=== PATIENT | male | born 1950 | race Caucasian/White ===

== ENCOUNTER 2019-08-09 09:50 | Emergency (ER) | payer OTHER, SELFPAY ==
--- NOTE | 2019-08-09 09:52 | CTR_ITS ---
PROCEDURE INFORMATION: Exam: CT Abdomen And Pelvis Without Contrast Exam date and time: 08/09/2019 10:52 AM Age: 68 years old Clinical indication: Abdominal pain; Patient HX: Right flank pain x 4 days TECHNIQUE: Imaging protocol: Computed tomography of the abdomen and pelvis without contrast. Radiation optimization: All CT scans at this facility use at least one of these dose optimization techniques: automated exposure control; mA and/or kV adjustment per patient size (includes targeted exams where dose is matched to clinical indication); or iterative reconstruction. COMPARISON: No relevant prior studies available. RADIATION DOSE METRICS: Total DLP (mGy-cm): 1792.55 FINDINGS: Lungs: visualized portions of the lung bases normal. Liver: Mild nodularity of the liver is present. Correlate regarding risk factors for hepatocellular disease. Fatty infiltration of the liver. Gallbladder and bile ducts: Normal. No calcified stones. No ductal dilation. Pancreas: Normal. No ductal dilation. Spleen: Small accessory spleen. Adrenals: Normal. No mass. Kidneys and ureters: hydronephrosis and hydroureter secondary to a calcification within the distal ureter adjacent to the right ureterovesical junction measuring approximately 2-3 mm. Mass midpole left kidney posteriorly which needs further workup to exclude a renal cell carcinoma. 3 cm. 2 mm calcification in 1 mm calcification midpole right kidney Stomach and bowel: Unremarkable. No obstruction. No mucosal thickening. Appendix: Appendix normal. Intraperitoneal space: Unremarkable. No free air. No significant fluid collection. Vasculature: Unremarkable. No abdominal aortic aneurysm. Lymph nodes: Unremarkable. No enlarged lymph nodes. Bladder: Unremarkable as visualized. Reproductive: Unremarkable as visualized. Bones/joints: Degenerative changes are present within the spine. Soft tissues: Unremarkable. CT/CT kidney stone [id number] IMPRESSION: 1. Hydronephrosis and hydroureter secondary to a calcification within the distal ureter adjacent to the right ureterovesical junction measuring approximately 2-3 mm. 2. Mass midpole left kidney posteriorly which needs further workup to exclude a renal cell carcinoma. 3 cm. Follow-up CT with contrast is recommended. 3. Mild nodularity of the liver is present. Correlate regarding risk factors for hepatocellular disease. 4. Fatty infiltration of the liver. 5. Appendix normal. Radiation Dose CTDIVOL = (mGy): DLP = 1792.55 (mGy-cm)
--- NOTE | 2019-08-09 09:53 | W.ED.ABDPA2 ---
Documented by User: RENE Saenz 08/09/19 10:11 HPI - Abdominal Pain General: Chief Complaint: Urogenital-Male Stated Complaint: RIGHT FLANK PAIN Time Seen by Provider: 08/09/19 09:53 Source: patient Mode of arrival: ambulatory Limitations: no limitations History of Present Illness: HPI narrative: Patient comes in today for complaints of right side flank pain. Patient states pains been there for about 4 days. Patient has tried some back aid and a muscle relaxer with some relief on the first dose but then the second and third dose did not seem to help much. Patient states movement does not exacerbate pain. Patient does have a history of renal calculi. Patient is also had a history of parathyroid disorder for surgical removal. Patient appears well. Patient appears in mild pain at rest. MD elicited complaint: flank pain Review of Systems General: Reports: 10 or more systems reviewed and unremarkable except in HPI and below : Reports: flank pain (right) PFSH ED PFSH: Social History Smoking and tobacco status: former smoker Physical Exam Const: COMMON NORMALS: no acute distress and patient oriented x3 GENERAL APPEARANCE: cooperative HENMT: COMMON NORMALS: normocephalic, TM's normal bilaterally and Normal external nose present HEAD & SCALP: normal to inspection and normocephalic NOSE: Normal external nose present TYMPANIC MEMBRANE: TM's normal bilaterally MOUTH: Normal oral and palatal mucosa present THROAT: posterior oropharynx normal Eye: GENERAL EYE: appearance normal, both eyes and all related structures Neck/C-Spine: COMMON NORMALS: full ROM Lymph: LYMPHATIC: no lymphadenopathy noted Chest: COMMONS NORMALS: normal inspection of the chest Resp: COMMON NORMALS: normal respiratory effort EFFORT & INSPECTION: Yes able to speak in complete sentences Cardio: COMMON NORMALS: regular rate and regular rhythm RATE: regular rate RHYTHM: regular rhythm GI: COMMON NORMALS: non-tender : COMMON NORMALS: Yes no CVA tenderness BLADDER/KIDNEY EXAM: Yes no CVA tenderness Back/Pelvis: COMMON NORMALS: no CVA tenderness and thoracic and lumbar spine normal to inspection Extremity: COMMON NORMALS: normal to inspection Neuro: COMMON NORMALS: patient oriented x3 and moves all extremities Psych: COMMON NORMALS: mental status grossly normal and cooperative Skin: COMMON NORMALS: no rashes or lesions noted GENERAL SKIN EXAM: no rashes or lesions noted Course Vital Signs: Vital signs: Vital Signs Temperature 99.1 F 08/09/19 09:54 Pulse Rate 97 08/09/19 09:54 Respiratory Rate 17 08/09/19 09:54 Blood Pressure 168/97 08/09/19 09:54 Pulse Oximetry 97 08/09/19 09:54 Coding Level of Care Code ED Emergency Medical Tech for g Fwd Exam Comprehensive Documented by User: Jeffrey Hill DO 08/09/19 09:55 HPI - Abdominal Pain General: Chief Complaint: Urogenital-Male Stated Complaint: RIGHT FLANK PAIN Time Seen by Provider: 08/09/19 09:53 PFSH ED PFSH: Social History Smoking and tobacco status: former smoker Course Vital Signs: Vital signs: Vital Signs Temperature 99.1 F 08/09/19 09:54 Pulse Rate 97 08/09/19 09:54 Respiratory Rate 17 08/09/19 09:54 Blood Pressure 168/97 08/09/19 09:54 Pulse Oximetry 97 08/09/19 09:54 Coding Level of Care Code ED Emergency Medical Tech for Chg Fwd Exam Comprehensive
[2019-08-09 09:54] VITALS: BP 168/97; PULSE 97; RESP 17; TEMP 37.3; O2SAT 97; BMI 34.9
[2019-08-09 10:09] LABS: Basophils % 0.3 %; Eosinophils # 0.2 10^3/uL (0.0-0.8); Eosinophils % 1.2 %; Hematocrit 49.4 % (42.0-52.0); Hemoglobin 16.2 g/dL (11.7-16.6); Lymphocytes # 1.1 10^3/uL (0.8-4.8); Lymphocytes % 7.5 %; Mean Corpuscular HGB Conc 32.8 g/dL (30.0-36.0); Mean Corpuscular Hemoglobin 29.8 pg (28.0-34.0); Mean Corpuscular Volume 90.8 fL (80-94); Mean Platelet Volume 10.7 fL (7.4-10.4); Monocytes # 1.4 10^3/uL (0.2-0.9); Monocytes % 8.9 %; Neutrophils # 12.5 10^3/uL (1.8-7.7); Neutrophils % 81.8 %; Nucleated Red Blood Cells % 0 %; Platelet Count 184 10^3/cmm (130-400); Red Blood Count 5.44 10^6/uL (4.1-5.3); Red Cell Distribution Width 12.1 % (12.1-15.1); White Blood Count 15.2 10^3/uL (4.0-10.0)
[2019-08-09 10:16] VITALS: RESP 18
[2019-08-09] MEDS: morphine 4 mg/mL SDV 1 mL IVP ×2 (10:16→13:56)
[2019-08-09] MEDS: ondansetron 2 mg/ML SDV 2 mL 4 MG IVP (10:17)
[2019-08-09 10:34] LABS: Alanine Aminotransferase 29 U/L (0-41); Albumin Level 4.2 g/dL (3.5-5.2); Alkaline Phosphatase 75 IU/L (40-130); Anion Gap 17.8 (5-19); Aspartate Amino Transferase 19 U/L (0-40); Blood Urea Nitrogen 18 mg/dL (8-23); Calcium 9.8 mg/dL (8.5-10.5); Carbon Dioxide 24 mmol/L (22-29); Chloride 98 mmol/L (98-107); Globulin 4.3 g/dL (1.3-4.6); Glomerular Filtration Rate 50.4 mL/min (90-130); Glucose 122 mg/dL (65-115); Lipase 16 U/L (13-60); Osmolality Calculated 280 mOsm/kg (285-295); Potassium 3.8 mmol/L (3.5-5.1); Sodium 136 mmol/L (136-145); Total Bilirubin 0.9 mg/dL (0.15-1.2); Total Protein 8.5 g/dL (6.6-8.7)
[2019-08-09 10:51] LABS: Add Urine Microscopic? YES; Bilirubin Urine Neg (NEGATIVE); Blood Urine Trace (Negative); Glucose Urine UA Norm (Normal); Ketones Urine Negative (Negative); Leukocyte Esterase Urine Negative (Negative); Nitrate Urine Negative (Negative); Protein Urine Neg (Negative); Urine Appearance Clear (CLEAR); Urine Color Yellow (Yellow); Urobilinogen Urine Norm (Negative); pH Urine 5 (5-7)
[2019-08-09 10:52] LABS: Add Urine Culture? No; Bacteria Urine 1+; Mucus Urine TRACE; Squamous Epithelial Cell Urine 0-4 (0-5); WBC Urine 0-4 /hpf (0-5)
--- NOTE | 2019-08-09 12:24 | CTR_ITS ---
PROCEDURE INFORMATION: Exam: CT Abdomen And Pelvis With Contrast Exam date and time: 08/09/2019 12:27 PM Age: 68 years old Clinical indication: Abnormal findings; Abnormal radiologic finding of the abdomen; Radiologic exam and body structure: Renal CT, left renal mass; Patient HX: Right flank pain, left renal mass; Additional info: Left renal mass, abnorm imaging TECHNIQUE: Imaging protocol: Computed tomography of the abdomen and pelvis with intravenous contrast. Radiation optimization: All CT scans at this facility use at least one of these dose optimization techniques: automated exposure control; mA and/or kV adjustment per patient size (includes targeted exams where dose is matched to clinical indication); or iterative reconstruction. Contrast material: VISIPAQUE 320; Contrast volume: 95 ml; Contrast route: INTRAVENOUS (IV); COMPARISON: CT kidney stone [id number] 08/09/2019 10:50 AM RADIATION DOSE METRICS: Total DLP (mGy-cm): 1635.29 FINDINGS: Lungs: Mild dependent atelectasis is present. Liver: Mild fatty infiltration of the liver with focal fatty sparing adjacent to the gallbladder fossa. Gallbladder and bile ducts: Normal. No calcified stones. No ductal dilation. Pancreas: Normal. No ductal dilation. Spleen: Small accessory spleen. Adrenals: Normal. No mass. Kidneys and ureters: Mass lower pole left kidney with enhancement. Nodular component. Renal cell carcinoma until proven otherwise. Mild hydronephrosis and hydroureter secondary to a calcification within the distal ureter adjacent to the right ureterovesical junction measuring approximately 2-3 mm. Stomach and bowel: Unremarkable. No obstruction. No mucosal thickening. Appendix: Appendix normal. Intraperitoneal space: Unremarkable. No free air. No significant fluid collection. Vasculature: Unremarkable. No abdominal aortic aneurysm. Lymph nodes: Unremarkable. No enlarged lymph nodes. Bladder: Unremarkable as visualized. Reproductive: Unremarkable as visualized. Bones/joints: Degenerative changes are present within the spine. Mild compression fracture of the anterior column of L1. No retropulsed fragment. Soft tissues: Unremarkable. CT/CT abdomen pelvis w con* [id number] IMPRESSION: 1. Mass lower pole left kidney with enhancement. Nodular component. Renal cell carcinoma until proven otherwise. 3.8 cm. Within the perirenal space. 2. Appendix normal. 3. Mild hydronephrosis and hydroureter secondary to a calcification within the distal ureter adjacent to the right ureterovesical junction measuring approximately 2-3 mm. Elizabeth ureteric stranding and mild perinephric stranding. 4. Mild fatty infiltration of the liver with focal fatty sparing adjacent to the gallbladder fossa. 5. Mild compression fracture of the anterior column of L1. No retropulsed fragment. Radiation Dose CTDIVOL = (mGy): DLP = 1635.29 (mGy-cm)
--- NOTE | 2019-08-09 12:45 | DCPLANNER ---
services program manager was asked to schedule a follow up appointment for patient with Dr. Velez. services program manager called the office of Dr. Velez, spoke with Cris, gave clinic patients information. services program manager was told that patients information would be printed and reviewed. Clinic will call patient with appointment information. Patient has [employer] insurance, major case detective called May with [facility] and told her that patient was needing a follow up with Dr. Velez.
[2019-08-09] MEDS: iodixanol 320 mg/mL 100mL Btl IV (13:18)
[2019-08-09] MEDS: cefTRIAXone 1,000 MG in sodium chloride 0.9% (plus) 50 ML 100 MG IV (13:55)
[2019-08-09 13:56] VITALS: RESP 16; O2SAT 96
[2019-08-09] MEDS: ketorolac 30 mg/mL INJ 10 MG IVP (13:56)
[2019-08-09 14:00] VITALS: BP 172/99; PULSE 89; RESP 16; O2SAT 94
[2019-08-09 14:20] VITALS: BP 172/99; PULSE 90; RESP 17; O2SAT 95
--- NOTE | 2019-08-14 13:41 | DCPLANNER ---
Patient has a follow up appointment scheduled for 08.15.19 with ortho. Clinic will call patient with appointment information.
--- NOTE | 2019-08-16 11:08 | DCPLANNER ---
Patient did attend appointment scheduled for 08.15.[address] Velez.
== END 2019-08-09 14:24 | disposition home or self-care (01) ==
PROVIDERS: Emergency Provider Nurse Practitioner Family; PCP Internal Medicine
DX: R10.9 Unspecified abdominal pain (principal); Z87.891 Personal history of nicotine dependence
CPT/HCPCS: 12345; 36415; 74176; 74177; 80053; 81001; 83690; 85025; 96365; 96375; 96376; 99283; 99284; J0696; J1885; J2270; J2405; Q9967

== ENCOUNTER 2019-08-15 08:56 | Outpatient (CLI) | payer OTHER, SELFPAY ==
--- NOTE | 2019-08-15 09:02 | XRR_ITS ---
PROCEDURE INFORMATION: Exam: XR Abdomen, 1 View Exam date and time: 08/15/2019 9:24 AM Age: 68 years old Clinical indication: Condition or disease; Kidney or ureter condition; Calculus (stone) in ureter; Additional info: Kidney stone TECHNIQUE: Imaging protocol: XR of the abdomen. Views: Frontal supine view of the abdomen. 1 View. COMPARISON: CT abdomen pelvis w con* [id number] 08/09/2019 1:05 PM FINDINGS: Gastrointestinal tract: Normal. No bowel dilation. Bones/joints: Degenerative changes of bilateral hip joints. Diffuse demineralization of the bones. Degenerative changes of the lumbar spine. No acute fracture. No dislocation. XR/XR KUB [id number] IMPRESSION: No acute abnormality.
== END 2019-08-15 08:57 | disposition home or self-care (01) ==
LOC: RAD 08:59
PROVIDERS: PCP Internal Medicine; Visit Provider Urology
DX: N20.0 Calculus of kidney (principal)
CPT/HCPCS: 74018; 81001; 82365

== ENCOUNTER 2019-12-25 09:27 | Outpatient (CLI) | payer OTHER, SELFPAY ==
--- NOTE | 2019-12-25 17:45 | ONC CON_ITS ---
Dr. Sheikh New Patient Note Patient: Hemant Michaels Unit #: [id number]: [id number] Dicatated By: Savita Sheikh M.D.Date of Visit: Dec 25, 2019 Onc MED New Patient/Consult Referring Physician: Paige Aguilar History of Present Illness: Mr. 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 Patient tolerated procedure well now being followed by Dr. Velez, urologist As per patient his PMD wanted to make sure that nothing else is needed after surgery, that is why he was referred to oncology clinic. Patient denies any fever chills, denies any nausea vomiting denies any hematuria denies any pelvic pain denies any weight loss denies any jaundice denies any hemoptysis or hematemesis. Past Medical History: Mr. Michaels's medical history is unremarkable. Past Surgical History: Mr. Michaels's surgical/procedural history consists of left nephrectomy, lithotripsy, and parathyroidectomy. Medications: Rosuvastatin Calcium 0.5 Tablet (of 20 mg) Oral daily Allergies: No Known Allergies. Social History: Mr. Michaels is and he is an unknown. Mr. Michaels no longer smokes. Family History: Mr. Michaels's mother at age 98: natural causes. Mr. Michaels's father at age 91: heart disease, and prostate cancer. Review Of Symptoms: Constitutional - Appetite is good and weight is stable. No fever, night sweats, or hot flashes. Energy level is fair, ENMT - Positive for sinus congestion/drainage. No mouth sores. No sore throat or difficulty swallowing, Hematologic/Lymphatic - No abnormal bruising or bleeding, Respiratory - No shortness of breath. No cough. No pleuritic pain or hemoptysis, Cardiovascular - No angina pain. No palpitations, Gastrointestinal - No nausea or vomiting. Positive for heartburn and acid reflux. No diarrhea or constipation. No blood in the stool or black stools, Genitourinary (M) - No dysuria or hematuria. Positive for urinary frequency. No urgency or incontinence, Musculoskeletal - No joint or bone pain, Neurologic - No headache or dizziness. No numbness or tingling. No other focal neurologic symptoms, Psychiatric - No anxiety or depression. No insomnia. Vital Signs: Performed on Dec 25, 2019 11:37: 0, 42.18 (HIGH), 2.03 sq.m, 62.00 in, 100 %, 75 /min, 24 /min, 147/89 mm(hg) (HIGH), 98.1 F (LOW), and 230.6 lbs (HIGH). Performance Status: 0 - Fully active, able to carry on all predisease activities without restrictions. (ECOG) Physical Examination: ENMT - No mouth sores, no thrush, no jaundice, Respiratory - Lungs are clear to auscultation, Cardiovascular - Regular rate and rhythm of heart, Abdomen - Soft, bowel sounds present, Extremities - No visible edema. Lab/Imaging: Most recent lab results are not available for this patient. 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 status post left nephrectomy done on September 24, 2019 final pathology report showed 3.6 x 3.5 x 3 cm unifocal, clear-cell renal cell carcinoma with nose sarcomatoid or rhabdoid feature, grade 2, clear surgical margins, final pathology T1a,( less than 4 cm), NX, MX, stage I Plan: Discussed with patient regarding his disease status and further options, considering early stage disease, as per NCCN guidelines no role of adjuvant therapy rather follow-up with CT scan or MRI scan (preferred) of abdomen pelvis within 3 to 12 months of surgery and then annually for 3 years and longer if clinically indicated and a chest x-ray annually for 5 years and clinical evaluation annually with H&P. Patient being followed by Dr. Velez regularly, we will see him on as-needed basis. Signed By: Savita Sheikh M.D. <<Signature on File>>
== END 2019-12-25 09:28 | disposition home or self-care (01) ==
LOC: ONCMED 09:31
PROVIDERS: PCP Family Medicine; Visit Provider Internal Medicine Hematology & Oncology
DX: C64.2 Malignant neoplasm of left kidney, except renal pelvis (principal); Z90.5 Acquired absence of kidney
CPT/HCPCS: 99203

== ENCOUNTER 2020-01-16 14:32 | Outpatient (CLI) | payer OTHER, SELFPAY ==
--- NOTE | 2020-01-16 14:47 | XR_ITS ---
WS: [id number] Chest 2 views, 01/16/2020 Clinical Data: Renal mass Comparison: None. Findings: No nodules, masses or effusions are seen. The heart is normal. The pulmonary vascularity is not increased. No pneumonia or pneumothorax is seen. The aortic arch and descending aorta are tortuo us. XR/XR chest 2V* [id number] Impression: Atherosclerosis.
[2020-01-16 15:13] LABS: Basophils # 0.1 10^3/uL (0.0-0.1); Basophils % 0.7 %; Eosinophils # 0.3 10^3/uL (0.0-0.8); Eosinophils % 3.3 %; Hematocrit 44.4 % (42.0-52.0); Hemoglobin 14.7 g/dL (11.7-16.6); Lymphocytes # 1.8 10^3/uL (0.8-4.8); Lymphocytes % 23.7 %; Mean Corpuscular HGB Conc 33.1 g/dL (30.0-36.0); Mean Corpuscular Hemoglobin 29.5 pg (28.0-34.0); Mean Corpuscular Volume 89.2 fL (80-94); Mean Platelet Volume 10.7 fL (7.4-10.4); Monocytes # 0.9 10^3/uL (0.2-0.9); Monocytes % 12.2 %; Neutrophils # 4.45 10^3/uL (1.8-7.7); Neutrophils % 59.6 %; Nucleated Red Blood Cells % 0 %; Platelet Count 233 10^3/cmm (130-400); Red Blood Count 4.98 10^6/uL (4.1-5.3); Red Cell Distribution Width 12.8 % (12.1-15.1); White Blood Count 7.5 10^3/uL (4.0-10.0)
[2020-01-16 15:51] LABS: Alanine Aminotransferase 28 U/L (0-41); Albumin Level 4.3 g/dL (3.5-5.2); Alkaline Phosphatase 90 IU/L (40-130); Anion Gap 15.5 (5-19); Aspartate Amino Transferase 19 U/L (0-40); Blood Urea Nitrogen 19 mg/dL (8-23); Calcium 9.2 mg/dL (8.5-10.5); Carbon Dioxide 26 mmol/L (22-29); Chloride 103 mmol/L (98-107); Globulin 3.3 g/dL (1.3-4.6); Glomerular Filtration Rate 46.4 mL/min (90-130); Glucose 102 mg/dL (65-115); Osmolality Calculated 292 mOsm/kg (285-295); Potassium 4.5 mmol/L (3.5-5.1); Sodium 140 mmol/L (136-145); Total Bilirubin 0.3 mg/dL (0.15-1.2); Total Protein 7.6 g/dL (6.6-8.7)
== END 2020-01-16 14:33 | disposition home or self-care (01) ==
PROVIDERS: PCP Family Medicine; Visit Provider Urology
DX: N28.89 Other specified disorders of kidney and ureter (principal); I70.90 Unspecified atherosclerosis
CPT/HCPCS: 36415; 71046; 80053; 81003; 85025

== ENCOUNTER 2020-04-15 14:33 | Outpatient (CLI) | payer OTHER, SELFPAY ==
--- NOTE | 2020-04-15 14:30 | FLR_ITS ---
PROCEDURE INFORMATION: Exam: KUB Exam date and time: 04/15/2020 2:48 PM Age: 69 years old Clinical indication: Condition or disease; Cancer; Kidney, left; kidney Additional info: Left Kidney cancer TECHNIQUE: Imaging protocol: KUB. COMPARISON: CR XR KUB [id number] 08/15/2019 9:17 AM FINDINGS: Abdomen: The bowel gas pattern is within normal limits in a nonspecific pattern. Negative for radiodense urinary tract stones. Bones are unremarkable. XR/XR KUB [id number] IMPRESSION: Negative examination of the abdomen
== END 2020-04-15 14:34 | disposition home or self-care (01) ==
LOC: RAD 14:35
PROVIDERS: PCP Family Medicine; Visit Provider Urology
DX: C64.2 Malignant neoplasm of left kidney, except renal pelvis (principal)
CPT/HCPCS: 74018; 80053; 81003; 85025

== ENCOUNTER → 2020-04-16 10:02 | Outpatient (BNVA) | payer OTHER, SELFPAY | PROVIDERS: PCP Family Medicine; Visit Provider Surgery | DX: L72.3 Sebaceous cyst (principal); Z20.822 Contact with and (suspected) exposure to COVID-19 | CPT/HCPCS: 87635 ==

== ENCOUNTER 2020-04-21 06:04 | Day surgery (SDC) | payer OTHER, SELFPAY ==
[2020-04-17 14:43] VITALS: BMI 39.6
[2020-04-21 06:15] VITALS: BP 165/91; PULSE 73; RESP 18; TEMP 36.6; O2SAT 97
--- NOTE | 2020-04-21 06:29 | W.PM.OPSUD ---
Surgery/Procedure H&P Update DATE OF PROCEDURE: April 21, 2020 DATE H&P PERFORMED: 04/14/20 H&P UPDATE INFORMATION: I have reviewed H&P completed within last 30 days, I have examined patient prior to procedure and No changes to prior documentation PREOP DIAGNOSIS: Left-sided back cyst PRIMARY INDICATION FOR PROCEDURE: The same PLANNED PROCEDURE: Operation Date: 04/21/20 07:25 Proposed Procedures p EXCISION OF LEFT BACK CYST 93267 L72.3(Left) - Roshan Recinos MD
[2020-04-21] MEDS: sodium chloride 0.9% 1,000 ML 30 ML IV (06:37)
--- NOTE | 2020-04-21 06:55 | ANES.PREANE2 ---
Pre-Anesthetic Assessment Pre-Anesthetic Assessment: Height/Weight: Height 1.65 m Weight 107.955 kg Preop Diagnosis: Left-sided back cyst Proposed Procedure: Operation Date: 04/21/20 07:25 Proposed Procedures p EXCISION OF LEFT BACK CYST 42645 L72.3(Left) - Roshan Recinos MD Was Beta Kendal taken within 24 hours: N/A Last intake: Intake Last Liquid Date 04/20/20 Last Liquid Time 20:00 Last Solid Date 04/20/20 Last Solid Time 20:00 Social: Social History: No alcohol and No tobacco Exam: Pre-Anes Outpt Exam: alert, oriented x 3, clear to auscultation bilaterally and regular rate & rhythm Airway: Submandibular: WNL Cervical ROM: WNL MP: 2 Additional comments: upper edentulous : : Chronic renal Insufficiency GI: GI: GERD Metabolic: Metabolic: Morbid obesity Anesthetic Plan: ASA status: 3 Anesthesia: General Risk of > 500 ml blood loss (7ml/kg in children): No Meds/Allergies Current Medications: Current Medications Generic Name Dose Route Start Last Admin Trade Name Freq PRN Reason Stop Dose Admin Sodium Chloride 1,000 mls @ 30 ml s/hr 04/21/20 06:15 04/21/20 06:37 Sodium Chloride 0.9% IV 30 mls/hr .Q24H XAVIER Administration PFSH Anesthesia PFSH: Medical History (Updated 04/18/20 @ 07:49 by Arvin Velez MD) Arthritis Chronic kidney disease Clear cell carcinoma of left kidney GERD (gastroesophageal reflux disease) Renal calculi Urolithiasis Surgical History History of thyroid surgery Family History Mother Cancer Father No problems noted. Social History Smoking and tobacco status: former smoker Alcohol intake: never Marital status: Current occupational status: retired History of recent travel: No Data Anesthesia Cardiac Studies: No Data to Display
--- NOTE | 2020-04-21 07:27 | SUR.OPER ---
post debridement measurement - 8x2x2 cm
[2020-04-21] MEDS: lidocaine 2% INJ 20 mL INJECTION (07:29)
[2020-04-21] MEDS: neomycin-poly-bacitracin oint 28 gm 1 APPLIC TOPICAL (07:31)
--- NOTE | 2020-04-21 07:35 | P.OP_ITS ---
Operative Report Date of procedure: April 21, 2020 Pre-op Diagnosis: Left-sided back cyst Post-op diagnosis: other (Left sided sebaceous cyst with surrounding indurated subcutaneous tissue) Procedure Done: Excision of left sided back mass Specimens removed/disposition: Left-sided back mass measures 8 x 3 x 2 cm Short sutures marked superior and long sutures marked right lateral Surgeon: Roshan Recinos Floor Coverings Salesperson: ip technology transactions attorney Misty Circulating nurse Pia Anesthesia: MAC (Liza Nino) Estimated blood loss (mL): 5 Condition: stable Disposition: same day Brief History: This is a pleasant 69 years old gentleman presents with recurrent infection of left-sided back sebaceous cyst. Full H&P and informed consent per chart. Procedure: After identifying the patient holding area, left-sided back mass was marked before the procedure by myself, patient was then taken to the operative suite, was placed in right lateral position, All pressure points were padded.IV antibiotics were given per protocol,IV propofol was infused by the anesthesia provider, prep and drape of the left upper and mid back regions were done under the usual sterile technique. Time-out was done verifying the patient's name/date of /planned procedure and destination after the procedure, all were in agreement. After palpation of the mass Infiltration of lidocaine 2%.I did an elliptical incision on top of the mass including the punctum. I was able to dissect using sharp dissection and the whole cyst was excised from the surrounding tissues i ncluding indurated subcutaneous tissues that was excised as well en mass, the specimen was excised and marked with short sutures superior and long sutures marked right lateral. Measurements of the wound after excision of the mass 8 x 2 x 2 cm. Copious and thorough irrigation of the cavity was done and hemostasis, followed by deep dermal closure by 2-0 Vicryl, followed by 3-0 Vicryl then continuous 2/0 nylon for skin closure. Lidocaine 2% was injected at the site of the incision, followed by triple antibiotic ointment and dry dressing then pressure dressing. Patient tolerated the procedure well, counts of instruments, needles and sponges were completed at the end of the procedure. And then patient was taken to the recovery area in stable condition. I was present for the whole entire procedure
[2020-04-21 07:39] VITALS: BP 124/75; PULSE 81; RESP 17; TEMP 36.5; O2SAT 92
[2020-04-21 07:45] VITALS: BP 132/79; PULSE 80; RESP 16; TEMP 36.6; O2SAT 95
[2020-04-21 07:50] VITALS: BP 144/89; PULSE 83; RESP 18; TEMP 36.6; O2SAT 94
[2020-04-21 08:17] VITALS: BP 140/82; PULSE 82; RESP 18; O2SAT 95
[2020-04-21] MEDS: HYDROcodone-acetaminophen 5-325 mg Tablet 1 TAB PO (08:29)
--- NOTE | 2020-04-21 12:28 | ANE.PACU2 ---
Inpatient post-anesthesia follow up: Airway intact: Yes Vital signs: Temperature 97.8 F Pulse Rate 82 Respiratory Rate 18 Blood Pressure 140/82 Pulse Oximetry 95 Oxygen Delivery Me thod Room Air Oxygen Flow Rate Fraction of Inspir ed Oxygen Hydration adequate: Yes Nausea and vomiting: No Pain level: 1 Mental status: Baseline
--- NOTE | 2020-04-21 15:11 | W.PM.OPSUD ---
Surgery/Procedure H&P Update DATE OF PROCEDURE: April 21, 2020 DATE H&P PERFORMED: 04/14/20 H&P UPDATE INFORMATION: I have reviewed H&P completed within last 30 days, I have examined patient prior to procedure, No changes to prior documentation and H&P is in [facility] EMR on date indicated PREOP DIAGNOSIS: Bladder stones PLANNED PROCEDURE: Operation Date: 04/21/20 07:25 Proposed Procedures p EXCISION OF LEFT BACK CYST 16014 L72.3(Left) - Roshan Recinos MD
== END 2020-04-21 08:45 | disposition home or self-care (01) ==
PROVIDERS: PCP Family Medicine; Visit Provider Surgery
PROC: (CPT 11406; principal; 2020-04-21 07:15)
DX: L72.0 Epidermal cyst (principal); K21.9 Gastro-esophageal reflux disease without esophagitis; E66.01 Morbid (severe) obesity due to excess calories; Z68.39 Body mass index [BMI] 39.0-39.9, adult; M19.90 Unspecified osteoarthritis, unspecified site; N18.9 Chronic kidney disease, unspecified; Z87.891 Personal history of nicotine dependence
CPT/HCPCS: 11406; 12034; 88304; 96365; J0131; J0690; J2704; J3010; J7030

== ENCOUNTER 2020-07-16 13:15 | Outpatient (CLI) | payer OTHER, SELFPAY ==
--- NOTE | 2020-07-16 13:15 | XR_ITS ---
WS: [id number] KUB, AP view, 07/16/2020 Clinical Data: N20.9 - Urinary calculus, unspecified Comparison: KUB, 04/15/2020. Findings: No abnormal intraabdominal masses or calcifications are seen. There is no dilatated small bowel or ev idence of obstruction. There are phleboliths in the true pelvis. There is a large amount of fecal material throughout the co nathen. XR/XR KUB [id number] Impression: Negative KUB.
[2020-07-16 13:52] LABS: Basophils # 0.1 10^3/uL (0.0-0.1); Eosinophils # 0.2 10^3/uL (0.0-0.8); Eosinophils % 2.8 %; Hematocrit 43.1 % (42.0-52.0); Hemoglobin 13.9 g/dL (11.7-16.6); Lymphocytes # 1.8 10^3/uL (0.8-4.8); Lymphocytes % 27.1 %; Mean Corpuscular HGB Conc 32.3 g/dL (30.0-36.0); Mean Corpuscular Hemoglobin 29.9 pg (28.0-34.0); Mean Corpuscular Volume 92.7 fL (80-94); Mean Platelet Volume 10.4 fL (7.4-10.4); Monocytes # 0.7 10^3/uL (0.2-0.9); Monocytes % 11.1 %; Neutrophils # 3.85 10^3/uL (1.8-7.7); Neutrophils % 57.9 %; Nucleated Red Blood Cells % 0 %; Platelet Count 215 10^3/cmm (130-400); Red Blood Count 4.65 10^6/uL (4.1-5.3); Red Cell Distribution Width 12.4 % (12.1-15.1); White Blood Count 6.7 10^3/uL (4.0-10.0)
== END 2020-07-16 13:16 | disposition home or self-care (01) ==
PROVIDERS: PCP Family Medicine; Visit Provider Urology
DX: C64.2 Malignant neoplasm of left kidney, except renal pelvis (principal); N20.9 Urinary calculus, unspecified
CPT/HCPCS: 36415; 74018; 80053; 81003; 85025

== ENCOUNTER 2020-07-25 07:52 | Outpatient (CLI) | payer OTHER, SELFPAY ==
--- NOTE | 2020-07-25 08:21 | XR_ITS ---
WS: [id number] PA and lateral chest, 07/25/2020 Clinical Data: CLEAR CELL CARCINOMA OF LEFT KIDNEY Comparison: PA and lateral chest, 01/16/2020. Findings: No nodules, masses or effusions are seen. The heart is normal. The pulmonary vascularity is not increased. No pneumonia or pneumothorax is seen. The aortic arch and descending aorta are tortuo us. XR/XR chest 2V* [id number] Impression: Atherosclerosis.
[2020-07-25] MEDS: iodixanol 320 mg/mL 100mL Btl IV (08:22)
--- NOTE | 2020-07-25 09:30 | CT_ITS ---
WS: [id number] CT ABDOMEN AND PELVIS WITH AND WITHOUT CONTRAST HISTORY: ABDOMINAL MASS TECHNIQUE: Unenhanced 5 mm axial imaging first performed through the abdomen. Post contrast imaging t hrough the abdomen and pelvis. Oral contrast has been provided. Sagittal and coronal reformats are s ubmitted. All CT scans at [facility] use at least one of these dose optimization techniqu es: automated exposure control; mA and/or kV adjustment per patient size (includes targeted exams whe re dose is matched to clinical indication); or iterative reconstruction. CONTRAST: Visipaque 320; 95 mL IV. DLP: 4408.8 mGy.cm COMPARISON: 08/09/2019 Lung bases are clear. Heart is normal size. Small hiatal hernia. Liver normal size. Fat-containing lesion measuring 12 mm along the diaphragmatic surface of the liver was not present on the prior exam. No additional abnormalities in the liver. Gallbladder, pancreas, spleen and adrenal glands are negative. Very mild atherosclerosis aorta. RIGHT kidney: No calcification or mass or obstruction. LEFT kidney: Prior LEFT nephrectomy. No mass at the resection site or renal fossa. No GI tract obstruction. The appendix is normal. There are a few diverticula in the sigmoid colon wit hout inflammation. Postsurgical changes along the anterior abdominal wall. Small umbilical hernia contains fat only. In the central mesentery there mesenteric misting with the pseudocapsule consistent with mesenteric a denitis. No associated adenopathy. There is an additional lipomatous mass with soft tissue stranding extending into the LEFT abdomen. Broad abutment of the anterior abdominal wall musculature of this fa tty tumor. There is also displacement of the small bowel loops but no obstruction. Encapsulated fatty mass extends over length of 12.2 cm x 13.6 x 10.5 cm. No nodularity or soft tissue mass. Well-distended urinary bladder. No enhancing masses in the bladder. Straightening of the normal lumbar lordosis. No osteoblastic or osteolytic bone disease. CT/CT abdomen pelvis wo/w [id number] IMPRESSION: 1. Status post LEFT nephrectomy. No mass at the LEFT renal bed or adenopathy. 2. Normal RIGHT kidney. 3. Central sclerosing mesenteritis with progression since 08/09/2019. 4. Adjacent encapsulated fat-containing mass with central soft tissue strandin g which is in part contiguous with the sclerosing mesenteritis. This fatty mass measures 12.2 x 13.6 x 10.5 cm and is new since 08/09/2019. Cannot exclude lipo sarcoma but this mass is probably benign. 5. Small fatty tumor along the diaphragmatic surface RIGHT lobe of the liver m easures 12 mm a new since 08/09/2019.
== END 2020-07-25 07:53 | disposition home or self-care (01) ==
LOC: RAD 07:55
PROVIDERS: PCP Family Medicine; Visit Provider Urology
DX: R19.04 Left lower quadrant abdominal swelling, mass and lump (principal); C64.2 Malignant neoplasm of left kidney, except renal pelvis; Z90.5 Acquired absence of kidney; K65.4 Sclerosing mesenteritis; D49.0 Neoplasm of unspecified behavior of digestive system; I70.90 Unspecified atherosclerosis
CPT/HCPCS: 71046; 74178; 81003

== ENCOUNTER → 2020-07-30 10:04 | Outpatient (BNVA) | payer OTHER, SELFPAY | PROVIDERS: PCP Family Medicine; Visit Provider Surgery | DX: R19.04 Left lower quadrant abdominal swelling, mass and lump (principal); Z20.822 Contact with and (suspected) exposure to COVID-19 | CPT/HCPCS: 87635 ==

== ENCOUNTER 2020-08-04 16:20 | Inpatient (IN) | payer OTHER, SELFPAY ==
[2020-08-01 12:48] VITALS: BMI 38.7
[2020-08-03 20:05] VITALS: BP 135/80; PULSE 96; RESP 17; TEMP 36.6; O2SAT 94
[2020-08-04] VITALS (14 sets, daily range): BP systolic 136–162; BP diastolic 84–97; PULSE 74–98; RESP 12–29; TEMP 36.1–37; O2SAT 93–100
--- NOTE | 2020-08-04 12:08 | W.PM.OPSUD ---
Surgery/Procedure H&P Update DATE OF PROCEDURE: August 04, 2020 DATE H&P PERFORMED: 07/28/20 H&P UPDATE INFORMATION: I have reviewed H&P completed within last 30 days, I have examined patient prior to procedure and No changes to prior documentation PREOP DIAGNOSIS: Abdominal mass PLANNED PROCEDURE: Operation Date: 08/04/20 12:25 Proposed Procedures p lap possible open excision abd mass, possible bowel resection 04175 R19.0(Not Applicable) - Noman Dick MD
--- NOTE | 2020-08-04 12:45 | ANES.PREANE2 ---
Pre-Anesthetic Assessment Pre-Anesthetic Assessment: Height/Weight: Height 1.68 m Weight 108.862 kg Temp Pulse Resp BP Pulse Ox 98.6 F 74 18 136/86 95 08/04/20 11:31 08/04/20 11:31 08/04/20 11:31 08/04/20 11:31 08/04/20 11:31 Preop Diagnosis: Abdominal mass Proposed Procedure: Operation Date: 08/04/20 12:25 Proposed Procedures p lap possible open excision abd mass, possible bowel resection 53150 R19.0(Not Applicable) - Noman Dick MD Familial anesthetic complications: none Was Beta Kendal taken within 24 hours: N/A Was Clonidine taken within 24 hours: N/A Last intake: Intake Last Liquid Date 08/03/20 Last Liquid Time 22:30 Last Solid Date 08/03/20 Last Solid Time 22:30 Social: Social History: No alcohol and No tobacco Exam: Pre-Anes Outpt Exam: alert, oriented x 3, clear to auscultation bilaterally and regular rate & rhythm Airway: Cervical ROM: WNL MP: 2 Dentition: False (uppers) GI: GI: GERD Comments: GI mass Metabolic: Metabolic: Hyperlipidemia and Morbid obesity Anesthetic Plan: ASA status: 3 Anesthesia: General Risk of > 500 ml blood loss (7ml/kg in children): No PFSH Anesthesia PFSH: Medical History Arthritis Chronic kidney disease Clear cell carcinoma of left kidney GERD (gastroesophageal reflux disease) Renal calculi Urolithiasis Surgical History (Updated 07/28/20 @ 10:20 by Noman Dick MD) H/O left nephrectomy History of colonoscopy 2019 History of thyroid surgery Family History Mother Cancer Father No problems noted. Social History Smoking and tobacco status: former smoker Alcohol intake: never Marital status: Current occupational status: retired History of recent travel: No Data Anesthesia Cardiac Studies: No Data to Display
--- NOTE | 2020-08-04 16:06 | PM.OP ---
Operative Report Date of procedure: August 04, 2020 Pre-op Diagnosis: 1. 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 Abdominal mass measuring 13 x [address] scan 3. Central sclerosing mesenteritis Post-op Findings: 1. Abdominal mass measuring 15 x 12 x 10 cm adherent to the anterior abdominal wall inferior to the prior robotic incision. 2. Adhesions to the central mesentery of small bowel Procedure Done: 1. Laparoscopic resection of intra-abdominal mass 2. Laparoscopic lysis of adhesions 15 minutes Specimens removed/disposition: Abdominal mass Peritoneum from central mesentery Surgeon: Noman Dick Anesthesia: General Estimated blood loss (mL): 20 IV fluids (mL): 1,000 Urine output (mL): 100 Condition: stable Disposition: PACU Procedure: The patient was taken to the operating room and intubated under general anesthesia after IV antibiotic had been administered. A Jaquez catheter was placed and the abdomen is prepped and draped in a sterile manner. A 1 cm incision was made in the right upper quadrant using 15 blade, subcu tissues divided and a varies needle was placed and 15 mm of pneumoperitoneum was created. Using Optiview technique a 10 a 5 mm port was placed with a 5 mm 30 degree scope was introduced. On examination of the peritoneal cavity there is no evidence of peritoneal carcinomatosis or liver metastasis. 2 separate 5 mm ports were placed in the anterior axillary line at the level of the umbilicus and in the right lower quadrant under direct visualization. It appeared that the large mass was adherent to the abdominal wall inferior to the umbilicus and also adhesed to omentum as well as central mesentery. Using LigaSure lysis of adhesions was performed until the omentum as well as the central mesentery was from the abdominal mass and the mass itself was attached just to the abdominal wall. Using LigaSure, the retrorectus space was entered and the mass along with the posterior rectus sheath/transversalis fascia/peritoneum was excised from the anterior abdominal wall by dissecting in the retrorectus space until the mass was completely from the abdominal wall. There did not appear to be any significant involvement of the retrorectus space. 10 mm clips were placed along the edge of the defect in the peritoneum to identify the site of the excision for any future intervention if needed. 20 cc of saline mixed with 20 of Exparel mixed with 20 cc of 0.5% Marcaine infiltrated in the midclavicular line for a TAP block under laparoscopic visualization. At this point the prior midline scar was excised, subcutaneous tissues divided to enter the peritoneal cavity and the wound protector was placed. The incision had to be extended both superiorly and inferiorly below the umbilicus in order to extract the large mass. The ports were removed and there was no bleeding noted from the port sites. The fascia in the midline was closed using running #1 looped PDS, subcutaneous tissue was irrigated with saline and approximate using interrupted 3-0 Vicryl suture and skin at all 4 incisions were closed using 4-0 Monocryl and Dermabond. The patient was extubated, Jaquez catheter removed and he was transferred to recovery room in stable condition.
[2020-08-04] MEDS: fentaNYL 50 mcg/mL INJ 2mL IVP ×2 (16:18→16:23)
[2020-08-04] MEDS: HYDROmorphone 1 mg/mL INJ 1 mL 0.25 MG IVP (16:29)
[2020-08-04] MEDS: D5-NS 0.45% + KCL 20 mEq 20 MEQ/1,000 ML BAG 100 MEQ IV (17:50)
[2020-08-04] MEDS: sennosides-docusate Tablet 1 TAB PO (17:52)
--- NOTE | 2020-08-04 18:03 | ANE.PACU2 ---
Inpatient post-anesthesia follow up: Airway intact: Yes Vital signs: Temperature 97.6 F Pulse Rate 84 Respiratory Rate 18 Blood Pressure 155/92 Pulse Oximetry 94 Oxygen Delivery Me thod Room Air Oxygen Flow Rate 8 Fraction of Inspir ed Oxygen Hydration adequate: Yes Nausea and vomiting: No Pain level: 3 Mental status: Baseline
[2020-08-04] MEDS: famotidine 20 mg/2 mL INJ IVP (20:20)
[2020-08-04] MEDS: HYDROcodone-acetaminophen 5-325 mg Tablet 1 TAB PO (20:20)
[2020-08-04] MEDS: morphine 4 mg/mL SDV 1 mL 3 MG IVP (23:08)
[2020-08-05] VITALS: BP 150/82; PULSE 100; RESP 17; TEMP 37.7; O2SAT 93
[2020-08-05] MEDS: D5-NS 0.45% + KCL 20 mEq 20 MEQ/1,000 ML BAG 100 MEQ IV (03:29)
[2020-08-05 04:00] VITALS: BP 134/79; PULSE 98; RESP 17; TEMP 37; O2SAT 94
--- NOTE | 2020-08-05 04:02 | PC.NURSE ---
SHIFT SUMMARY PT HAS DONE WELL THROUGHOUT THE NIGHT - PAIN WELL CONTROLLED WITH ORAL HYDROCODONE - PT HAS VOIDED WELL - DENIES COMPLAINTS OR NEEDS UP TO THIS POINT
[2020-08-05 08:00] VITALS: BP 136/79; PULSE 84; RESP 18; TEMP 36.9; O2SAT 93
[2020-08-05] MEDS: sennosides-docusate Tablet 1 TAB PO (08:33)
[2020-08-05] MEDS: famotidine 20 mg/2 mL INJ IVP (08:34)
[2020-08-05] MEDS: HYDROcodone-acetaminophen 5-325 mg Tablet 1 TAB PO ×2 (08:34→14:32)
--- NOTE | 2020-08-05 09:48 | PC.NURSE ---
rcvd telephone order to discontinue IV fluids. typewriter repairer put order in.
[2020-08-05 10:36] LABS: Basophils % 0.3 %; Eosinophils % 0.3 %; Hematocrit 40.2 % (42.0-52.0); Hemoglobin 13.2 g/dL (11.7-16.6); Lymphocytes # 1.2 10^3/uL (0.8-4.8); Mean Corpuscular HGB Conc 32.8 g/dL (30.0-36.0); Mean Corpuscular Hemoglobin 30.1 pg (28.0-34.0); Mean Corpuscular Volume 91.8 fL (80-94); Mean Platelet Volume 10.8 fL (7.4-10.4); Monocytes # 1.3 10^3/uL (0.2-0.9); Monocytes % 9.6 %; Neutrophils # 10.78 10^3/uL (1.8-7.7); Neutrophils % 80.6 %; Nucleated Red Blood Cells % 0 %; Platelet Count 201 10^3/cmm (130-400); Red Blood Count 4.38 10^6/uL (4.1-5.3); Red Cell Distribution Width 12.3 % (12.1-15.1); White Blood Count 13.4 10^3/uL (4.0-10.0)
--- NOTE | 2020-08-05 10:39 | PC.CHAP ---
Pastoral Care Encounter/Spiritual Assessment Type of Contact [] Declined pickers material handlers visit [] Patient/Family/Request visit [] Outpatient visit [] Follow-up visit [] Physician referral [] Code/Alert [x] Routine visit [] Staff referral [] Actively dying [] Patient sleeping [] Family support [] [] Out of room [] Palliative care [] [] Receiving care in room [] Pre-surgical visit [] Trauma [] Long length of stay [] ICU visit [] Other: Relational/Emotional Strength [x] Patient feels connected with others/family/visitors/staff [] Distress [] Loneliness/isolation [] Abandonment Spirituality of Patient [x] Person of Chichi [x] Attends Confucianist of their [place] [x] Believes in Prayer [x] Reads Bible or Buddhist materials [] There are Spiritual issues to be addressed Animal Trainer Supervisor Interventions [x] Prayer [x] Active listening [x] Non-anxious presence [x] Spiritual/emotional support [] Crisis/trauma care [x] Spiritual counseling [] Bereavement support [] Provided bereavement packet [] Provided Bible/devotional materials [] Provided toy/stuffed animal, coloring book to patient or family member [] Provided Communion [] Anointing/[place] [] Salvation [x] Completed spiritual assessment [] Other: Impact on Illness or Injury [] Angry [] Fearful [] Anxious [] Often cries [] Exhaustion [] Unable to work [] Unable to attend roman catholic [] Unable to walk/stand [] Unable to read [] Unable to drive [] Unable to eat/drink [] Unable to sleep [] Unable to be with family [] Patient intubated [] Other: Summary patient soore Time spent with patient 15 min
[2020-08-05 10:49] LABS: Anion Gap 11.1 (5-19); Blood Urea Nitrogen 15 mg/dL (8-23); Calcium 8.2 mg/dL (8.5-10.5); Carbon Dioxide 26 mmol/L (22-29); Chloride 103 mmol/L (98-107); Glomerular Filtration Rate 54.7 mL/min (90-130); Glucose 114 mg/dL (65-115); Osmolality Calculated 284 mOsm/kg (285-295); Potassium 4.1 mmol/L (3.5-5.1); Sodium 136 mmol/L (136-145)
[2020-08-05 11:34] VITALS: BP 131/71; PULSE 71; RESP 17; TEMP 36.7; O2SAT 94
--- NOTE | 2020-08-05 12:46 | PM.DCS ---
Discharge Providers Date of Admission: 08/04/20 16:20 Date of Discharge: August 05, 2020 Attending Provider at Admission: Noman Dick MD Attending Provider at Discharge: Noman Dick MD Primary Care Provider: Paige Aguilar MD Reason for Visit Reason for Visit: lap possible open excision abd mass, possible jeb Hospital Course Hospital Course This is a 69-year-old male who had previously undergone left nephrectomy for clear renal cell carcinoma last year. During routine surveillance CT abdomen pelvis he was noted to have a large 13 x 11 cm mass as well as central sclerosing mesenteritis. Patient underwent laparoscopic excision of abdominal mass yesterday. At time of discharge today he is tolerating a regular diet ambulating, his vital signs are stable and his pain is well controlled with oral pain medications. Physical Exam Narrative: EXAM NARRATIVE: Abdomen: Soft, nontender, nonrigid, incisions healing well Urinary Catheter Management^: Jaquez: Cath Placed During This Visit: yes, but has since been removed by the nurse Urinary Catheter Date of Insertion: 08/04/20 Urinary Catheter Time of Insertion: 14:15 Date Urinary Catheter Removed: 08/04/20 Time Urinary Catheter Discontinued: 16:05 Discharge Data Data Completed and Pending: Pending at discharge Category Date Time Status Basic Metabolic P eleazar AM LABS Lab 08/06/20 04:00 Uncollected Basic Metabolic P eleazar AM LABS Lab 08/07/20 04:00 Uncollected Complete Blood Co unt w/Auto AM LABS Lab 08/06/20 04:00 Uncollected Complete Blood Co unt w/Auto AM LABS Lab 08/07/20 04:00 Uncollected Pathology: Surgic al [PTH] Routine Pth 08/04/20 15:59 Received Labs from last 24 hours 08/05/20 08/05/20 10:20 10:20 WBC 13.4 H RBC 4.38 Hgb 13.2 Hct 40.2 L MCV 91.8 MCH 30.1 MCHC 32.8 RDW 12.3 Plt Count 201 MPV 10.8 H Neut % (Auto) 80.6 Lymph % (Auto) 9.0 [place] % (Auto) 9.6 Eos % (Auto) 0.3 Baso % (Auto) 0.3 Neut # (Auto) 10.78 H Lymph # (Auto) 1.2 [place] # (Auto) 1.3 H Eos # (Auto) 0.0 Baso # (Auto) 0.0 Nucleated RBC % (a uto) 0 Nucleated RBCs # 0.0 Sodium 136 Potassium 4.1 Chloride 103 Carbon Dioxide 26 Anion Gap 11.1 BUN 15 Creatinine 1.3 H GFR Calculation 54.7 L Glucose 114 Calculated Osmolal ity 284 L Calcium 8.2 L Vitals: Last Vital Signs Temp 98.1 F 08/05/20 11:34 Pulse 71 08/05/20 11:34 Resp 17 08/05/20 11:34 BP 131/71 08/05/20 11:34 Pulse Ox 94 08/05/20 11:34 Discharge Plan Discharge Patient Disposition: Home Condition: Stable Prescriptions: New hydrocodone-acetaminophen 5-325 mg tablet 1 tab PO Q6H PRN (Reason: pain) Qty: 20 RF: 0 ondansetron HCl [Zofran] 4 mg tablet 4 mg PO Q6H PRN (Reason: nausea and vomiting) Qty: 20 RF: 0 sennosides-docusate sodium [Senna with Docusate Sodium] 8.6-50 mg tablet 1 tab-cap PO BID Qty: 30 RF: 0 Continued omeprazole 40 mg capsule,delayed release(DR/EC) 40 mg PO DAILY RF: 0 rosuvastatin [Crestor] 5 mg Tablet 5 mg PO DAILY RF: 0 Discharge Orders: Discharge Order (Routine); Ordered 08/05/20 Ordered By: Noman Dick Referrals: Noman Dick MD [Physician] - 2 weeks Patient Instructions: Opioid Safety Activity Restrictions/Additional Instructions: Diet Advance to normal diet as tolerated, increase fluid intake as much as possible. Activity Avoid strenuous activity for 2 weeks but continue with daily activities including walking as tolerated. Do not lift more than 10 pounds for 2 weeks Return to work/school You can return to work/ school whenever you feel ready as long as you don?t have to lift more than 10 pounds at work. If you have paperwork that needs to be completed for time off from work, please contact my office Driving You can resume driving once you stop using narcotic pain medications, and transition to non-opioid pain medications like Tylenol, Motrin, Aleve, etc. Medications Pain Take opioid pain medications as prescribed and transition to non-opioid pain medications like Tylenol, Motrin, Aleve etc. over the next few days. The goal of the pain medications is to make the pain bearable and not to be pain free since you recently had surgery. Resume all home medications after surgery as per the medication reconciliation list Nausea Nausea is common after surgery, take nausea medications as needed and stay on a liquid bland diet until nausea resolves. Constipation The combination of surgery, anesthesia and pain medications can result in constipation. Take stool softeners as prescribed. If you do not have a bowel movement in 3 days, please take an msky-aun-wigudng laxative like MiraLAX to address the constipation. Shower It is ok to shower but avoid getting the wound wet for 48 hours after surgery. Do not soak in bathtub, swimming pool or hot tub for 2 weeks. Wound care If glue has been used on your incisions after surgery, the glue on the incision will peel slowly over the next two weeks. The stitches used are dissolvable and will not need to be removed. Do not apply antibiotics or other medications on the incision Problems with the wound: you can develop some redness around the incision from bruising after surgery. If there is increasing pain, redness, tenderness around the incision with or without drainage, please contact my office to rule out an infection. Sometimes the skin at the incisions can separate, resulting in reopening of the wound. Cover the wound with antibiotic cream and sterile dressings and contact my office. Contact physician Call the office at [phone] during office hours or go the Emergency Room ?Fever to 100.4 or greater ?Shaking chills ?Pain that increases over time ?Redness, warmth, or pus draining from incision sites ?Persistent nausea or inability to take in liquids Discharge Attestations Time Spent in Discharge Care*: less than 30 min Quality Metrics Clinical Quality Measures During this hospital stay, did patient experience: None Coding Level of Care Code Acute g STANISLAV note
--- NOTE | 2020-08-05 14:42 | PC.NURSE ---
discharge instructions given to patient and . both verbalized understanding of instructions. iv discontinued and covered with 2x2 and coban. patient taken to private vehicle via wheelchair by staff.
[2020-08-05 15:20] VITALS: BP 131/71; PULSE 71; RESP 17; TEMP 36.7; O2SAT 94
== END 2020-08-05 14:40 | disposition home or self-care (01) | DRG 357 ==
LOC: MEDSURG 16:22
PROVIDERS: Admitting Provider Surgery; PCP Family Medicine; Visit Provider Surgery
PROC: 0WBF4ZZ Excision of Abdominal Wall, Percutaneous Endoscopic Approach (ICD-10-PCS; CPT 49320; principal; 2020-08-04 12:15)
PROC: 0WBF4ZZ Excision of Abdominal Wall, Percutaneous Endoscopic Approach (ICD-10-PCS; 2020-08-04 12:15)
DX: R19.04 Left lower quadrant abdominal swelling, mass and lump (principal); K65.4 Sclerosing mesenteritis; Z85.528 Personal history of other malignant neoplasm of kidney; Z90.5 Acquired absence of kidney; M19.90 Unspecified osteoarthritis, unspecified site; N18.9 Chronic kidney disease, unspecified; K21.9 Gastro-esophageal reflux disease without esophagitis; Z87.442 Personal history of urinary calculi; Z87.891 Personal history of nicotine dependence; K66.0 Peritoneal adhesions (postprocedural) (postinfection)
CPT/HCPCS: 36415; 51702; 80048; 85025; 88305; 97161; 97530; C9290; J0690; J1100; J1170; J2270; J2405; J2704; J2710; J3010; J3490

== ENCOUNTER 2020-08-22 09:14 | Outpatient (CLI) | payer OTHER, SELFPAY ==
[2020-08-22 09:56] LABS: Basophils # 0.1 10^3/uL (0.0-0.1); Basophils % 1.1 %; Eosinophils # 0.4 10^3/uL (0.0-0.8); Eosinophils % 4.8 %; Hematocrit 43.3 % (42.0-52.0); Hemoglobin 14.3 g/dL (11.7-16.6); Lymphocytes # 1.6 10^3/uL (0.8-4.8); Lymphocytes % 21.9 %; Mean Corpuscular Hemoglobin 30.2 pg (28.0-34.0); Mean Corpuscular Volume 91.5 fL (80-94); Mean Platelet Volume 10.7 fL (7.4-10.4); Neutrophils # 4.39 10^3/uL (1.8-7.7); Neutrophils % 58.9 %; Nucleated Red Blood Cells % 0 %; Platelet Count 200 10^3/cmm (130-400); Red Blood Count 4.73 10^6/uL (4.1-5.3); Red Cell Distribution Width 12.2 % (12.1-15.1); White Blood Count 7.5 10^3/uL (4.0-10.0)
[2020-08-22 10:22] LABS: Albumin Level 4.1 g/dL (3.5-5.2); Anion Gap 14.3 (5-19); Blood Urea Nitrogen 16 mg/dL (8-23); Calcium 8.8 mg/dL (8.5-10.5); Carbon Dioxide 26 mmol/L (22-29); Chloride 103 mmol/L (98-107); Glomerular Filtration Rate 46.4 mL/min (90-130); Glucose 98 mg/dL (65-115); Phosphorus 2.4 mg/dL (2.5-4.5); Potassium 4.3 mmol/L (3.5-5.1); Sodium 139 mmol/L (136-145)
[2020-08-22 10:29] LABS: Parathyroid Hormone 54.7 pg/mL (15-65)
[2020-08-22 10:34] LABS: Creatinine Urine, Random 67 mg/dL (39-259)
[2020-08-22 10:36] LABS: Microalbum Creatinine Ratio Ur 15 mg/dL (0-20); Microalbumin Random Urine 1 ug/dL (0-20)
== END 2020-08-22 09:15 | disposition home or self-care (01) ==
LOC: LAB 09:23
PROVIDERS: PCP Family Medicine; Visit Provider Internal Medicine Nephrology
DX: N18.32 Chronic kidney disease, stage 3b (principal)
CPT/HCPCS: 36415; 80069; 82044; 82310; 83970; 85025

== ENCOUNTER → 2020-08-29 16:13 | Outpatient (BNVA) | payer OTHER, SELFPAY | PROVIDERS: PCP Family Medicine; Visit Provider Emergency Medicine | DX: Z20.822 Contact with and (suspected) exposure to COVID-19 (principal) | CPT/HCPCS: 87635 ==

== ENCOUNTER 2020-09-04 20:54 | Inpatient (IN) | payer OTHER, MEDICARE, SELFPAY ==
[2020-09-04 21:22] VITALS: BP 145/86; PULSE 101; RESP 24; TEMP 36.9; O2SAT 79; BMI 37.1
--- NOTE | 2020-09-04 21:25 | XRR_ITS ---
PROCEDURE INFORMATION: Exam: XR Chest Exam date and time: 09/04/2020 9:25 PM Age: 69 years old Clinical indication: Shortness of breath; Additional info: Hypoxia TECHNIQUE: Imaging protocol: XR of the chest. Views: 1 view. COMPARISON: CR XR chest 2V* [id number] 07/25/2020 8:38 AM FINDINGS: Lungs: There are peripheral interstitial opacities present bilaterally, findings that may represent a bilateral peripheral interstitial pneumonitis. Pleural spaces: Unremarkable. No pleural effusion. No pneumothorax. Heart/Mediastinum: Unremarkable. No cardiomegaly. Bones/joints: Unremarkable. XR/XR chest 1V portable [id number] IMPRESSION: Predominately peripheral interstitial opacities are seen bilaterally, findings suggesting a bilateral peripheral interstitial pneumonia.
[2020-09-04 21:48] LABS: ABG PCO2 28.5 mmHg (35-45); ABG PH Result 7.46 (7.35-7.45); Arterial Blood Gas Hematocrit 48.5 % (42-52); Base Excess ABG -2.1 mmol/L (-2.0-2.0); Blood Gas Allen Test Pos; Blood Gas Sample Site Radial, right; Blood Gas Sample Type Arterial; HCO3 ABG 20.3 mmol/L (22-26); Oxygen Device NC; PO2 ABG 57.2 mmHg (80.0-100.0)
--- NOTE | 2020-09-04 23:19 | PM.HP ---
Providers/Chief Complaint Admitting Physician: Markell Sigala Primary Care Provider: Paige Aguilar MD Chief Complaint: Low Oxygen COVID POS History of Present Illness 69-year-old male with past medical history significant for hyperlipidemia, clear cell carcinoma of left kidney status post nephrectomy, gastroesophageal reflux disease, abdominal lipoma status post resection on 08/04/2020, chronic kidney disease stage III with baseline creatinine around 1.5, who presented to the hospital with respiratory distress. This was associated with fever, chills, nausea however no emesis. Additionally, patient noted a nonproductive cough. He was seen for this by primary care physician in 08/29 during which time he was found to be COVID-19 PCR positive. Also noted poor appetite and generalized weakness. Denied chest pain. No diarrhea or constipation. Denied abdominal pain. Laboratory workup on arrival showed a WBC of 5.2, hemoglobin 16.3, hematocrit of 49.1 and platelet count of 128. D-dimer was elevated 2.91. Arterial blood gas showed a pH of 7.46, pCO2 of 28.5, PO2 of 57.2 and bicarb of 20.3. This was initially on 3 L O2. Sodium 131, potassium 4.1, chloride 93, bicarb 21, BUN 40 and creatinine of 2.1. AST of 181, ALT of 131, alkaline phosphatase is 67, total bilirubin 1.6. Creatinine phosphokinase was elevated at 1709. Troponin of 37. CRP of 83.2. ProBNP of 132. Procalcitonin of 0.26. Chest x-ray showed predominantly peripheral interstitial opacities bilaterally. Initial vital signs showed a temperature of 98.5?, blood pressure of 145/86, heart rate of 101, respiratory rate 24 with O2 saturation of 79%. In emergency room patient was given 50 100 cc bolus of NS, Decadron 10 mg, DuoNeb treatment. Review of Systems General: Reports: 10 or more systems reviewed and unremarkable except in HPI and below Medications/Allergies Home Medications Medication Instructions Recorded Confirmed Last Taken Type rosuvastatin [Crestor] 5 mg PO DAILY 04/17/20 08/29/20 08/03/20 History omeprazole 40 mg capsule,delayed 40 mg PO DAILY 07/16/20 08/29/20 08/03/20 History release Allergies Allergy/AdvReac Type Severity Reaction Status Date / Time No Known Allergies Allergy Verified 08/29/20 14:43 PFSH Acute PFSH: Medical History Abdominal lipoma Arthritis Chronic kidney disease Clear cell carcinoma of left kidney GERD (gastroesophageal reflux disease) Renal calculi Urolithiasis Surgical History H/O laparoscopy (~08/04/20) excision of abdominal wall mas H/O left nephrectomy History of colonoscopy 2019 History of thyroid surgery Family History Mother Cancer Father No problems noted. Social History Smoking and tobacco status: never smoked Alcohol intake: never Marital status: Current occupational status: retired History of recent travel: No Vitals/I&O/Wt Last Vital Signs Temp 98.5 F 09/04/20 21:22 Pulse 90 09/04/20 23:44 Resp 27 H 09/04/20 23:44 BP 149/87 09/04/20 23:44 Pulse Ox 89 L 09/04/20 23:44 09/04/20 09/04/20 09/05/20 14:59 22:59 06:59 Intake Total 500 / 500 Balance 500 / 500 Weight last 48 hrs Weight 104.326 kg Physical Exam Narrative: EXAM NARRATIVE: General- alert of an acute oriented x3 HEENT- grossly unremarkable CVS- regular rate rhythm Chest- mild labored respiration, tachypnea Abdomen- nondistended Extremities-no edema Data : 09/04/20 23:20 09/04/20 23:20 A&P Assessment and plan (1) Acute hypoxemic respiratory failure due to COVID-19: Respiratory rate up to 33, PO2 57.2, labored respiration and hypoxic supplemental oxygen as needed - likely transition to heated high-flow Maintain oxygen saturation above 90% Chest x-ray- bilateral interstitial infiltrates DuoNeb treatments q.6 hours Decadron 6 mg IV daily times 10 days Hold Remdesivir due to Transaminitis Pro-june negative - Monitor off abx Consider pulmonary consult Status: Acute (2) Acute worsening of stage 3 chronic kidney disease: Ericka pre-renal in setting of CKD and Acute Rhabdo Baseline creatinine 1.3-1.5 Currently 2.1 Renal dosing of medications Cautious fluid hydration NS at 50 cc/hour Monitor urine output Repeat BMP in a.m. Status: Acute (3) Rhabdomyolysis: CPK 1709 Conscious fluid hydration Monitor urine output Repeat CPK in am Status: Acute (4) Transaminitis: AST 181 ALT 131 Total Bili- 1.6 Repeat LFT in am Possible due to rhabdo May consider right upper quadrant ultrasound Status: Acute (5) History of renal cell carcinoma: Status post left nephrectomy Status: Acute (6) GERD (gastroesophageal reflux disease): Protonix 40 mg oral daily Status: Acute Qualifiers: Esophagitis presence: esophagitis presence not specified Qualified Code(s): K21.9 - Gastro-esophageal reflux disease without esophagitis Attestations Medical Necessity Statement*: Anticipate over 2 midnights stay in hospital for evaluation and treatment of acute hypoxic respiratory failure due to COVID-19 pneumonia, renal failure and rhabdomyolysis Time Spent in Patient Care: Greater than 35 minutes (>than 50% of time spent in counselling and/or direct pt care on unit). Coding Level of Care Code Acute Respiratory Therapist Assistant for [facility] Diagnoses Acute hypoxemic respiratory failure due to COVID-19 U07.1; J96.01 Acute worsening of stage 3 chronic kidney disease N18.30 Rhabdomyolysis M62.82 Transaminitis R74.01 History of renal cell carcinoma Z85.528 GERD (gastroesophageal reflux disease) K21.9 Esophagitis presence: esophagitis presence not specified
--- NOTE | 2020-09-04 23:24 | W.ED.COVID ---
HPI - COVID General: Chief Complaint: COVID symptoms Stated Complaint: Low Oxygen COVID POS Time Seen by Provider: 09/04/20 23:20 Triage information: Has fever, cough or shortness of breath. Exposure to COVID + person last 14 days History of Present Illness: HPI Narrative: This patient is a 69-year-old male who presents to the emergency department with a history of recent Covid infection for the past 2 weeks. Patient also states he has a touch of COPD. Patient states that he this has been getting worse and just feels like he can't catch his breath. Pulse ox at arrival was 79. Patient is on 3 L by nasal cannula now is 88. We'll have respiratory evaluation done on the patient will evaluate and treat further as needed. MD complaint: known COVID positive COVID 19 common symptoms: positive fever(s), dyspnea and fatigue; negative chills, non-productive cough, productive cough, body aches, headache(s), throat pain, nausea or vomiting COVID 19 other sytmptoms: negative chest pain COVID Results: SARS-CoV-2 RNA (RT-PCR) Detected (NOT DETECTED) A 08/29/20 16:13 08/29/20 Nasal/Oral Coronavirus 2019 PCR Not detected 07/30/20 10:04 07/30/20 Review of Systems General: Reports: 10 or more systems reviewed and unremarkable except in HPI and below Const: Reports: fever(s) and fatigue; Denies: chills or body aches Eyes: Denies: change in vision or blurry vision ENMT: Denies: throat pain, hoarseness or mouth pain Card: Denies: chest pain, palpitations, irregular heart rhythm, edema, swelling of feet/ankles or lightheadedness Resp: Reports: dyspnea; Denies: productive cough, non-productive cough, wheezing or pain on inspiration GI: Denies: abdominal pain, nausea or vomiting : Denies: flank pain, dysuria, urinary frequency, urinary urgency or urinary hesitancy Musc: Denies: neck pain, back pain, extremity pain, extremity swelling, joint pain, joint swelling, joint redness, joint warmth or limited range of motion Skin/Breast: Denies: rash, pruritus, erythema or skin tenderness Neuro: Denies: headache(s), numbness in extremities or weakness in extremities Psych: Denies: anxiety or depression PFSH ED PFSH: Medical History Abdominal lipoma Arthritis Chronic kidney disease Clear cell carcinoma of left kidney GERD (gastroesophageal reflux disease) Renal calculi Urolithiasis Surgical History H/O laparoscopy (~08/04/20) excision of abdominal wall mas H/O left nephrectomy History of colonoscopy 2019 History of thyroid surgery Family History Mother Cancer Father No problems noted. Social History Smoking and tobacco status: never smoked Alcohol intake: never Marital status: Current occupational status: retired History of recent travel: No Physical Exam Const: COMMON NORMALS: no acute distress, average body habitus, patient oriented x3, no limitations, healthy appearing, alert and well nourished HENMT: COMMON NORMALS: normocephalic, atraumatic, hearing grossly normal bilaterally, external ears normal, EAC's normal, TM's normal bilaterally, Normal external nose present, Normal nasal mucous membranes and turbinates present, moist oral mucous membranes, oropharynx normal, dentition normal and gingiva normal HEAD & SCALP: normocephalic and atraumatic NOSE: Normal external nose present and Normal nasal mucous membranes and turbinates present EXTERNAL EAR: Yes external ears normal EXTERNAL AUDITORY CANAL: EAC's normal TYMPANIC MEMBRANE: TM's normal bilaterally Neck/C-Spine: COMMON NORMALS: full ROM, no lymphadenopathy, supple, no meningeal signs, no JVD, Thyroid normal and No carotid bruits THYROID: Thyroid normal Chest: COMMONS NORMALS: normal inspection of the chest, normal palpation of entire chest wall, normal inspection of the breasts and normal palpation of the breasts Breast/axilla inspection: Yes normal inspection of the breasts BREAST/AXILLA PALPATION: Yes normal palpation of the breasts Resp: COMMON NORMALS: normal respiratory effort, No retractions, No use of accessory muscles, clear to auscultation bilaterally and percussion normal AUSCULTATION: clear to auscultation bilaterally PERCUSSION: percussion normal Cardio: COMMON NORMALS: no JVD, regular rate, regular rhythm, S1 normal heart sound present, S2 normal heart sound present, No gallops present (Cardio), No clicks present (Cardio), No murmurs present (Cardio), No rub (Cardio) and Peripheral pulses 2+ throughout RATE: regular rate RHYTHM: regular rhythm HEART SOUNDS: S1 normal heart sound present and S2 normal heart sound present PERIPHERAL PULSES: Peripheral pulses 2+ throughout GI: COMMON NORMALS: Normal to inspection, nondistended, normoactive bowel sounds present, Soft to palpation, non-tender, No hepatosplenomegaly present, no masses and no bruits PALPATION: Yes Soft to palpation and Yes No hepatosplenomegaly present : COMMON NORMALS: Yes no CVA tenderness BLADDER/KIDNEY EXAM: Yes no CVA tenderness Back/Pelvis: COMMON NORMALS: no CVA tenderness, thoracic and lumbar spine normal to inspection, no thoracic nor lumbar tenderness, thoraco-lumbar ROM normal and straight leg raise negative bilaterally Extremity: COMMON NORMALS: normal to inspection, full ROM, capillary refill normal, no joint enlargement, no clubbing, cyanosis or edema, no calf tenderness and no pedal edema Neuro: COMMON NORMALS: patient oriented x3 SENSORIUM/ORIENTATION: Yes alert MENINGEAL SIGNS: Yes no meningeal signs Course Consultations: Consultation #1: I did discuss at length with Dr. Sigala he is agreed admit the patient to the hospital for further evaluation and treatment. He will see patient write additional orders Time: 00:01 Vital Signs: Vital signs: Vital Signs Temperature 98.5 F 09/04/20 21:22 Pulse Rate 90 09/04/20 23:44 Respiratory Rate 27 H 09/04/20 23:44 Blood Pressure 149/87 09/04/20 23:44 Pulse Oximetry 89 L 09/04/20 23:44 MDM - COVID MDM Narrative: Medical decision making narrative: This patient is a 69-year-old male who presents to the emergency department with a history of recent Covid infection for the past 2 weeks. Patient also states he has a touch of COPD. Patient states that he this has been getting worse and just feels like he can't catch his breath. Pulse ox at arrival was 79. Patient is on 3 L by nasal cannula now is 88. We'll have respiratory evaluation done on the patient will evaluate and treat further as needed. I did discuss at length with Dr. Sigala he is agreed admit the patient to the hospital for further evaluation and treatment. He will see patient write additional orders Differential Diagnosis: Differential diagnosis: Likely COVID 19 and other viral infection Medical Records: Attestation: I reviewed the patient's medical records. Lab Data: Attestation: I reviewed the patient's lab results. Labs: Lab Results 09/04/20 09/04/20 09/04/20 Range/Units 21:40 23:20 23:20 WBC 5.2 (4.0-10.0) 10^3/ uL RBC 5.52 H (4.1-5.3) 10^6/u L Hgb 16.3 (11.7-16.6) g/dL Hct 49.1 (42.0-52.0) % MCV 88.9 (80-94) fL MCH 29.5 (28.0-34.0) pg MCHC 33.2 (30.0-36.0) g/dL RDW 12.8 (12.1-15.1) % Plt Count 128 L (130-400) 10^3/c mm MPV 11.3 H (7.4-10.4) fL Neut % (Auto) 76.2 % Lymph % (Auto) 11.6 % [place] % (Auto) 11.6 % Eos % (Auto) 0.0 % Baso % (Auto) 0.2 % Neut # (Auto) 3.95 (1.8-7.7) 10^3/u L Lymph # (Auto) 0.6 L (0.8-4.8) 10^3/u L [place] # (Auto) 0.6 (0.2-0.9) 10^3/u L Eos # (Auto) 0.0 (0.0-0.8) 10^3/u L Baso # (Auto) 0.0 (0.0-0.1) 10^3/u L Nucleated RBC % (a uto) 0 % Nucleated RBCs # 0.0 /100WBC PT 13.40 (12.1-14.9) SECO NDS INR 0.99 (0.8-1.2) APTT 27.4 (23.9-36.7) SECO NDS Fibrinogen 583 H (174-498) mg/dL D-Dimer 2.91 H (0-0.59) ug/mIFE U Specimen Type Arterial Sample Site Radial, right ABG pH 7.46 H (7.35-7.45) ABG pCO2 28.5 L (35-45) mmHg ABG pO2 57.2 L (80.0-100.0) mmH g ABG HCO3 20.3 L (22-26) mmol/L ABG Base Excess -2.1 L (-2.0-2.0) mmol/ L Albino Test Pos Hematocrit 48.5 (42-52) % O2 Delivery Device Nc O2 Liters/Min 3.0 % Process Control Tech ID Hinja Sodium (136-145) mmol/L Potassium (3.5-5.1) mmol/L Chloride (98-107) mmol/L Carbon Dioxide (22-29) mmol/L Anion Gap (5-19) BUN (8-23) mg/dL Creatinine (0.7-1.2) mg/dL GFR Calculation (90-130) mL/min Glucose (65-115) mg/dL Calculated Osmolal ity (285-295) mOsm/k g Lactic Acid (0.5-2.2) mmol/L Calcium (8.5-10.5) mg/dL Total Bilirubin (0.15-1.2) mg/dL AST (0-40) U/L ALT (0-41) U/L Alkaline Phosphata se (40-130) IU/L Creatine Kinase (39-308) U/L Troponin T Gen 5 n g/L (0-15) ng/L C-Reactive Protein (0.0-4.9) mg/L NT-Pro-B Natriuret Pep (0-125) pg/mL Total Protein (6.6-8.7) g/dL Albumin (3.5-5.2) g/dL Globulin (1.3-4.6) g/dL Procalcitonin (0-0.5) ng/mL 09/04/20 09/04/20 09/04/20 Range/Units 23:20 23:20 23:20 WBC (4.0-10.0) 10^3/ uL RBC (4.1-5.3) 10^6/u L Hgb (11.7-16.6) g/dL Hct (42.0-52.0) % MCV (80-94) fL MCH (28.0-34.0) pg MCHC (30.0-36.0) g/dL RDW (12.1-15.1) % Plt Count (130-400) 10^3/c mm MPV (7.4-10.4) fL Neut % (Auto) % Lymph % (Auto) % [place] % (Auto) % Eos % (Auto) % Baso % (Auto) % Neut # (Auto) (1.8-7.7) 10^3/u L Lymph # (Auto) (0.8-4.8) 10^3/u L [place] # (Auto) (0.2-0.9) 10^3/u L Eos # (Auto) (0.0-0.8) 10^3/u L Baso # (Auto) (0.0-0.1) 10^3/u L Nucleated RBC % (a uto) % Nucleated RBCs # /100WBC PT (12.1-14.9) SECO NDS INR (0.8-1.2) APTT (23.9-36.7) SECO NDS Fibrinogen (174-498) mg/dL D-Dimer (0-0.59) ug/mIFE U Specimen Type Sample Site ABG pH (7.35-7.45) ABG pCO2 (35-45) mmHg ABG pO2 (80.0-100.0) mmH g ABG HCO3 (22-26) mmol/L ABG Base Excess (-2.0-2.0) mmol/ L Albino Test Hematocrit (42-52) % O2 Delivery Device O2 Liters/Min % Process Control Tech ID Sodium 131 L (136-145) mmol/L Potassium 4.1 (3.5-5.1) mmol/L Chloride 93 L (98-107) mmol/L Carbon Dioxide 21 L (22-29) mmol/L Anion Gap 21.1 H (5-19) BUN 40 H (8-23) mg/dL Creatinine 2.1 H (0.7-1.2) mg/dL GFR Calculation 31.5 L (90-130) mL/min Glucose 112 (65-115) mg/dL Calculated Osmolal ity 283 L (285-295) mOsm/k g Lactic Acid 1.5 (0.5-2.2) mmol/L Calcium 8.6 (8.5-10.5) mg/dL Total Bilirubin 1.6 H (0.15-1.2) mg/dL AST 181 H (0-40) U/L ALT 131 H (0-41) U/L Alkaline Phosphata se 67 (40-130) IU/L Creatine Kinase 1709 H* (39-308) U/L Troponin T Gen 5 n g/L 37 H (0-15) ng/L C-Reactive Protein 83.2 H (0.0-4.9) mg/L NT-Pro-B Natriuret Pep 132 H (0-125) pg/mL Total Protein 7.5 (6.6-8.7) g/dL Albumin 4.3 (3.5-5.2) g/dL Globulin 3.2 (1.3-4.6) g/dL Procalcitonin 0.26 (0-0.5) ng/mL Imaging Data: CXR: Attestation: I personally reviewed and interpreted this imaging study as follows: Radiologist's impression: FINDINGS: Lungs: There are peripheral interstitial opacities present bilaterally, findings that may represent a bilateral peripheral interstitial pneumonitis. Pleural spaces: Unremarkable. No pleural effusion. No pneumothorax. Heart/Mediastinum: Unremarkable. No cardiomegaly. Bones/joints: Unremarkable. XR/XR chest 1V portable [id number] IMPRESSION: Predominately peripheral interstitial opacities are seen bilaterally, findings suggesting a bilateral peripheral interstitial pneumonia. COVID Results: SARS-CoV-2 RNA (RT-PCR) Detected (NOT DETECTED) A 08/29/20 16:13 08/29/20 Nasal/Oral Coronavirus 2019 PCR Not detected 07/30/20 10:04 07/30/20 Discharge Plan Discharge Patient Disposition: Admitted As Inpatient Admit Provider: Markell Sigala Clinical Impression: Suspected severe acute respiratory syndrome coronavirus 2 (SARS-CoV-2) infection, Upper respiratory infection, Acute exacerbation of chronic obstructive pulmonary disease, Rhabdomyolysis, Acute renal failure Condition: Stable Coding Level of Care Code ED Grocery Clerk Selling for g Fwd Exam Comprehensive
[2020-09-04] MEDS: sodium chloride 0.9% 500 ML IV (23:37)
[2020-09-04] MEDS: dexamethasone 10 mg/mL INJ IV (23:37)
[2020-09-04 23:44] VITALS: BP 149/87; PULSE 90; RESP 27; O2SAT 88; O2SAT 89
[2020-09-04 23:45] VITALS: PULSE 95; RESP 22; O2SAT 88
[2020-09-04] MEDS: albuterol 8 gm MDI 2 PUFF INHALATION (23:45)
[2020-09-04 23:47] LABS: Basophils % 0.2 %; Hematocrit 49.1 % (42.0-52.0); Hemoglobin 16.3 g/dL (11.7-16.6); Lymphocytes # 0.6 10^3/uL (0.8-4.8); Lymphocytes % 11.6 %; Mean Corpuscular HGB Conc 33.2 g/dL (30.0-36.0); Mean Corpuscular Hemoglobin 29.5 pg (28.0-34.0); Mean Corpuscular Volume 88.9 fL (80-94); Mean Platelet Volume 11.3 fL (7.4-10.4); Monocytes # 0.6 10^3/uL (0.2-0.9); Monocytes % 11.6 %; Neutrophils # 3.95 10^3/uL (1.8-7.7); Neutrophils % 76.2 %; Nucleated Red Blood Cells % 0 %; Platelet Count 128 10^3/cmm (130-400); Red Blood Count 5.52 10^6/uL (4.1-5.3); Red Cell Distribution Width 12.8 % (12.1-15.1); White Blood Count 5.2 10^3/uL (4.0-10.0)
[2020-09-04 23:50] VITALS: PULSE 93; O2SAT 92
[2020-09-04 23:59] LABS: INR 0.99 (0.8-1.2)
[2020-09-05] VITALS (20 sets, daily range): BP systolic 112–142; BP diastolic 63–87; PULSE 67–93; RESP 16–33; TEMP 36.5–37.1; O2SAT 88–94
[2020-09-05] LABS: Fibrinogen 583 mg/dL (174-498); Partial Thromboplastin Time 27.4 SECONDS (23.9-36.7)
[2020-09-05 00:03] LABS: D Dimer 2.91 ug/mIFEU (0-0.59); Troponin T (5th) Once 37 ng/L (0-15)
[2020-09-05 00:07] LABS: Lactic Sepsis W/Reflex 1.5 mmol/L (0.5-2.2)
[2020-09-05 00:13] LABS: NT Pro B Type Natriuretic Pept 132 pg/mL (0-125); Procalcitonin 0.26 ng/mL (0-0.5)
[2020-09-05 00:24] LABS: Alanine Aminotransferase 131 U/L (0-41); Albumin Level 4.3 g/dL (3.5-5.2); Alkaline Phosphatase 67 IU/L (40-130); Anion Gap 21.1 (5-19); Aspartate Amino Transferase 181 U/L (0-40); Blood Urea Nitrogen 40 mg/dL (8-23); C Reactive Protein 83.2 mg/L (0.0-4.9); Calcium 8.6 mg/dL (8.5-10.5); Carbon Dioxide 21 mmol/L (22-29); Chloride 93 mmol/L (98-107); Globulin 3.2 g/dL (1.3-4.6); Glomerular Filtration Rate 31.5 mL/min (90-130); Glucose 112 mg/dL (65-115); Osmolality Calculated 283 mOsm/kg (285-295); Potassium 4.1 mmol/L (3.5-5.1); Sodium 131 mmol/L (136-145); Total Bilirubin 1.6 mg/dL (0.15-1.2); Total Protein 7.5 g/dL (6.6-8.7)
[2020-09-05 00:44] LABS: Creatine Phosphokinase 1709 U/L (39-308)
[2020-09-05] MEDS: sodium chloride 0.9% 1,000 ML 999 ML IV (00:59)
[2020-09-05] MEDS: dexamethasone 4 mg/mL INJ 6 MG IVP (02:41)
[2020-09-05] MEDS: sodium chloride 0.9% 1,000 ML 50 ML IV ×2 (02:41→22:46)
[2020-09-05] MEDS: heparin 5,000 unit/mL INJ 1 mL 5000 UNIT SUBCUT ×3 (02:42→17:47)
[2020-09-05 02:54] LABS: Ferritin 3059 ng/mL (30-400)
[2020-09-05] MEDS: pantoprazole DR 40 mg Tablet PO (08:26)
[2020-09-05] MEDS: atorvastatin 40 mg Tablet 20 MG PO (08:26)
--- NOTE | 2020-09-05 11:15 | P.PN_ITS ---
Vitals/I&O/Wt Last Vital Signs Temp 97.7 F 09/05/20 08:00 Pulse 85 09/05/20 08:00 Resp 24 H 09/05/20 08:00 BP 132/87 09/05/20 08:00 Pulse Ox 89 L 09/05/20 08:00 09/04/20 09/05/20 09/05/20 22:59 06:59 14:59 Intake Total 1674 / 1674 Balance 1674 / 1674 Weight last 48 hrs Weight 101.922 kg Weight 104.326 kg Data : 09/05/20 09:59 09/05/20 09:59 A&P Assessment and plan (1) Acute hypoxemic respiratory failure due to COVID-19: Acute hypoxic respiratory failure secondary to Covid pneumonia: X-ray chest:bilateral interstitial infiltrates ESR CRP D-dimer Ferritin Fibrinogen Monitor ABG Advair inhaler Budesonide inhaler Albuterol inhaler Robitussin Tessalon Perles Decadron 6 mg IV daily for 10 days Remdesivir for 5 days. Heparin 5000 subcu every 12 hours daily Monitor respiratory function for Tocilizumab use. Status: Acute (2) Acute worsening of stage 3 chronic kidney disease: Ericka pre-renal in setting of CKD and Acute Rhabdo Baseline creatinine 1.3-1.5 Currently 2.1 Renal dosing of medications Cautious fluid hydration NS at 50 cc/hour Monitor urine output Repeat BMP in a.m. Status: Acute (3) Rhabdomyolysis: CPK 1709 Conscious fluid hydration Monitor urine output Repeat CPK in am Status: Acute (4) Transaminitis: AST 181 ALT 131 Total Bili- 1.6 Repeat LFT in am Possible due to rhabdo May consider right upper quadrant ultrasound Status: Acute (5) History of renal cell carcinoma: Status post left nephrectomy Status: Acute (6) GERD (gastroesophageal reflux disease): Protonix 40 mg oral daily Status: Acute Qualifiers: Esophagitis presence: esophagitis presence not specified Qualified Code(s): K21.9 - Gastro-esophageal reflux disease without esophagitis Attestations Medical Necessity Statement*: Patient needs to be in the hospital for management of respiratory failure secondary to Covid pneumonia Coding Level of Care Code Acute 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
[2020-09-05 11:26] LABS: Hematocrit 43.4 % (42.0-52.0); Hemoglobin 14.3 g/dL (11.7-16.6); Lymphocytes # 0.5 10^3/uL (0.8-4.8); Mean Corpuscular HGB Conc 32.9 g/dL (30.0-36.0); Mean Corpuscular Hemoglobin 29.6 pg (28.0-34.0); Mean Corpuscular Volume 89.9 fL (80-94); Mean Platelet Volume 12.1 fL (7.4-10.4); Monocytes # 0.1 10^3/uL (0.2-0.9); Monocytes % 4.8 %; Neutrophils # 1.92 10^3/uL (1.8-7.7); Neutrophils % 76.8 %; Nucleated Red Blood Cells % 0 %; Platelet Count 126 10^3/cmm (130-400); Red Blood Count 4.83 10^6/uL (4.1-5.3); White Blood Count 2.5 10^3/uL (4.0-10.0)
[2020-09-05 11:43] LABS: Alanine Aminotransferase 105 U/L (0-41); Albumin Level 3.4 g/dL (3.5-5.2); Alkaline Phosphatase 57 IU/L (40-130); Anion Gap 19.1 (5-19); Aspartate Amino Transferase 132 U/L (0-40); Blood Urea Nitrogen 38 mg/dL (8-23); Carbon Dioxide 20 mmol/L (22-29); Chloride 100 mmol/L (98-107); Globulin 3.6 g/dL (1.3-4.6); Glomerular Filtration Rate 37.6 mL/min (90-130); Glucose 168 mg/dL (65-115); Osmolality Calculated 293 mOsm/kg (285-295); Potassium 4.1 mmol/L (3.5-5.1); Sodium 135 mmol/L (136-145); Total Bilirubin 1.1 mg/dL (0.15-1.2)
[2020-09-05 11:48] LABS: Creatine Phosphokinase 1188 U/L (39-308)
[2020-09-05] MEDS: remdesivir 200 MG in sodium chloride 0.9% (100 ml) 100 ML 100 MG IV (12:01)
[2020-09-05] MEDS: cefTRIAXone 1,000 MG in sodium chloride 0.9% (plus) 50 ML 100 MG IV (14:26)
[2020-09-05] MEDS: albuterol 8 gm MDI 2 PUFF INHALATION ×2 (17:35→21:47)
[2020-09-05] MEDS: tocilizumab 800 MG in sodium chloride 0.9% (100 ml) 100 ML 100 MG IV (20:20)
[2020-09-05] MEDS: budesonide 0.5 mg/2 mL Neb INHALATION (21:47)
[2020-09-06] VITALS (19 sets, daily range): BP systolic 115–143; BP diastolic 70–94; PULSE 73–100; RESP 20–33; TEMP 36.3–37.2; O2SAT 87–96
[2020-09-06] MEDS: heparin 5,000 unit/mL INJ 1 mL 5000 UNIT SUBCUT ×3 (00:49→16:37)
[2020-09-06] MEDS: dexamethasone 4 mg/mL INJ 6 MG IVP (00:49)
[2020-09-06] MEDS: remdesivir 100 MG in sodium chloride 0.9% (100 ml) 100 ML IV (05:16)
[2020-09-06 05:45] LABS: Hematocrit 41.9 % (42.0-52.0); Lymphocytes # 0.5 10^3/uL (0.8-4.8); Lymphocytes % 9.8 %; Mean Corpuscular HGB Conc 33.4 g/dL (30.0-36.0); Mean Corpuscular Hemoglobin 29.9 pg (28.0-34.0); Mean Corpuscular Volume 89.5 fL (80-94); Mean Platelet Volume 11.8 fL (7.4-10.4); Monocytes # 0.4 10^3/uL (0.2-0.9); Monocytes % 8.4 %; Neutrophils # 3.95 10^3/uL (1.8-7.7); Nucleated Red Blood Cells % 0 %; Platelet Count 136 10^3/cmm (130-400); Red Blood Count 4.68 10^6/uL (4.1-5.3); Red Cell Distribution Width 13.1 % (12.1-15.1); White Blood Count 4.9 10^3/uL (4.0-10.0)
[2020-09-06 06:18] LABS: D Dimer 1.58 ug/mIFEU (0-0.59)
[2020-09-06 06:32] LABS: Alanine Aminotransferase 99 U/L (0-41); Albumin Level 3.2 g/dL (3.5-5.2); Alkaline Phosphatase 58 IU/L (40-130); Anion Gap 17.4 (5-19); Aspartate Amino Transferase 123 U/L (0-40); Blood Urea Nitrogen 33 mg/dL (8-23); Calcium 7.9 mg/dL (8.5-10.5); Carbon Dioxide 19 mmol/L (22-29); Chloride 105 mmol/L (98-107); Globulin 3.1 g/dL (1.3-4.6); Glomerular Filtration Rate 50.2 mL/min (90-130); Glucose 136 mg/dL (65-115); Osmolality Calculated 293 mOsm/kg (285-295); Potassium 4.4 mmol/L (3.5-5.1); Sodium 137 mmol/L (136-145); Total Bilirubin 0.7 mg/dL (0.15-1.2); Total Protein 6.3 g/dL (6.6-8.7)
[2020-09-06] MEDS: albuterol 8 gm MDI 2 PUFF INHALATION ×3 (08:08→20:40)
[2020-09-06 08:49] LABS: Erythrocyte Sedimentation Rate 43 mm/hr (0-10)
[2020-09-06] MEDS: atorvastatin 40 mg Tablet 20 MG PO (08:55)
[2020-09-06] MEDS: benzonatate 100 mg Capsule PO (08:55)
[2020-09-06] MEDS: pantoprazole DR 40 mg Tablet PO (08:55)
[2020-09-06 09:42] LABS: Fibrinogen 469 mg/dL (174-498)
[2020-09-06 11:15] LABS: Creatine Phosphokinase 713 U/L (39-308)
[2020-09-06 11:40] LABS: Ferritin 3106 ng/mL (30-400)
[2020-09-06] MEDS: cefTRIAXone 1,000 MG in sodium chloride 0.9% (plus) 50 ML 100 MG IV (11:51)
--- NOTE | 2020-09-06 14:36 | P.PN_ITS ---
Subjective Subjective: Interval history: Patient was seen and examined this morning, worsening respiratory status as well as interval worsening of chest xray. Suplemental oxygen requirement have gone up,needing 100 % fio2 through [facility]. Medications: Reviewed: Yes Vitals/I&O/Wt Last Vital Signs Temp 97.4 F L 09/06/20 08:00 Pulse 100 09/06/20 12:07 Resp 24 H 09/06/20 12:07 BP 136/82 09/06/20 08:00 Pulse Ox 93 09/06/20 12:07 09/05/20 09/06/20 09/06/20 22:59 06:59 14:59 Intake Total 1140 / 2020 100 / 2120 410 / 410 Output Total 400 / 400 Balance 740 / 1620 100 / 1720 410 / 410 Weight last 48 hrs Weight 101.922 kg Weight 104.326 kg Data : 09/06/20 04:26 09/06/20 04:26 A&P Assessment and plan (1) Acute hypoxemic respiratory failure due to COVID-19: Acute hypoxic respiratory failure secondary to Covid pneumonia: X-ray chest:bilateral interstitial infiltrates ESR: 43 CRP:46 D-dimer: 1.58 Ferritin:3106 Fibrinogen: 469 Monitor ABG Advair inhaler Budesonide inhaler Albuterol inhaler Robitussin Tessalon Perles Decadron 6 mg IV daily for 10 days Remdesivir for 5 days. S/P 1 Dose of Tocilizumab On Lovenox 100 mg q12 h daily On VAn and zosyn Status: Acute (2) Acute worsening of stage 3 chronic kidney disease: Ericka pre-renal in setting of CKD and Acute Rhabdo Baseline creatinine 1.3-1.5 Currently 1.4 Renal dosing of medications Initially on fluid hydration Monitor urine output Repeat BMP in a.m. Status: Acute (3) Rhabdomyolysis: CPK 1709 Conscious fluid hydration Monitor urine output Repeat CPK in am Status: Acute (4) Transaminitis: AST 181 ALT 131 Total Bili- 1.6 Repeat LFT in am Possible due to rhabdo May consider right upper quadrant ultrasound Status: Acute (5) History of renal cell carcinoma: Status post left nephrectomy Status: Acute (6) GERD (gastroesophageal reflux disease): Protonix 40 mg oral daily Status: Acute Qualifiers: Esophagitis presence: esophagitis presence not specified Qualified Code(s): K21.9 - Gastro-esophageal reflux disease without esophagitis Attestations Medical Necessity Statement*: Patient needs to be in hospital for the management of respiratory failure. Coding Level of Care Code Acute Development Educator for Chg Fwd Diagnoses Acute hypoxemic respiratory failure due to COVID-19 U07.1; J96.01 Acute worsening of stage 3 chronic kidney disease N18.30 Rhabdomyolysis M62.82 Transaminitis R74.01 History of renal cell carcinoma Z85.528 GERD (gastroesophageal reflux disease) K21.9 Esophagitis presence: esophagitis presence not specified
--- NOTE | 2020-09-06 14:43 | PC.NURSE ---
Instructed by physician to place azevedo catheter and give lasix IVP. Charge nurse RN will push lasix IV. Azevedo catheter has been inserted with no difficulties.
[2020-09-06] MEDS: FUROsemide 10 mg/mL SDV 4mL 40 MG IVP (14:57)
--- NOTE | 2020-09-06 16:13 | XRR_ITS ---
PROCEDURE INFORMATION: Exam: XR Chest Exam date and time: 09/06/2020 4:13 PM Age: 69 years old Clinical indication: Condition or disease; Lung condition and disease; Pneumonia; Viral; Additional info: Worseing covid pna TECHNIQUE: Imaging protocol: XR of the chest. Views: 1 view. COMPARISON: CR (CHEST, ) 09/04/2020 11:22 PM FINDINGS: Lungs: Interval worsening of bilateral airspace opacities. Pleural spaces: Unremarkable. No pleural effusion. No pneumothorax. Heart/Mediastinum: Stable cardiomediastinal silhouette. Bones/joints: Degenerative changes of the spine seen. XR/XR chest 1V portable [id number] IMPRESSION: Interval worsening of bilateral airspace opacities.
--- NOTE | 2020-09-06 17:07 | PC.NURSE ---
Report called to [facility]. Pt has been transferred to the unit from [facility]
[2020-09-06] MEDS: enoxaparin 100 mg/mL Syringe SUBCUT (19:53)
[2020-09-06] MEDS: vancomycin 750 MG in sodium chloride 0.9% 250 ML 250 MG IV (20:19)
[2020-09-06] MEDS: piperacillin-tazobactam 3.375 GM in sodium chloride 0.9% (plus) 50 ML IV (21:21)
--- NOTE | 2020-09-06 21:26 | PC.PHAR ---
Vancomycin is dosed at 750mg IVPB every 12 hours to produce a predicted trough level of 16.38 (population based pharmacokinetic analysis). A trough level has been ordered from the lab to be obtained before the fourth dose to confirm and adjust if needed. The Zosyn is dosed at 3.375gm IVPB every 8 hours on the basis of the creatinine clearance of 55.68.
[2020-09-07] VITALS (23 sets, daily range): BP systolic 131–161; BP diastolic 89–98; PULSE 66–110; RESP 25–36; TEMP 36.4–36.9; O2SAT 89–93
[2020-09-07] MEDS: dexamethasone 4 mg/mL INJ 6 MG IVP (00:52)
[2020-09-07] MEDS: FUROsemide 10 mg/mL SDV 4mL 40 MG IVP ×4 (01:36→11:39)
[2020-09-07] MEDS: albuterol 8 gm MDI 2 PUFF INHALATION (03:16)
[2020-09-07] MEDS: piperacillin-tazobactam 3.375 GM in sodium chloride 0.9% (plus) 50 ML IV ×3 (04:25→22:02)
--- NOTE | 2020-09-07 05:00 | XRR_ITS ---
PROCEDURE INFORMATION: Exam: XR Chest Exam date and time: 09/07/2020 5:00 AM Age: 69 years old Clinical indication: Dyspnea; Additional info: Pna TECHNIQUE: Imaging protocol: XR of the chest. Views: 1 view. COMPARISON: CR (CHEST, ) 09/06/2020 4:14 PM FINDINGS: Lungs: Stable bilateral hazy parenchymal opacities. Pleural spaces: Unremarkable. No pleural effusion. No pneumothorax. Heart/Mediastinum: Unremarkable. No cardiomegaly. Bones/joints: Unremarkable. XR/XR chest 1V portable [id number] IMPRESSION: Stable bilateral hazy parenchymal opacities.
[2020-09-07 05:10] LABS: Basophils % 0.1 %; Hematocrit 47.2 % (42.0-52.0); Hemoglobin 16.1 g/dL (11.7-16.6); Lymphocytes # 0.3 10^3/uL (0.8-4.8); Lymphocytes % 4.9 %; Mean Corpuscular HGB Conc 34.1 g/dL (30.0-36.0); Mean Corpuscular Hemoglobin 29.9 pg (28.0-34.0); Mean Corpuscular Volume 87.7 fL (80-94); Mean Platelet Volume 11.3 fL (7.4-10.4); Monocytes # 0.5 10^3/uL (0.2-0.9); Monocytes % 7.1 %; Neutrophils # 5.86 10^3/uL (1.8-7.7); Nucleated Red Blood Cells % 0 %; Platelet Count 193 10^3/cmm (130-400); Red Blood Count 5.38 10^6/uL (4.1-5.3); Red Cell Distribution Width 13.2 % (12.1-15.1); White Blood Count 6.7 10^3/uL (4.0-10.0)
[2020-09-07 05:18] LABS: ABG PCO2 36.7 mmHg (35-45); ABG PH Result 7.44 (7.35-7.45); Alveolar-Arterial Oxygen Gradi 78.2 mmHg (5-10); Base Excess ABG 0.7 mmol/L (-2.0-2.0); Blood Gas Allen Test Pos; Blood Gas Operator Identificat JB; Blood Gas Sample Site Radial, right; Blood Gas Sample Type Arterial; Carboxyhemoglobin 0.6 %THgb (0.4-20.1); HCO3 ABG 24.6 mmol/L (22-26); HGB O2 Sat 91.7 % (95-100); Ionized Calcium Level - ABG 1.2 mmol/L (1.1-1.4); Methemoglobin 0.6 % (0.4-1.5); Oxygen Device BIPAP; Oxygen Saturation ABG 92.8; PO2 ABG 63.7 mmHg (80.0-100.0); Potassium Level - ABG 3.7 mmol/L (3.5-5.0); Total Hemoglobin 15.6 g/dL (14-18)
[2020-09-07 05:25] LABS: D Dimer 1.07 ug/mIFEU (0-0.59)
[2020-09-07 05:35] LABS: Alanine Aminotransferase 108 U/L (0-41); Albumin Level 3.7 g/dL (3.5-5.2); Alkaline Phosphatase 84 IU/L (40-130); Aspartate Amino Transferase 120 U/L (0-40); Blood Urea Nitrogen 36 mg/dL (8-23); Calcium 8.4 mg/dL (8.5-10.5); Carbon Dioxide 22 mmol/L (22-29); Chloride 100 mmol/L (98-107); Globulin 3.6 g/dL (1.3-4.6); Glomerular Filtration Rate 40.2 mL/min (90-130); Glucose 150 mg/dL (65-115); Osmolality Calculated 297 mOsm/kg (285-295); Sodium 138 mmol/L (136-145); Total Bilirubin 0.9 mg/dL (0.15-1.2); Total Protein 7.3 g/dL (6.6-8.7)
[2020-09-07 05:36] LABS: C Reactive Protein 30.7 mg/L (0.0-4.9)
[2020-09-07 05:41] LABS: Anion Gap 19.8 (5-19); Potassium 3.8 mmol/L (3.5-5.1)
[2020-09-07 05:47] LABS: Ferritin 3758 ng/mL (30-400)
[2020-09-07 05:51] LABS: Creatine Phosphokinase 533 U/L (39-308)
[2020-09-07 06:27] LABS: Erythrocyte Sedimentation Rate 39 mm/hr (0-10)
[2020-09-07 06:47] LABS: Fibrinogen 478 mg/dL (174-498)
[2020-09-07] MEDS: remdesivir 100 MG in sodium chloride 0.9% (100 ml) 100 ML IV (07:15)
[2020-09-07] MEDS: enoxaparin 100 mg/mL Syringe SUBCUT ×2 (07:16→18:30)
[2020-09-07] MEDS: atorvastatin 40 mg Tablet 20 MG PO (08:34)
[2020-09-07] MEDS: vancomycin 750 MG in sodium chloride 0.9% 250 ML 250 MG IV ×2 (08:34→19:07)
[2020-09-07] MEDS: pantoprazole DR 40 mg Tablet PO (08:34)
[2020-09-07] MEDS: budesonide 0.5 mg/2 mL Neb INHALATION ×2 (09:30→23:08)
[2020-09-07] MEDS: ipratropium-albuterol 3 mL Neb INHALATION ×4 (09:30→23:09)
[2020-09-07] MEDS: LORazepam 2 mg/mL INJ 1 mL IVP ×3 (12:53→22:02)
[2020-09-07] MEDS: benzonatate 100 mg Capsule PO (15:00)
--- NOTE | 2020-09-07 18:44 | PC.NUTR ---
Nutrition assessment triggered d/t MST score of 3. Spoke with pt's nurse who reports he is not likely to drink a supplement at this time, but may have improved po intakes with finger foods. Will add to diet information. If poor po intakes continue, recommend consideration of liberalizing diet order to Regular to promote intakes. See RD assessment for further details.
[2020-09-07] MEDS: dexmedetomidine 400 MCG in sodium chloride 0.9% (100 ml) 100 ML IV (23:46)
[2020-09-08] VITALS (18 sets, daily range): BP systolic 82–138; BP diastolic 62–86; PULSE 66–92; RESP 22–37; O2SAT 86–98
--- NOTE | 2020-09-08 01:56 | P.PN_ITS ---
Subjective Subjective: Interval history: Patient was seen and examined this morning, worsening respiratory status as well as interval worsening of chest xray. Suplemental oxygen requirement have gone up,needing 100 % fio2 through [facility]/BIPAP . Medications: Reviewed: Yes Vitals/I&O/Wt Last Vital Signs Temp 97.5 F L 09/07/20 16:07 Pulse 73 09/08/20 01:14 Resp 22 H 09/08/20 00:06 BP 114/83 09/08/20 00:06 Pulse Ox 89 L 09/08/20 01:14 09/07/20 09/07/20 09/08/20 14:59 22:59 06:59 Intake Total 400 / 400 300 / 700 Output Total 1400 / 1400 Balance 400 / 400 -1100 / -700 Weight last 48 hrs Weight 99.337 kg Physical Exam Const: COMMON NORMALS: patient oriented x3 HENMT: COMMON NORMALS: normocephalic and atraumatic HEAD & SCALP: normocephalic and atraumatic Chest: CHEST: Yes Symmetrical chest wall rise Resp: EFFORT & INSPECTION: Yes symmetric chest movement OTHER: B/L Crackles present in both guevara , diminished and coarse Cardio: COMMON NORMALS: regular rate, regular rhythm, S1 normal heart sound present, S2 normal heart sound present, No gallops present (Cardio), No rub (Cardio) and Peripheral pulses 2+ throughout RATE: regular rate RHYTHM: regular rhythm HEART SOUNDS: S1 normal heart sound present and S2 normal heart sound present PERIPHERAL PULSES: Peripheral pulses 2+ throughout GI: COMMON NORMALS: Normal to inspection, nondistended, normoactive bowel sounds present, Soft to palpation, non-tender, No hepatosplenomegaly present and no masses AUSCULTATION: Yes normoactive bowel sounds PALPATION: Yes Soft to palpation and Yes No hepatosplenomegaly present RECTAL EXAM: Yes deferred Extremity: COMMON NORMALS: no clubbing, cyanosis or edema and no pedal edema Neuro: COMMON NORMALS: patient oriented x3 Urinary Catheter Management^: Jaquez: Cath Placed During This Visit: yes Reason for Continuing Indwelling Catheter: Accurate Measurement of Urinary Output in Critically Ill Patients Urinary Catheter Date of Insertion: 09/05/20 Data : 09/07/20 04:20 09/07/20 04:20 Micro: Microbiology 09/06/20 19:48 Blood Culture - Preliminary Blood NEGATIVE TO DATE 09/06/20 19:43 Blood Culture - Preliminary Blood NEGATIVE TO DATE A&P Assessment and plan (1) Acute hypoxemic respiratory failure due to COVID-19: Acute hypoxic respiratory failure secondary to Covid pneumonia: X-ray chest:bilateral interstitial infiltrates ESR: 39 CRP:30 D-dimer: 1.07 Ferritin:3106 Fibrinogen: 478 Blood Culture :NTD Procalcitonin: 0.26 Monitor ABG:Ph : 7.44, PCO2: 36, PO2: 63, FIO2: 100 % Advair inhaler Budesonide inhaler Albuterol inhaler Robitussin Tessalon Perles Decadron 6 mg IV daily for 10 days Remdesivir for 5 days. S/P 1 Dose of Tocilizumab On Lovenox 100 mg q12 h daily On VAn and zosyn Status: Acute (2) Acute worsening of stage 3 chronic kidney disease: Ericka pre-renal in setting of CKD and Acute Rhabdo Baseline creatinine 1.3-1.5 Currently 1.7 Renal dosing of medications Initially on fluid hydration Monitor urine output Repeat BMP in a.m. Status: Acute (3) Rhabdomyolysis: CPK 533 Initially on Conscious fluid hydration.Now I.V fluids have been stopped. Monitor urine output Repeat CPK in am Status: Acute (4) Transaminitis: AST 120 ALT 108 ALP : 84 Total Bili- 1.6 Repeat LFT in am Possible due to rhabdo/Monitor as the patient is on Remdesivir May consider right upper quadrant ultrasound Status: Acute (5) History of renal cell carcinoma: Status post left nephrectomy Status: Acute (6) GERD (gastroesophageal reflux disease): Protonix 40 mg oral daily Status: Acute Qualifiers: Esophagitis presence: esophagitis presence not specified Qualified Code(s): K21.9 - Gastro-esophageal reflux disease without esophagitis Attestations Medical Necessity Statement*: Patient needs to be in the hospital for the management of respiratory failure Critical Care Time: The high probability of a clinically significant, sudden or life threatening deterioration of the patient's [] system(s) required my full and direct attention, intervention and personal management. The critical care time is as shown. 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
[2020-09-08] MEDS: dexamethasone 4 mg/mL INJ 6 MG IVP (03:23)
[2020-09-08] MEDS: piperacillin-tazobactam 3.375 GM in sodium chloride 0.9% (plus) 50 ML IV ×3 (05:02→20:07)
[2020-09-08] MEDS: remdesivir 100 MG in sodium chloride 0.9% (100 ml) 100 ML IV (05:45)
[2020-09-08 07:13] LABS: Hemoglobin 15.4 g/dL (11.7-16.6); Lymphocytes # 0.6 10^3/uL (0.8-4.8); Mean Corpuscular HGB Conc 32.8 g/dL (30.0-36.0); Mean Corpuscular Hemoglobin 29.1 pg (28.0-34.0); Mean Corpuscular Volume 88.8 fL (80-94); Mean Platelet Volume 11.2 fL (7.4-10.4); Monocytes # 0.4 10^3/uL (0.2-0.9); Monocytes % 5.3 %; Neutrophils # 5.54 10^3/uL (1.8-7.7); Neutrophils % 84.2 %; Nucleated Red Blood Cells % 0 %; Platelet Count 188 10^3/cmm (130-400); Red Blood Count 5.29 10^6/uL (4.1-5.3); Red Cell Distribution Width 13.2 % (12.1-15.1); White Blood Count 6.6 10^3/uL (4.0-10.0)
[2020-09-08] MEDS: dexmedetomidine 400 MCG in sodium chloride 0.9% (100 ml) 100 ML 18.08 MCG IV (07:21)
[2020-09-08] MEDS: vancomycin 750 MG in sodium chloride 0.9% 250 ML 250 MG IV (07:23)
[2020-09-08] MEDS: enoxaparin 100 mg/mL Syringe SUBCUT ×2 (07:23→19:16)
[2020-09-08 07:30] LABS: C Reactive Protein 14.9 mg/L (0.0-4.9); Creatine Phosphokinase 258 U/L (39-308); Vancomycin Trough 14.7 ug/mL (10-15)
[2020-09-08 07:37] LABS: D Dimer 0.71 ug/mIFEU (0-0.59)
[2020-09-08 07:43] LABS: Ferritin 3318 ng/mL (30-400)
[2020-09-08 08:04] LABS: Alanine Aminotransferase 148 U/L (0-41); Albumin Level 3.7 g/dL (3.5-5.2); Alkaline Phosphatase 78 IU/L (40-130); Anion Gap 21.3 (5-19); Aspartate Amino Transferase 111 U/L (0-40); Blood Urea Nitrogen 44 mg/dL (8-23); Calcium 8.4 mg/dL (8.5-10.5); Carbon Dioxide 21 mmol/L (22-29); Chloride 104 mmol/L (98-107); Globulin 3.2 g/dL (1.3-4.6); Glomerular Filtration Rate 35.3 mL/min (90-130); Glucose 178 mg/dL (65-115); Osmolality Calculated 310 mOsm/kg (285-295); Potassium 4.3 mmol/L (3.5-5.1); Sodium 142 mmol/L (136-145); Total Protein 6.9 g/dL (6.6-8.7)
[2020-09-08 08:05] LABS: Fibrinogen 459 mg/dL (174-498)
[2020-09-08 08:10] LABS: Erythrocyte Sedimentation Rate 26 mm/hr (0-10)
[2020-09-08] MEDS: budesonide 0.5 mg/2 mL Neb INHALATION ×2 (08:36→20:40)
[2020-09-08] MEDS: ipratropium-albuterol 3 mL Neb INHALATION ×3 (08:36→20:40)
[2020-09-08 08:41] LABS: Slide Review Slide Review Perform
--- NOTE | 2020-09-08 10:00 | PC.NURSE ---
This AM patient was resting in bed on bipap and was alert and oriented to self.This nurse was unable to understand any other responses. Dr. mullins
[2020-09-08] MEDS: ascorbic acid 500 mg Tablet PO (10:47)
[2020-09-08] MEDS: sodium chloride 0.45% 1,000 ML 75 ML IV (10:47)
[2020-09-08] MEDS: zinc gluconate 50 mg Tablet PO (10:47)
--- NOTE | 2020-09-08 11:40 | CT_ITS ---
WS: [id number] CT CHEST TECHNIQUE: Noncontrast CT of the chest with coronal and sagittal reformatted images. CLINICAL INFORMATION: follow up COMPARISON: None. DLP: 982.[address] scans at [facility] use at least one of these dose optimization techniques: automat ed exposure control; mA and/or kV adjustment per patient size (includes targeted exams where dose is matched to clinical indication); or iterative reconstruction. FINDINGS: Diffuse bilateral hazy groundglass infiltrates suspicious for Covid 19 pneumonia. Small to moderate a mount of Pneumomediastinum. No pneumothorax. No significant air within the subcutaneous neck soft tis sues. No mediastinal or hilar lymphadenopathy. Normal GE junction. Adrenal glands are normal. Fatty atroph y of the pancreas. Small splenule. No axillary lymphadenopathy. Chronic anterior wedging L1. Incident al aberrant right subclavian artery. CT/CT chest wo con [id number] IMPRESSION: 1. Diffuse hazy bilateral groundglass infiltrates suspicious for COVID19 pneum onia. 2. Small to moderate Pneumomediastinum. No pneumothorax. 3. No significant pericardial effusion. 4. No mediastinal or hilar lymphadenopathy. 5. Incidental aberrant right subclavian artery. Notified Jabari Lindsey MD at 09/08/2020 12:51 PM.
--- NOTE | 2020-09-08 12:35 | PC.NURSE ---
CT Patient was taken to CT by this nurse and respiratory. Oxygen levels were as low as 80% on non rebreather. bipap was brought to CT and patient was placed on bipap while CT being done. Tolerated well and placed back on bipap when in room.
[2020-09-08 13:03] LABS: Procalcitonin 0.22 ng/mL (0-0.5); Thyroid Stimulating Hormone 1.18 uIU/mL (0.27-4.20)
[2020-09-08 13:14] LABS: Iron 119 ug/dL (59-158); Percent Saturation 56.1 % (20-50); Total Iron Binding Capacity 212 mcg/dl; Unsaturated Iron Binding 93 ug/dL (112-347)
--- NOTE | 2020-09-08 14:38 | PC.SOCIAL ---
IMM update IMM updated with via telephone. Verbalized an understanding. Initialed, dated, timed, and placed in chart.
[2020-09-08] MEDS: benzonatate 100 mg Capsule PO ×2 (14:52→20:07)
[2020-09-08] MEDS: FUROsemide 10 mg/mL SDV 2mL 20 MG IVP (17:29)
--- NOTE | 2020-09-08 18:48 | PC.ADMIT ---
[email or web address] Admission Note: The patient,Hemant Michaels,69 y/o, was given written information regarding hospital policies, unit procedures and contact persons. Patient's smoking status: never smoked. Vital Signs - 8 hr 09/08/20 12:01 09/08/20 14:00 09/08/20 16:07 Pulse Rate 76 72 Pulse Rate [Current] Respiratory Rate 30 H Respiratory Rate [Current] Blood Pressure 112/86 Pulse Oximetry 88 L Pulse Oximetry [Current] 09/08/20 16:08 09/08/20 16:47 Pulse Rate 78 Pulse Rate [Current] 70 Respiratory Rate 36 H Respiratory Rate [Current] 30 H Blood Pressure 115/82 Pulse Oximetry 86 L Pulse Oximetry [Current] 90
--- NOTE | 2020-09-08 19:35 | PM.PN ---
Subjective Subjective: Interval history: Hospital course appreciated, labs appreciated. On examination patient is confused, sleepy on BiPAP 100% FiO2 saturating 91%. Has remained hemodynamically stable and afebrile overnight. Medications: Reviewed: Yes Vitals/I&O/Wt Last Vital Signs Temp 97.5 F L 09/07/20 16:07 Pulse 78 09/08/20 16:47 Resp 36 H 09/08/20 16:47 BP 115/82 09/08/20 16:47 Pulse Ox 86 L 09/08/20 16:47 09/08/20 09/08/20 09/08/20 06:59 14:59 22:59 Intake Total 50.602 / 750.602 379.892 / 379.892 423.056 / 802.948 Output Total 400 / 1800 575 / 575 Balance -349.398 / -1049.398 379.892 / 379.892 -151.944 / 227.948 Weight last 48 hrs Weight 98.968 kg Weight 99.337 kg Physical Exam Const: COMMON NORMALS: patient oriented x3 HENMT: COMMON NORMALS: normocephalic and atraumatic HEAD & SCALP: normocephalic and atraumatic Chest: CHEST: Yes Symmetrical chest wall rise Resp: EFFORT & INSPECTION: Yes symmetric chest movement OTHER: B/L Crackles present in both guevara , diminished and coarse Cardio: COMMON NORMALS: regular rate, regular rhythm, S1 normal heart sound present, S2 normal heart sound present, No gallops present (Cardio), No rub (Cardio) and Peripheral pulses 2+ throughout RATE: regular rate RHYTHM: regular rhythm HEART SOUNDS: S1 normal heart sound present and S2 normal heart sound present PERIPHERAL PULSES: Peripheral pulses 2+ throughout GI: COMMON NORMALS: Normal to inspection, nondistended, normoactive bowel sounds present, Soft to palpation, non-tender, No hepatosplenomegaly present and no masses AUSCULTATION: Yes normoactive bowel sounds PALPATION: Yes Soft to palpation and Yes No hepatosplenomegaly present RECTAL EXAM: Yes deferred Extremity: COMMON NORMALS: no clubbing, cyanosis or edema and no pedal edema Neuro: COMMON NORMALS: patient oriented x3 Urinary Catheter Management^: Jaquez: Cath Placed During This Visit: yes Reason for Continuing Indwelling Catheter: Accurate Measurement of Urinary Output in Critically Ill Patients Urinary Catheter Date of Insertion: 09/05/20 Data : 09/08/20 06:46 09/08/20 06:46 Micro: Microbiology 09/08/20 10:42 MRSA Culture - Final Nose 09/08/20 10:45 Bacterial Antigens - Final Urine Kidney 09/08/20 10:45 Legionella Urinary Antigen - Final Urine Catheterized 09/06/20 19:48 Blood Culture - Preliminary Blood NEGATIVE TO DATE 09/06/20 19:43 Blood Culture - Preliminary Blood NEGATIVE TO DATE A&P Assessment and plan (1) ARDS (adult respiratory distress syndrome): Status: Acute (2) Acute hypoxemic respiratory failure due to COVID-19: Status: Acute (3) Pneumomediastinum: Status: Acute (4) Acute worsening of stage 3 chronic kidney disease: Status: Acute (5) Rhabdomyolysis: Status: Acute (6) Transaminitis: Status: Acute (7) History of renal cell carcinoma: Status post left nephrectomy Status: Acute (8) GERD (gastroesophageal reflux disease): Protonix 40 mg oral daily Status: Acute Qualifiers: Esophagitis presence: esophagitis presence not specified Qualified Code(s): K21.9 - Gastro-esophageal reflux disease without esophagitis Additional A&P Information ARDS secondary COVID-19 pneumonia: Severe disease. Oxygen supplementation keeping saturation around 88 to 90%. Will wean accordingly. Check ABG. Continue remdesivir to finish 5-day course. Post 1 dose of Actemra. Dexamethasone for 10 days IV. Pulmicort twice daily, DuoNebs every 4 hours. Vitamin C, zinc Pulmonary toilet with incentive spirometry and flutter valve when possible. Wean off from BiPAP to heated high flow keeping saturation around 88 to 90%. We will continue to monitor inflammatory markers including ESR, CRP, ferritin, LDH, D-dimer. D-dimer trending down. As patient is critically sick continue with full dose anticoagulation. We will continue to monitor hemoglobin. Check procalcitonin, MRSA swab, urine Legionella, bacterial antigen, sputum culture. Blood cultures preliminary negative so far. For now continue with vancomycin and Zosyn. Will de-escalate antibiotics accordingly. Strict input output charting. Check echocardiogram. We will try to keep patient as negative as possible. Currently patient is net equal. Check CT scan without contrast to visualize pneumonitis, rule out pneumomediastinum. 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 JONA on CKD: Baseline creatinine 1.5. Currently creatinine 1.9 with mild metabolic acidosis. Anion gap normal. Medical reconciliation done for nephrotoxic drugs. IV Lasix 20 mg stat for now. We will continue to monitor. Rhabdomyolysis: Most likely secondary severe hypoxia and sepsis. Continue to monitor CPK daily for now. Seems to be improving. Hold off on further hydration for now given tenuous respiratory status. Transaminitis: Most likely secondary rhabdomyolysis and severe sickness. Trending down. Continue to monitor. Check hepatitis panel, HIV. If continues to worsen will do liver ultrasound. Discussed patient's care with his Ms. Goodwin over the phone who unfortunately was also admitted to the hospital with COVID-19 pneumonia. Discussed patient's health further with his brother over the phone on [phone] who states he would speak with patient's son Mr. Tobias and will get back to us regarding further CODE STATUS. All the questions were answered. Full code. Full dose anticoagulation help with DVT prophylaxis. Protonix for PUD prophylaxis. Attestations Medical Necessity Statement*: Requires further hospitalization for management of ARDS, COVID-19 pneumonia, pneumomediastinum, BiPAP dependent. Critical Care Time: The high probability of a clinically significant, sudden or life threatening deterioration of the patient's [respiratory] system(s) required my full and direct attention, intervention and personal management. The critical care time is as shown. This time is in addition to time spent performing any reported procedures but includes the following: [x] Data and vital sign review and interpretation [x] Patient assessment, examination and intervention [x] Documentation [x] Medication orders and management Critical Care Time (min): 90 Coding Level of Care Code Acute Major General for [facility] Fwd Diagnoses ARDS (adult respiratory distress syndrome) J80 Acute hypoxemic respiratory failure due to COVID-19 U07.1; J96.01 Pneumomediastinum J98.2 Acute worsening of stage 3 chronic kidney disease N18.30 Rhabdomyolysis M62.82 Transaminitis R74.01 History of renal cell carcinoma Z85.528 GERD (gastroesophageal reflux disease) K21.9 Esophagitis presence: esophagitis presence not specified
--- NOTE | 2020-09-08 19:52 | PC.NURSE ---
Son is [facility] phone number [phone].
[2020-09-08] MEDS: dexmedetomidine 400 MCG in sodium chloride 0.9% (100 ml) 100 ML 7.75 MCG IV (22:07)
[2020-09-08] MEDS: FUROsemide 10 mg/mL SDV 4mL 40 MG IVP (22:09)
[2020-09-09] VITALS (21 sets, daily range): BP systolic 107–124; BP diastolic 71–86; PULSE 66–88; RESP 24–30; O2SAT 89–97
[2020-09-09] MEDS: dexamethasone 4 mg/mL INJ 6 MG IVP (01:14)
[2020-09-09] MEDS: ipratropium-albuterol 3 mL Neb INHALATION ×4 (03:29→20:32)
[2020-09-09] MEDS: piperacillin-tazobactam 3.375 GM in sodium chloride 0.9% (plus) 50 ML IV ×3 (04:25→21:09)
[2020-09-09 05:23] LABS: Basophils % 0.1 %; Eosinophils % 0.2 %; Hematocrit 48.9 % (42.0-52.0); Hemoglobin 16.1 g/dL (11.7-16.6); Lymphocytes # 0.4 10^3/uL (0.8-4.8); Lymphocytes % 4.5 %; Mean Corpuscular HGB Conc 32.9 g/dL (30.0-36.0); Mean Corpuscular Hemoglobin 29.4 pg (28.0-34.0); Mean Corpuscular Volume 89.2 fL (80-94); Mean Platelet Volume 11.5 fL (7.4-10.4); Monocytes # 0.3 10^3/uL (0.2-0.9); Monocytes % 3.8 %; Neutrophils # 7.57 10^3/uL (1.8-7.7); Neutrophils % 90.4 %; Nucleated Red Blood Cells % 0 %; Platelet Count 200 10^3/cmm (130-400); Red Blood Count 5.48 10^6/uL (4.1-5.3); Red Cell Distribution Width 13.1 % (12.1-15.1); White Blood Count 8.4 10^3/uL (4.0-10.0)
[2020-09-09 05:37] LABS: D Dimer 0.87 ug/mIFEU (0-0.59)
[2020-09-09 05:40] LABS: Alanine Aminotransferase 166 U/L (0-41); Albumin Level 3.7 g/dL (3.5-5.2); Alkaline Phosphatase 83 IU/L (40-130); Aspartate Amino Transferase 102 U/L (0-40); Blood Urea Nitrogen 56 mg/dL (8-23); Calcium 8.5 mg/dL (8.5-10.5); Carbon Dioxide 23 mmol/L (22-29); Chloride 104 mmol/L (98-107); Globulin 3.5 g/dL (1.3-4.6); Glomerular Filtration Rate 33.3 mL/min (90-130); Glucose 156 mg/dL (65-115); Osmolality Calculated 317 mOsm/kg (285-295); Sodium 144 mmol/L (136-145); Total Bilirubin 0.9 mg/dL (0.15-1.2); Total Protein 7.2 g/dL (6.6-8.7)
[2020-09-09 05:44] LABS: Estmated Average Glucose 128; Hemoglobin A1C 6.1 % (4.0-6.0)
[2020-09-09 05:50] LABS: C Reactive Protein 10.1 mg/L (0.0-4.9); Creatine Phosphokinase 120 U/L (39-308); NT Pro B Type Natriuretic Pept 88 pg/mL (0-125)
[2020-09-09 06:02] LABS: Ferritin 2752 ng/mL (30-400)
[2020-09-09] MEDS: remdesivir 100 MG in sodium chloride 0.9% (100 ml) 100 ML IV (06:11)
--- NOTE | 2020-09-09 06:16 | PC.NURSE ---
No acute changes overnight. Patient still satting 90% at 100% FIO2 on bipap. Respirations decreased and more at ease since starting precedex gtt. Continue care.
--- NOTE | 2020-09-09 06:19 | P.CONIM_ITS ---
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 He was seen for this by primary care physician in 08/29 during which time he was found to be COVID-19 PCR positive. Also noted poor appetite and generalized weakness. Denied chest pain. No diarrhea or constipation. Denied abdominal pain. Laboratory workup on arrival showed a WBC of 5.2, hemoglobin 16.3, hematocrit of 49.1 and platelet count of 128. D-dimer was elevated 2.91. Arterial blood gas showed a pH of 7.46, pCO2 of 28.5, PO2 of 57.2 and bicarb of 20.3. This was initially on 3 L O2. Sodium 131, potassium 4.1, chloride 93, bicarb 21, BUN 40 and creatinine of 2.1. AST of 181, ALT of 131, alkaline phosphatase is 67, total bilirubin 1.6. Creatinine phosphokinase was elevated at 1709. Troponin of 37. CRP of 83.2. ProBNP of 132. Procalcitonin of 0.26. Chest x-ray showed predominantly peripheral interstitial opacities bilaterally. Initial vital signs showed a temperature of 98.5?, blood pressure of 145/86, heart rate of 101, respiratory rate 24 with O2 saturation of 79%. In emergency room patient was given 50 100 cc bolus of NS, Decadron 10 mg, DuoNeb treatment. Today is day 6 of admission, patient seen BiPAP 12/800% FiO2-saturating 90 to 92% On Precedex gtt. 0.3 mg/h appeared comfortable in any chest pain Completed 5 day course of remdesivir and 1 dose of actemra yesterday CT chest showed Small to moderate Pneumomediastinum. No pneumothorax. Labs and imaging reviewed Review of Systems General: Reports: 10 or more systems reviewed and unremarkable except in HPI and below and ROS unobtainable due to medical condition Meds/Allergies Home Medications and Allergies Home Medications Medication Instructions Recorded Confirmed Last Taken Type acetaminophen [Tylenol Extra 500 - 1,000 mg PO PRN 09/05/20 09/05/20 Unknown History Strength] omeprazole magnesium [Prilosec OTC] 20 mg PO DAILY PRN 09/05/20 09/05/20 Unknown History rosuvastatin [Crestor] 10 mg PO DAILY 09/05/20 09/05/20 Unknown History Allergies Allergy/AdvReac Type Severity Reaction Status Date / Time No Known Allergies Allergy Verified 09/05/20 09:20 Current Medications Current Medications Generic Name Dose Route Start Last Admin Trade Name Freq PRN Reason Stop Dose Admin Albuterol Sulfate 2 puff 09/05/20 07:36 09/06/20 20:40 Albuterol 8 Gm Mdi INHALATION 2 inhalation Q4H.RESPIRATORY PRN Administration SHORTNESS OF BREATH Albuterol Sulfate 2 puff 09/05/20 16:30 09/09/20 03:29 Albuterol 8 Gm Mdi INHALATION Not Given Q6H XAVIER Albuterol/Ipratropium 3 ml 09/05/20 01:24 09/08/20 08:36 Ipratropium-Albuterol 3 Ml Neb INHALATION 3 ml Q6H PRN Administration SHORTNESS OF BREATH Albuterol/Ipratropium 3 ml 09/08/20 15:00 09/09/20 03:29 Ipratropium-Albuterol 3 Ml Neb INHALATION 3 ml Q6H.RESPIRATORY XAVIER Administration Ascorbic Acid 500 mg 09/08/20 10:30 09/08/20 10:47 Ascorbic Acid 500 Mg Tablet PO 500 mg DAILY XAVIER Administration Atorvastatin Calcium 20 mg 09/05/20 09:00 09/08/20 09:28 Atorvastatin 40 Mg Tablet PO Not Given DAILY XAVIER Benzonatate 100 mg 09/08/20 15:00 09/08/20 20:07 Benzonatate 100 Mg Capsule PO 100 mg TID XAVIER Administration Budesonide 0.5 mg 09/05/20 20:00 09/08/20 20:40 Budesonide 0.5 Mg/2 Ml Neb INHALATION 0.5 mg BID.RESPIRATORY XAVIER Administration Dexamethasone 6 mg 09/05/20 01:30 09/09/20 01:14 Dexamethasone 4 Mg/Ml Inj IVP 6 mg Q24H XAVIER Administration Enoxaparin Sodium 100 mg 09/06/20 19:30 09/08/20 19:16 Enoxaparin 100 Mg/Ml Syringe 1 mg/kg (100 mg) 100 mg SUBCUT Administration Q12H XAVIER Furosemide 40 mg 09/08/20 20:45 09/08/20 22:09 Furosemide 10 Mg/Ml Sdv 4ml IVP 40 mg Q24H XAVIER Administration Remdesivir 100 mg/ Sodium 100 mls @ 100 mls/hr 09/06/20 06:00 09/09/20 06:11 Chloride IV 09/09/20 06:59 100 mls/hr Q24H XAVIER Administration Piperacillin Sod/Tazobactam 50 mls @ 12.5 mls/hr 09/06/20 21:00 09/09/20 04:25 Sod 3.375 gm/ Sodium Chloride IV 12.5 mls/hr Q8H XAVIER Administration Protocol Dexmedetomidine HCl 400 mcg/ 104 mls @ 0 mls/hr 09/07/20 22:15 09/08/20 22:07 Sodium Chloride IV 0.3 mcg/kg/hr .Q0M XAVIER 7.75 mls/hr Administration Protocol Per Protocol Pantoprazole Sodium 40 mg 09/05/20 09:00 09/08/20 09:[address] 40 Mg Tablet PO Not Given DAILY XAVIER Zinc Gluconate 50 mg 09/08/20 10:30 09/08/20 10:47 Zinc Gluconate 50 Mg Tablet PO 50 mg DAILY XAVIER Administration PFSH Acute PFSH: Medical History Abdominal lipoma Arthritis Chronic kidney disease Clear cell carcinoma of left kidney GERD (gastroesophageal reflux disease) Renal calculi Urolithiasis Surgical History H/O laparoscopy (~08/04/20) excision of abdominal wall mas H/O left nephrectomy History of colonoscopy 2019 History of thyroid surgery Family History Mother Cancer Father No problems noted. Social History Smoking and tobacco status: never smoked Alcohol intake: never Marital status: Current occupational status: retired History of recent travel: No Vitals/I&O/Wt Last Vital Signs Temp 97.5 F L 09/07/20 16:07 Pulse 66 09/09/20 06:05 Resp 24 H 09/09/20 05:18 BP 107/71 09/09/20 05:18 Pulse Ox 92 09/09/20 06:05 09/08/20 09/08/20 09/09/20 14:59 22:59 06:59 Intake Total 379.892 / 379.892 512.108 / 892.000 80 / 972.000 Output Total 575 / 575 1600 / 2175 Balance 379.892 / 379.892 -62.892 / 317.000 -1520 / -1203.000 Weight last 48 hrs Weight 215 lb 4 oz Weight 218 lb 3 oz Physical Exam Narrative: EXAM NARRATIVE: General: alert, NAD HEENT: conj clear, EOMI, PERRL, mmm, Neck: supple, no meningismus Heme: no cervical LAP Pulmonary: Bilateral diffuse crackles Cardiovascular: rrr, nl s1s2, no mrg Abdomen: soft, nt, nd, no r/g, bs+ Extremities: pulses +, no edema, no c/c : no CVA tenderness Skin: intact, no rash MSK: no back or neck pain Neurologic: grossly intact Urinary Catheter Management^: Jaquez: Cath Placed During This Visit: yes Reason for Continuing Indwelling Catheter: Accurate Measurement of Urinary Output in Critically Ill Patients Urinary Catheter Date of Insertion: 09/05/20 Data Labs: Other Labs: Laboratory Results WBC 8.4 10^3/uL (4.0- 10.0) 09/09/20 04:33 RBC 5.48 10^6/uL (4.1 -5.3) H 09/09/20 04:33 Hgb 16.1 g/dL (11.7-1 6.6) 09/09/20 04:33 Hct 48.9 % (42.0-52.0 ) 09/09/20 04:33 MCV 89.2 fL (80-94) 09/09/20 04:33 MCH 29.4 pg (28.0-34. 0) 09/09/20 04:33 MCHC 32.9 g/dL (30.0-3 6.0) 09/09/20 04:33 RDW 13.1 % (12.1-15.1 ) 09/09/20 04:33 Plt Count 200 10^3/cmm (130 -400) 09/09/20 04:33 MPV 11.5 fL (7.4-10.4 ) H 09/09/20 04:33 Neut % (Auto) 90.4 % 09/09/20 04:33 Lymph % (Auto) 4.5 % 09/09/20 04:33 Trego % (Auto) 3.8 % 09/09/20 04:33 Eos % (Auto) 0.2 % 09/09/20 04:33 Baso % (Auto) 0.1 % 09/09/20 04:33 Neut # (Auto) 7.57 10^3/uL (1.8 -7.7) 09/09/20 04:33 Lymph # (Auto) 0.4 10^3/uL (0.8- 4.8) L 09/09/20 04:33 Trego # (Auto) 0.3 10^3/uL (0.2- 0.9) 09/09/20 04:33 Eos # (Auto) 0.0 10^3/uL (0.0- 0.8) 09/09/20 04:33 Baso # (Auto) 0.0 10^3/uL (0.0- 0.1) 09/09/20 04:33 Nucleated RBC % (a uto) 0 % 09/09/20 04:33 Nucleated RBCs # 0.0 /100WBC 09/09/20 04:33 ESR 26 mm/hr (0-10) H 09/08/20 06:46 PT 13.40 SECONDS (12 .1-14.9) 09/04/20 23:20 INR 0.99 (0.8-1.2) 09/04/20 23:20 APTT 27.4 SECONDS (23. 9-36.7) 09/04/20 23:20 Fibrinogen 459 mg/dL (174-49 8) 09/08/20 06:46 D-Dimer 0.87 ug/mIFEU (0- 0.59) H 09/09/20 04:33 Specimen Type Arterial 09/07/20 05:04 Sample Site Radial, right 09/07/20 05:04 ABG pH 7.44 (7.35-7.45) 09/07/20 05:04 ABG pCO2 36.7 mmHg (35-45) 09/07/20 05:04 ABG pO2 63.7 mmHg (80.0-1 00.0) L 09/07/20 05:04 ABG HCO3 24.6 mmol/L (22-2 6) 09/07/20 05:04 ABG O2 Saturation 92.8 09/07/20 05:04 ABG Base Excess 0.7 mmol/L (-2.0- 2.0) 09/07/20 05:04 Albino Test Pos 09/07/20 05:04 A-a O2 Gradient 78.2 mmHg (5-10) H 09/07/20 05:04 Hematocrit 48.0 % (42-52) 09/07/20 05:04 Hgb O2 Saturation 91.7 % (95-100) L 09/07/20 05:04 Carboxyhemoglobin 0.6 %THgb (0.4-20 .1) 09/07/20 05:04 Methemoglobin 0.6 % (0.4-1.5) 09/07/20 05:04 Total Hemoglobin 15.6 g/dL (14-18) 09/07/20 05:04 Sodium 142.0 mmol/L (131 -143) 09/07/20 05:04 Potassium 3.7 mmol/L (3.5-5 .0) 09/07/20 05:04 Glucose 150.0 mg/dL (70-1 15) H 09/07/20 05:04 Ionized Calcium 1.2 mmol/L (1.1-1 .4) 09/07/20 05:04 O2 Delivery Device Bipap 09/07/20 05:04 O2 Liters/Min 3.0 % 09/04/20 21:40 FiO2 100.0 % 09/07/20 05:04 Tray Service Worker ID Stan 09/07/20 05:04 Sodium 144 mmol/L (136-1 45) 09/09/20 04:33 Potassium 4.0 mmol/L (3.5-5 .1) 09/09/20 04:33 Chloride 104 mmol/L (98-10 7) 09/09/20 04:33 Carbon Dioxide 23 mmol/L (22-29) 09/09/20 04:33 Anion Gap 21.0 (5-19) H 09/09/20 04:33 BUN 56 mg/dL (8-23) H 09/09/20 04:33 Creatinine 2.0 mg/dL (0.7-1. 2) H 09/09/20 04:33 GFR Calculation 33.3 mL/min (90-1 30) L 09/09/20 04:33 Glucose 156 mg/dL (65-115 ) H 09/09/20 04:33 Estimat Average Gl ucose 128 09/09/20 04:33 Hemoglobin A1c 6.1 % (4.0-6.0) H 09/09/20 04:33 Calculated Osmolal ity 317 mOsm/kg (285- 295) H 09/09/20 04:33 Lactic Acid 1.5 mmol/L (0.5-2 .2) 09/04/20 23:20 Calcium 8.5 mg/dL (8.5-10 .5) 09/09/20 04:33 Iron 119 ug/dL (59-158 ) 09/08/20 06:46 TIBC 212 mcg/dl 09/08/20 06:46 % Saturation 56.1 % (20-50) H 09/08/20 06:46 Unsat Iron Binding 93 ug/dL (112-347 ) L 09/08/20 06:46 Ferritin 2752 ng/mL (30-40 0) H 09/09/20 04:33 Total Bilirubin 0.9 mg/dL (0.15-1 .2) 09/09/20 04:33 AST 102 U/L (0-40) H 09/09/20 04:33 ALT 166 U/L (0-41) H 09/09/20 04:33 Alkaline Phosphata se 83 IU/L (40-130) 09/09/20 04:33 Creatine Kinase 120 U/L (39-308) 09/09/20 04:33 Troponin T Gen 5 n g/L 37 ng/L (0-15) H 09/04/20 23:20 C-Reactive Protein 10.1 mg/L (0.0-4. 9) H 09/09/20 04:33 NT-Pro-B Natriuret Pep 88 pg/mL (0-125) 09/09/20 04:33 Total Protein 7.2 g/dL (6.6-8.7 ) 09/09/20 04:33 Albumin 3.7 g/dL (3.5-5.2 ) 09/09/20 04:33 Globulin 3.5 g/dL (1.3-4.6 ) 09/09/20 04:33 Procalcitonin 0.22 ng/mL (0-0.5 ) 09/08/20 06:46 TSH 1.18 uIU/mL (0.27 -4.20) 09/08/20 06:46 TSH Cancelled 09/08/20 06:46 Vancomycin Trough 14.7 ug/mL (10-15 ) 09/08/20 06:46 Impressions Chest X-Ray 09/07/20 05:00 IMPRESSION: Stable bilateral hazy parenchymal opacities. Chest CT 09/08/20 11:40 IMPRESSION: 1. Diffuse hazy bilateral groundglass infiltrates suspicious for COVID19 pneumonia. 2. Small to moderate Pneumomediastinum. No pneumothorax. 3. No significant pericardial effusion. 4. No mediastinal or hilar lymphadenopathy. 5. Incidental aberrant right subclavian artery. Notified Jabari Lindsey MD at 09/08/2020 12:51 PM. Micro: Micro: Microbiology 09/08/20 10:42 MRSA Culture - Fin al Nose 09/08/20 10:45 Bacterial Antigens - Final Urine Kidney 09/08/20 10:45 Legionella Urinary Antigen - Final Urine Catheterize d A&P Assessment and plan (1) ARDS (adult respiratory distress syndrome): Status: Acute (2) Pneumomediastinum: Status: Acute (3) Acute worsening of stage 3 chronic kidney disease: Status: Acute (4) Acute hypoxemic respiratory failure due to COVID-19: Status: Acute (5) Suspected severe acute respiratory syndrome coronavirus 2 (SARS-CoV-2) infection: Status: Acute (6) History of renal cell carcinoma: Status: Acute (7) Obesity (BMI 30-39.9): Status: Acute (8) GERD (gastroesophageal reflux disease): Status: Acute Qualifiers: Esophagitis presence: esophagitis presence not specified Qualified Code(s): K21.9 - Gastro-esophageal reflux disease without esophagitis Overall: Hemant Michaels is a 69 year old male with PMH significant for hyperlipidemia, clear cell carcinoma of left kidney status post nephrectomy, gastroesophageal reflux disease, abdominal lipoma status post resection on 08/04/2020, chronic ki dney disease stage III with baseline creatinine around 1.5 admitted to ICU for acute hypoxic respiratory failure secondary to ARDS due to COVID-19 pneumonia complicated by a pneumomediastinum. #Acute hypoxic respiratory failure secondary to ARDS due to COVID-19 pneumonia #Moderate pneumomediastinum #JONA on CKD patient with history of renal cell carcinoma and nephrectomy #Obesity BMI 34.7 #GERD -Currently saturating 92% on BiPAP 12/8 FiO2 100% at high risk for intubation -Also on Precedex 0.3 MCG per hour GTT for anxiety -No change in FiO2 requirements in the last 2 days on BiPAP patient appears in respiratory distress at this point -We will try to reduce positive pressure as much as possible to prevent worsening of pneumomediastinum; while maintaining saturations greater than 88; - if patient is tachypneic; will proceed with intubation and mechanical ventilation and hope pneumomediastinum does not get worse with positive pressures -Continues to be afebrile, normal white count, procalcitonin 0.22, cultures negative so far, urine Legionella antigen, bacterial antigens, MRSA nares negative -Improving ESR, CRP, ferritin, monitor inflammatory markers every 48 hours -Completed 5 days of remdesivir and 1 dose of Actemra -Currently on dexamethasone 6 mg IV push daily -Pulmicort 0.5 and DuoNeb every 6 hours scheduled; incentive spirometry as tolerated -On Zosyn every 8 hours scheduled -Lovenox 100 mg subcutaneous every 12 hours for DVT prophylaxis and high D-dimer -On Lasix 40 mg daily -I/O/N since admission-1 L;Last 24 hours -1.2 L; electrolytes within normal limits -Worsening LFTs-secondary to [id number] LFTs; hold lipitor -Sugars moderately controlled-As he is on steroids, A1c 6.1-patient prediabetic- we will cover with scale coverage and sent for ketones given high anion gap Medical condition explained to the patient at bedside and he verbalized understanding and agreed with the plan Recommendations conveyed to hospitalist, RN, RT covering the patient Consult Attestations Medical Necessity Statement: Acute hypoxic respiratory failure due to ARDS due to COVID-19 requiring high FiO2 on BiPAP-impending intubation-need close respiratory monitoring Time Spent in Patient Care: (>than 50% of time spent in counselling and/or direct pt care on unit) . Critical Care Time: The high probability of a clinically significant, sudden or life threatening deterioration of the patient's [respiratory, renal, endocrine] system(s) required my full and direct attention, intervention and personal management. The critical care time is as shown. 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
[2020-09-09] MEDS: pantoprazole DR 40 mg Tablet PO (08:29)
[2020-09-09] MEDS: ascorbic acid 500 mg Tablet PO (08:29)
[2020-09-09] MEDS: zinc gluconate 50 mg Tablet PO (08:29)
[2020-09-09] MEDS: atorvastatin 40 mg Tablet 20 MG PO (08:29)
[2020-09-09] MEDS: enoxaparin 100 mg/mL Syringe SUBCUT ×2 (08:29→19:56)
[2020-09-09] MEDS: benzonatate 100 mg Capsule PO ×2 (08:29→21:10)
[2020-09-09] MEDS: budesonide 0.5 mg/2 mL Neb INHALATION ×2 (08:50→20:32)
--- NOTE | 2020-09-09 09:10 | USCV_ITS ---
Hemant Michaels Age: 69 Gender: M : 1950 Exam Date: 09/09/2020 09:40 Ordering Phys: Jabari Lindsey MD Technologist: Colby Brady Exam Location: [facility] – [place] Indication: COVID SOB PNEUM MEDSTIEM BP: / HR: Rhythm: Sinus Technical Quality: Very technically difficult study MEASUREMENTS (Male / Female) Normal Values FINDINGS Left Ventricle Right Ventricle Right Atrium Left Atrium Mitral Valve Aortic Valve Tricuspid Valve Pulmonic Valve Pericardium Aorta CONCLUSIONS NO WINDOWS Very difficult and limited exam due to no windows Probably normal left ventricular ejection fraction, estimated ejection fraction around 50% Right ventricle appeared to be normal There is no pericardial effusion Due to suboptimal images this exam cannot be compared with the prior Madan Leblanc MD (Electronically Signed) Final Date: 09 September 2020 17:50 S
[2020-09-09] MEDS: dextrose 5%-sod chloride 0.9% 1,000 ML 30 ML IV (09:35)
[2020-09-09] MEDS: FUROsemide 10 mg/mL SDV 4mL 40 MG IVP (09:35)
[2020-09-09] MEDS: morphine 4 mg/mL SDV 1 mL 1 MG IVP (09:36)
--- NOTE | 2020-09-09 09:59 | PC.CHAP ---
Pastoral Care Encounter/Spiritual Assessment Type of Contact [] Declined brim stitcher visit [] Patient/Family/Request visit [] Outpatient visit [] Follow-up visit [] Physician referral [] Code/Alert [x] Routine visit [] Staff referral [] Actively dying [] Patient sleeping [] Family support [] [] Out of room [] Palliative care [] [x] Receiving care in room [] Pre-surgical visit [] Trauma [] Long length of stay [x] ICU visit [x] Other: isolated Relational/Emotional Strength [] Patient feels connected with others/family/visitors/staff [] Distress [] Loneliness/isolation [] Abandonment Spirituality of Patient [] Person of Chichi [] Attends Jewish of their [place] [] Believes in Prayer [] Reads Bible or Worship materials [] There are Spiritual issues to be addressed Bridge Manager Interventions [x] Prayer [] Active listening [] Non-anxious presence [] Spiritual/emotional support [] Crisis/trauma care [] Spiritual counseling [] Bereavement support [] Provided bereavement packet [] Provided Bible/devotional materials [] Provided toy/stuffed animal, coloring book to patient or family member [] Provided Communion [] Anointing/[place] [] Salvation [x] Completed spiritual assessment [] Other: Impact on Illness or Injury [] Angry [] Fearful [] Anxious [] Often cries [] Exhaustion [] Unable to work [] Unable to attend sikh [] Unable to walk/stand [] Unable to read [] Unable to drive [] Unable to eat/drink [] Unable to sleep [] Unable to be with family [] Patient intubated [] Other: Summary Time spent with patient
[2020-09-09 10:00] LABS: Glucose Point of Care 120 mg/dL (70-110)
[2020-09-09] MEDS: dexmedetomidine 400 MCG in sodium chloride 0.9% (100 ml) 100 ML 7.75 MCG IV (10:54)
[2020-09-09 11:21] LABS: Ketone (Acetest) Serum Negative (Negative)
[2020-09-09 13:24] LABS: Lactate (Lactic Acid level) 2.8 mmol/L (0.5-2.2)
--- NOTE | 2020-09-09 17:08 | PC.NURSE ---
Patient was taken off of bipap this morning and was alert and oriented x 4. About 30 minuets later patient was disoriented and took of heated high flow. Patient was placed back on bipap after oxygen levels were 78%-81% on heated high flow. Patient has been resting in bed the rest of this shift. Family has been updated on condition
[2020-09-09] MEDS: dexmedetomidine 400 MCG in sodium chloride 0.9% (100 ml) 100 ML 12.91 MCG IV (18:01)
--- NOTE | 2020-09-09 22:17 | PM.PN ---
Subjective Subjective: Interval history: Overnight patient has remained on 100% BiPAP ventilation saturating at 91%. Patient was transitioned over to high flow 60 L's 100% on which she was saturating 88 to 90%. Of being BiPAP patient was AOx3, sluggish in reply, mildly confused but while being on high flow after 30 minutes patient became confused and altered and took the oxygen off at which he desaturated into high 70s and took around 45 minutes to come back to low 90s on BiPAP ventilation. Patient remained on BiPAP ventilation during the day afterwards. Medications: Reviewed: Yes Vitals/I&O/Wt Last Vital Signs Temp 97.5 F L 09/07/20 16:07 Pulse 82 09/09/20 20:46 Resp 28 H 09/09/20 20:32 BP 115/78 09/09/20 20:02 Pulse Ox 92 09/09/20 20:32 09/09/20 09/09/20 09/09/20 06:59 14:59 22:59 Intake Total 80 / 972.000 249.200 / 249.200 271.661 / 520.861 Output Total 1600 / 2175 800 / 800 Balance -1520 / -1203.000 -550.800 / -550.800 271.661 / -279.139 Weight last 48 hrs Weight 97.636 kg Weight 98.968 kg Physical Exam Const: COMMON NORMALS: average body habitus GENERAL APPEARANCE: cooperative, anxious, lethargic and ill appearing ORIENTATION/CONSCIOUSNESS: Yes lethargic HENMT: COMMON NORMALS: normocephalic and atraumatic HEAD & SCALP: normocephalic and atraumatic Chest: CHEST: Yes Symmetrical chest wall rise Resp: EFFORT & INSPECTION: Yes symmetric chest movement OTHER: B/L Crackles present in both guevara , diminished and coarse Cardio: COMMON NORMALS: regular rate, regular rhythm, S1 normal heart sound present, S2 normal heart sound present, No gallops present (Cardio), No rub (Cardio) and Peripheral pulses 2+ throughout RATE: regular rate RHYTHM: regular rhythm HEART SOUNDS: S1 normal heart sound present and S2 normal heart sound present PERIPHERAL PULSES: Peripheral pulses 2+ throughout GI: COMMON NORMALS: Normal to inspection, nondistended, normoactive bowel sounds present, Soft to palpation, non-tender, No hepatosplenomegaly present and no masses AUSCULTATION: Yes normoactive bowel sounds PALPATION: Yes Soft to palpation and Yes No hepatosplenomegaly present RECTAL EXAM: Yes deferred Extremity: COMMON NORMALS: no clubbing, cyanosis or edema and no pedal edema Neuro: SENSORIUM/ORIENTATION: Yes lethargic Urinary Catheter Management^: Jaquez: Cath Placed During This Visit: yes Reason for Continuing Indwelling Catheter: Accurate Measurement of Urinary Output in Critically Ill Patients Urinary Catheter Date of Insertion: 09/05/20 Data : 09/09/20 04:33 09/09/20 04:33 Micro: Microbiology 09/08/20 10:42 MRSA Culture - Final Nose A&P Assessment and plan (1) ARDS (adult respiratory distress syndrome): Status: Acute (2) Acute hypoxemic respiratory failure due to COVID-19: Status: Acute (3) Pneumomediastinum: Status: Acute (4) Acute worsening of stage 3 chronic kidney disease: Status: Acute (5) Rhabdomyolysis: Status: Acute (6) Transaminitis: Status: Acute (7) History of renal cell carcinoma: Status post left nephrectomy Status: Acute (8) GERD (gastroesophageal reflux disease): Protonix 40 mg oral daily Status: Acute Qualifiers: Esophagitis presence: esophagitis presence not specified Qualified Code(s): K21.9 - Gastro-esophageal reflux disease without esophagitis Additional A&P Information ARDS secondary COVID-19 pneumonia: Severe disease. Oxygen supplementation keeping saturation around 88 to 90%. Will wean accordingly. Check ABG. Continue remdesivir to finish 5-day course. Last dose today. Post 1 dose of Actemra. Dexamethasone 6 mg IV. Pulmicort twice daily, DuoNebs every 4 hours. Vitamin C, zinc Pulmonary toilet with incentive spirometry and flutter valve when possible. Continue BiPAP support for now. We will continue to monitor inflammatory markers including ESR, CRP, ferritin, LDH, D-dimer. D-dimer trending down. As patient is critically sick continue with full dose anticoagulation. We will continue to monitor hemoglobin. Procalcitonin, MRSA swab, urine Legionella, bacterial antigen negative. Sputum culture still awaited. Blood cultures preliminary negative so far. Stop Vancomycin. C/w Zosyn. Echocardiogram done shows limited view EF around 50% with possible diastolic dysfunction. Strict input output charting. Plan for net 1 L negative by end of the day. CT scan results appreciated. Consistent with pneumomediastinum. Appreciate pulmonology input. Continue with BiPAP support for now. We will try to avoid high pressures as possible. JONA on CKD: Baseline creatinine 1.5. Currently creatinine 1.9 with mild metabolic acidosis. Anion gap normal. Medical reconciliation done for nephrotoxic drugs. Continue to monitor for now. Rhabdomyolysis: Most likely secondary severe hypoxia and sepsis. Continue to monitor CPK daily for now. Seems to be improving. Hold off on further hydration for now given tenuous respiratory status. Transaminitis: Most likely secondary rhabdomyolysis and severe sickness. Trending down. Continue to monitor. Check hepatitis panel, HIV. If continues to worsen will do liver ultrasound. Discussed patient care with his son Mr. Tobias over the phone. We discussed that unfortunately patient is still requiring high oxygen supplementation BiPAP support to maintain his saturations around 90. Patient has developed pneumomediastinum, has worsening of his CKD and it presented there is BiPAP dependent for last 3 days. Mr. Spencer states he does not want his father to suffer and wants to make sure that he remains comfortable. We also discussed of monitoring his vitals and his clinical status for next 24 to 48 hours before making further decisions about goals of care. For now CODE STATUS changed to allow natural . Full dose anticoagulation help with DVT prophylaxis. Protonix for PUD prophylaxis. Attestations Medical Necessity Statement*: Requires further hospitalization for management of ARDS, BiPAP dependent secondary to COVID-19 pneumonia, JONA on CKD Critical Care Time: The high probability of a clinically significant, sudden or life threatening deterioration of the patient's [respiratory, cardiac, goals of care discussion, renal] system(s) required my full and direct attention, intervention and personal management. The critical care time is as shown. This time is in addition to time spent performing any reported procedures but includes the following: [x] Data and vital sign review and interpretation [x] Patient assessment, examination and intervention [x] Documentation [x] Medication orders and management Critical Care Time (min): 90 Coding Level of Care Code Acute Speech Lang Path Therapist for [facility] Diagnoses ARDS (adult respiratory distress syndrome) J80 Acute hypoxemic respiratory failure due to COVID-19 U07.1; J96.01 Pneumomediastinum J98.2 Acute worsening of stage 3 chronic kidney disease N18.30 Rhabdomyolysis M62.82 Transaminitis R74.01 History of renal cell carcinoma Z85.528 GERD (gastroesophageal reflux disease) K21.9 Esophagitis presence: esophagitis presence not specified
[2020-09-10] VITALS (51 sets, daily range): BP systolic 106–142; BP diastolic 67–92; PULSE 68–121; RESP 16–39; TEMP 36.4–36.7; O2SAT 84–97
[2020-09-10] MEDS: dexamethasone 4 mg/mL INJ 6 MG IVP (01:36)
[2020-09-10] MEDS: ipratropium-albuterol 3 mL Neb INHALATION ×4 (02:50→20:33)
[2020-09-10] MEDS: dexmedetomidine 400 MCG in sodium chloride 0.9% (100 ml) 100 ML 12.91 MCG IV (04:38)
[2020-09-10] MEDS: piperacillin-tazobactam 3.375 GM in sodium chloride 0.9% (plus) 50 ML IV ×3 (04:49→21:28)
[2020-09-10 05:22] LABS: Basophils % 0.1 %; Eosinophils # 0.1 10^3/uL (0.0-0.8); Eosinophils % 0.9 %; Hematocrit 49.6 % (42.0-52.0); Hemoglobin 15.8 g/dL (11.7-16.6); Lymphocytes # 0.4 10^3/uL (0.8-4.8); Lymphocytes % 3.6 %; Mean Corpuscular HGB Conc 31.9 g/dL (30.0-36.0); Mean Corpuscular Hemoglobin 28.9 pg (28.0-34.0); Mean Corpuscular Volume 90.7 fL (80-94); Mean Platelet Volume 11.5 fL (7.4-10.4); Monocytes # 0.3 10^3/uL (0.2-0.9); Monocytes % 3.4 %; Neutrophils # 8.99 10^3/uL (1.8-7.7); Neutrophils % 90.9 %; Nucleated Red Blood Cells % 0 %; Platelet Count 192 10^3/cmm (130-400); Red Blood Count 5.47 10^6/uL (4.1-5.3); Red Cell Distribution Width 13.1 % (12.1-15.1); White Blood Count 9.9 10^3/uL (4.0-10.0)
[2020-09-10 05:37] LABS: D Dimer 1.33 ug/mIFEU (0-0.59)
[2020-09-10 05:43] LABS: ABG PCO2 35.9 mmHg (35-45); ABG PH Result 7.44 (7.35-7.45); Base Excess ABG 0.8 mmol/L (-2.0-2.0); HCO3 ABG 24.5 mmol/L (22-26); Oxygen Saturation ABG 90.3; PO2 ABG 58.8 mmHg (80.0-100.0)
[2020-09-10 05:44] LABS: Arterial Blood Gas Hematocrit 50.9 % (42-52); Carboxyhemoglobin 0.5 %THgb (0.4-20.1); HGB O2 Sat 89.2 % (95-100); Ionized Calcium Level - ABG 1.2 mmol/L (1.1-1.4); Methemoglobin 0.7 % (0.4-1.5); Oxygen Device BIPAP; Potassium Level - ABG 4.2 mmol/L (3.5-5.0); Total Hemoglobin 16.6 g/dL (14-18)
[2020-09-10 06:06] LABS: Alanine Aminotransferase 170 U/L (0-41); Albumin Level 3.6 g/dL (3.5-5.2); Alkaline Phosphatase 94 IU/L (40-130); Anion Gap 19.2 (5-19); Aspartate Amino Transferase 95 U/L (0-40); Blood Urea Nitrogen 68 mg/dL (8-23); C Reactive Protein 6.3 mg/L (0.0-4.9); Calcium 8.6 mg/dL (8.5-10.5); Carbon Dioxide 23 mmol/L (22-29); Chloride 110 mmol/L (98-107); Creatine Phosphokinase 93 U/L (39-308); Globulin 3.6 g/dL (1.3-4.6); Glomerular Filtration Rate 31.5 mL/min (90-130); Glucose 174 mg/dL (65-115); NT Pro B Type Natriuretic Pept 70 pg/mL (0-125); Osmolality Calculated 330 mOsm/kg (285-295); Potassium 4.2 mmol/L (3.5-5.1); Sodium 148 mmol/L (136-145); Total Bilirubin 0.9 mg/dL (0.15-1.2); Total Protein 7.2 g/dL (6.6-8.7)
[2020-09-10 06:17] LABS: Ferritin 2656 ng/mL (30-400)
[2020-09-10 08:28] LABS: Glucose Point of Care 150 mg/dL (70-110)
--- NOTE | 2020-09-10 08:40 | XR_ITS ---
WS: [id number] CHEST XRAY TECHNIQUE: Portable chest. CLINICAL INFORMATION: covid COMPARISON: September 07, 2020, CT September 08, 2020 FINDINGS: Heart: Cardiomegaly Lungs: Mild residual pneumomediastinum as seen on the recent chest CT.Coarse bilateral pulmonary infi ltrates appear slightly improved compared to September 07, 2020. Lung volumes have improved. No focal pneu monia or significant pleural fluid. Bones: Normal visualized bony structures. XR/XR chest 1V portable [id number] IMPRESSION: 1. Mild residual pneumomediastinum. This appears slightly improved since the p rior CT. 2. No visualized pneumothorax. 3. Coarse bilateral pulmonary infiltrates appear improved compared to previous . Lung volumes are improved today. 4. No focal consolidation or significant pleural fluid.
--- NOTE | 2020-09-10 08:54 | PM.PN ---
Subjective Subjective: Interval history: Overnight patient has remained on 100% BiPAP ventilation saturating at 91%. Patient was transitioned over to high flow 60 L's 100% on which she was saturating 88 to 90%. Of being BiPAP patient was AOx3, sluggish in reply, mildly confused but while being on high flow after 30 minutes patient became confused and altered and took the oxygen off at which he desaturated into high 70s and took around 45 minutes to come back to low 90s on BiPAP ventilation. Patient remained on BiPAP ventilation during the day afterwards. Medications: Reviewed: Yes Vitals/I&O/Wt Last Vital Signs Temp 97.5 F L 09/07/20 16:07 Pulse 68 09/10/20 06:50 Resp 23 H 09/10/20 04:21 BP 119/83 09/10/20 04:21 Pulse Ox 94 09/10/20 06:50 09/09/20 09/10/20 09/10/20 22:59 06:59 14:59 Intake Total 271.661 / 520.861 154 / 674.861 Output Total 1000 / 1800 Balance 271.661 / -279.139 -846 / -1125.139 Weight last 48 hrs Weight 97.636 kg Physical Exam Const: COMMON NORMALS: average body habitus GENERAL APPEARANCE: cooperative, anxious, lethargic and ill appearing ORIENTATION/CONSCIOUSNESS: Yes lethargic HENMT: COMMON NORMALS: normocephalic and atraumatic HEAD & SCALP: normocephalic and atraumatic Chest: CHEST: Yes Symmetrical chest wall rise Resp: EFFORT & INSPECTION: Yes symmetric chest movement OTHER: B/L Crackles present in both guevara , diminished and coarse Cardio: COMMON NORMALS: regular rate, regular rhythm, S1 normal heart sound present, S2 normal heart sound present, No gallops present (Cardio), No rub (Cardio) and Peripheral pulses 2+ throughout RATE: regular rate RHYTHM: regular rhythm HEART SOUNDS: S1 normal heart sound present and S2 normal heart sound present PERIPHERAL PULSES: Peripheral pulses 2+ throughout GI: COMMON NORMALS: Normal to inspection, nondistended, normoactive bowel sounds present, Soft to palpation, non-tender, No hepatosplenomegaly present and no masses AUSCULTATION: Yes normoactive bowel sounds PALPATION: Yes Soft to palpation and Yes No hepatosplenomegaly present RECTAL EXAM: Yes deferred Extremity: COMMON NORMALS: no clubbing, cyanosis or edema and no pedal edema Neuro: SENSORIUM/ORIENTATION: Yes lethargic Urinary Catheter Management^: Jaquez: Cath Placed During This Visit: yes Reason for Continuing Indwelling Catheter: Accurate Measurement of Urinary Output in Critically Ill Patients Urinary Catheter Date of Insertion: 09/05/20 Data : 09/10/20 04:29 09/10/20 04:29 A&P Assessment and plan (1) ARDS (adult respiratory distress syndrome): Status: Acute (2) Acute hypoxemic respiratory failure due to COVID-19: Status: Acute (3) Pneumomediastinum: Status: Acute (4) Acute worsening of stage 3 chronic kidney disease: Status: Acute (5) Rhabdomyolysis: Status: Acute (6) Transaminitis: Status: Acute (7) History of renal cell carcinoma: Status post left nephrectomy Status: Acute (8) GERD (gastroesophageal reflux disease): Protonix 40 mg oral daily Status: Acute Qualifiers: Esophagitis presence: esophagitis presence not specified Qualified Code(s): K21.9 - Gastro-esophageal reflux disease without esophagitis Additional A&P Information ARDS secondary COVID-19 pneumonia: Severe disease. Oxygen supplementation keeping saturation around 88 to 90%. Wean to high flow as possible for as long as possible to give patient breaks from BiPAP. Check ABG in a.m. Continue remdesivir to finish 5-day course. Last dose today. Post 1 dose of Actemra. Dexamethasone 6 mg IV. Pulmicort twice daily, DuoNebs every 4 hours. Vitamin C, zinc Pulmonary toilet with incentive spirometry and flutter valve when possible. We will continue to monitor inflammatory markers including ESR, CRP, ferritin, LDH, D-dimer. Inflammatory markers improving. D-dimer trending down. As patient is critically sick continue with full dose anticoagulation. We will continue to monitor hemoglobin. Procalcitonin, MRSA swab, urine Legionella, bacterial antigen negative. Sputum culture still awaited. Blood cultures preliminary negative so far. Continue Zosyn to finish a 7-day course. Echocardiogram done shows limited view EF around 50% with possible diastolic dysfunction. Strict input output charting. Patient net 2.5 L negative since admission. Lasix as needed daily. Pneumomediastinum: Appears to be improving on today's chest x-ray. Appreciate pulmonology input. Continue with BiPAP support for now. We will try to avoid high pressures as possible. Hypernatremia: Patient has poor oral intake secondary to being BiPAP dependent. Will encourage sips of water on BiPAP free time. Start patient on D5W at 50 cc/h. Will monitor for fluid overload. Can dose her dose of Lasix depending on input and output during the day. Monitor sodium levels daily. JONA on CKD: Baseline creatinine 1.5. Creatinine mildly worse today. Anion gap is normal. Medical reconciliation done for nephrotoxic drugs. Continue to monitor for now. Rhabdomyolysis: Resolved. Most likely secondary severe hypoxia and sepsis. Continue to monitor CPK daily for now. Transaminitis: Most likely secondary rhabdomyolysis and severe sickness. Trending down. Continue to monitor. Check hepatitis panel, HIV. If continues to worsen will do liver ultrasound. Discussed patient care with his son Mr. Tobias over the phone. We discussed that unfortunately patient is still requiring high oxygen supplementation BiPAP support to maintain his saturations around 90. Patient has developed pneumomediastinum, has worsening of his CKD and it presented there is BiPAP dependent for last 3 days. Mr. Spencer states he does not want his father to suffer and wants to make sure that he remains comfortable. We also discussed of monitoring his vitals and his clinical status for next 24 to 48 hours before making further decisions about goals of care. CODE STATUS DNR/DNI. Full dose anticoagulation help with DVT prophylaxis. Protonix for PUD prophylaxis. Attestations Medical Necessity Statement*: Requires further hospitalization for management of ARDS secondary COVID-19 pneumonia BiPAP dependent presently. Time Spent in Patient Care: Greater than 35 minutes (>than 50% of time spent in counselling and/or direct pt care on unit). Coding Level of Care Code Acute Race Starter for [facility] Fwd Exam Detailed Diagnoses ARDS (adult respiratory distress syndrome) J80 Acute hypoxemic respiratory failure due to COVID-19 U07.1; J96.01 Pneumomediastinum J98.2 Acute worsening of stage 3 chronic kidney disease N18.30 Rhabdomyolysis M62.82 Transaminitis R74.01 History of renal cell carcinoma Z85.528 GERD (gastroesophageal reflux disease) K21.9 Esophagitis presence: esophagitis presence not specified
[2020-09-10] MEDS: enoxaparin 100 mg/mL Syringe SUBCUT ×2 (08:58→21:28)
[2020-09-10] MEDS: ascorbic acid 500 mg Tablet PO (08:59)
[2020-09-10] MEDS: benzonatate 100 mg Capsule PO (08:59)
[2020-09-10] MEDS: dextrose 5% 1,000 ML 75 ML IV (08:59)
[2020-09-10] MEDS: pantoprazole DR 40 mg Tablet PO (08:59)
[2020-09-10] MEDS: zinc gluconate 50 mg Tablet PO (08:59)
--- NOTE | 2020-09-10 09:07 | PC.CHAP ---
Pastoral Care Encounter/Spiritual Assessment Type of Contact [] Declined audograph operator visit [] Patient/Family/Request visit [] Outpatient visit [] Follow-up visit [] Physician referral [] Code/Alert [x] Routine visit [] Staff referral [] Actively dying [] Patient sleeping [] Family support [] [] Out of room [] Palliative care [] [] Receiving care in room [] Pre-surgical visit [] Trauma [] Long length of stay [x] ICU visit [x] Other: isolated Relational/Emotional Strength [] Patient feels connected with others/family/visitors/staff [] Distress [] Loneliness/isolation [] Abandonment Spirituality of Patient [] Person of [place] [] Attends Sikhism of their [place] [] Believes in Prayer [] Reads Bible or Hoahaoism materials [] There are Spiritual issues to be addressed Outreach Counselor Interventions [x] Prayer [] Active listening [] Non-anxious presence [] Spiritual/emotional support [] Crisis/trauma care [] Spiritual counseling [] Bereavement support [] Provided bereavement packet [] Provided Bible/devotional materials [] Provided toy/stuffed animal, coloring book to patient or family member [] Provided Communion [] Anointing/[place] [] Salvation [x] Completed spiritual assessment [] Other: Impact on Illness or Injury [] Angry [] Fearful [] Anxious [] Often cries [] Exhaustion [] Unable to work [] Unable to attend samaritan [] Unable to walk/stand [] Unable to read [] Unable to drive [] Unable to eat/drink [] Unable to sleep [] Unable to be with family [] Patient intubated [] Other: Summary Time spent with patient
[2020-09-10] MEDS: budesonide 0.5 mg/2 mL Neb INHALATION ×2 (09:40→20:33)
--- NOTE | 2020-09-10 12:02 | PC.SOCIAL ---
IMM Not Updated Pg. 2 of IMM not updated r/t patient not expected to d/c in the next two days.
[2020-09-10] MEDS: dexmedetomidine 400 MCG in sodium chloride 0.9% (100 ml) 100 ML 10.33 MCG IV (13:01)
[2020-09-10 13:12] LABS: Glucose Point of Care 155 mg/dL (70-110)
[2020-09-10] MEDS: FUROsemide 10 mg/mL SDV 2mL 20 MG IVP (17:59)
[2020-09-10 18:01] LABS: Blood Gas Allen Test Pos; Blood Gas Sample Site Radial, right; Blood Gas Sample Type Arterial
--- NOTE | 2020-09-10 18:02 | PC.NURSE ---
Lasix IVP given by Divya Perdomo RN.
[2020-09-10 20:01] LABS: Blood Urea Nitrogen 60 mg/dL (8-23); Carbon Dioxide 24 mmol/L (22-29); Chloride 109 mmol/L (98-107); Glomerular Filtration Rate 37.6 mL/min (90-130); Glucose 154 mg/dL (65-115); Osmolality Calculated 324 mOsm/kg (285-295); Sodium 147 mmol/L (136-145)
--- NOTE | 2020-09-10 21:16 | PC.NUTR ---
Nutrition reassessment: RD available for nutrition support recommendations if consistent with goals of care, as today is day 4 of no nutritional intake (with days prior to that low caloric intake as well). If oral diet is preferred, recommend d/c renal restrictions and provide any items pt may safely eat at this time to promote po intake. See full RD assessments for further details.
--- NOTE | 2020-09-10 23:27 | P.PN_ITS ---
Subjective Subjective: Interval history: -Continues to require BiPAP 100% FiO2 -No change in clinical condition Medications: Reviewed: Yes Vitals/I&O/Wt Last Vital Signs Temp 97.6 F 09/10/20 19:47 Pulse 81 09/10/20 23:15 Resp 23 H 09/10/20 23:15 BP 131/88 09/10/20 23:15 Pulse Ox 92 09/10/20 23:15 09/10/20 09/10/20 09/11/20 14:59 22:59 06:59 Intake Total 151.736 / 016.397 5745.933 / 1272.669 Output Total 500 / 500 Balance -348.264 / -615.586 6391.933 / 772.669 Weight last 48 hrs Weight 215 lb 4 oz Physical Exam Narrative: EXAM NARRATIVE: General: alert, NAD HEENT: conj clear, EOMI, PERRL, mmm, Neck: supple, no meningismus Heme: no cervical LAP Pulmonary: Bilateral diffuse crackles Cardiovascular: rrr, nl s1s2, no mrg Abdomen: soft, nt, nd, no r/g, bs+ Extremities: pulses +, no edema, no c/c : no CVA tenderness Skin: intact, no rash MSK: no back or neck pain Neurologic: grossly intact Urinary Catheter Management^: Jaquez: Cath Placed During This Visit: yes Reason for Continuing Indwelling Catheter: Accurate Measurement of Urinary Output in Critically Ill Patients Urinary Catheter Date of Insertion: 09/05/20 Data : 09/10/20 04:29 09/10/20 18:40 Other Labs: Laboratory Results WBC 9.9 10^3/uL (4.0-10.0) 09/10/20 04:29 RBC 5.47 10^6/uL (4.1-5.3) H 09/10/20 04:29 Hgb 15.8 g/dL (11.7-16.6) 09/10/20 04:29 Hct 49.6 % (42.0-52.0) 09/10/20 04:29 MCV 90.7 fL (80-94) 09/10/20 04:29 MCH 28.9 pg (28.0-34.0) 09/10/20 04:29 MCHC 31.9 g/dL (30.0-36.0) 09/10/20 04:29 RDW 13.1 % (12.1-15.1) 09/10/20 04:29 Plt Count 192 10^3/cmm (130-400) 09/10/20 04:29 MPV 11.5 fL (7.4-10.4) H 09/10/20 04:29 Neut % (Auto) 90.9 % 09/10/20 04:29 Lymph % (Auto) 3.6 % 09/10/20 04:29 Cr[place]enden % (Auto) 3.4 % 09/10/20 04:29 Eos % (Auto) 0.9 % 09/10/20 04:29 Baso % (Auto) 0.1 % 09/10/20 04:29 Neut # (Auto) 8.99 10^3/uL (1.8-7.7) H 09/10/20 04:29 Lymph # (Auto) 0.4 10^3/uL (0.8-4.8) L 09/10/20 04:29 Crittenden # (Auto) 0.3 10^3/uL (0.2-0.9) 09/10/20 04:29 Eos # (Auto) 0.1 10^3/uL (0.0-0.8) 09/10/20 04:29 Baso # (Auto) 0.0 10^3/uL (0.0-0.1) 09/10/20 04:29 Nucleated RBC % (auto) 0 % 09/10/20 04:29 Nucleated RBCs # 0.0 /100WBC 09/10/20 04:29 ESR 26 mm/hr (0-10) H 09/08/20 06:46 PT 13.40 SECONDS (12.1-14.9) 09/04/20 23:20 INR 0.99 (0.8-1.2) 09/04/20 23:20 APTT 27.4 SECONDS (23.9-36.7) 09/04/20 23:20 Fibrinogen 459 mg/dL (174-498) 09/08/20 06:46 D-Dimer 1.33 ug/mIFEU (0-0.59) H 09/10/20 04:29 Specimen Type Arterial 09/10/20 05:20 Sample Site Radial, right 09/10/20 05:20 ABG pH 7.44 (7.35-7.45) 09/10/20 05:20 ABG pCO2 35.9 mmHg (35-45) 09/10/20 05:20 ABG pO2 58.8 mmHg (80.0-100.0) L 09/10/20 05:20 ABG HCO3 24.5 mmol/L (22-26) 09/10/20 05:20 ABG O2 Saturation 90.3 09/10/20 05:20 ABG Base Excess 0.8 mmol/L (-2.0-2.0) 09/10/20 05:20 Albino Test Pos 09/10/20 05:20 A-a O2 Gradient 70.0 mmHg (5-10) H 09/10/20 05:20 Hematocrit 50.9 % (42-52) 09/10/20 05:20 Hgb O2 Saturation 89.2 % (95-100) L 09/10/20 05:20 Carboxyhemoglobin 0.5 %THgb (0.4-20.1) 09/10/20 05:20 Methemoglobin 0.7 % (0.4-1.5) 09/10/20 05:20 Total Hemoglobin 16.6 g/dL (14-18) 09/10/20 05:20 Sodium 150.0 mmol/L (131-143) H 09/10/20 05:20 Potassium 4.2 mmol/L (3.5-5.0) 09/10/20 05:20 Glucose 178.0 mg/dL (70-115) H 09/10/20 05:20 Ionized Calcium 1.2 mmol/L (1.1-1.4) 09/10/20 05:20 O2 Delivery Device Bipap 09/10/20 05:20 O2 Liters/Min 3.0 % 09/04/20 21:40 FiO2 90.0 % 09/10/20 05:20 Mode BiPAP 01/2109/10/20 05:20 Delinquency Prevention Social Worker ID Morrisnja 09/10/20 05:20 Sodium 147 mmol/L (136-145) H 09/10/20 18:40 Potassium 4.0 mmol/L (3.5-5.1) 09/10/20 18:40 Chloride 109 mmol/L (98-107) H 09/10/20 18:40 Carbon Dioxide 24 mmol/L (22-29) 09/10/20 18:40 Anion Gap 18.0 (5-19) 09/10/20 18:40 BUN 60 mg/dL (8-23) H 09/10/20 18:40 Creatinine 1.8 mg/dL (0.7-1.2) H 09/10/20 18:40 GFR Calculation 37.6 mL/min (90-130) L 09/10/20 18:40 Glucose 154 mg/dL (65-115) H 09/10/20 18:40 POC Glucose 155 mg/dL (70-110) H 09/10/20 13:05 Estimat Average Glucose 128 09/09/20 04:33 Hemoglobin A1c 6.1 % (4.0-6.0) H 09/09/20 04:33 Calculated Osmolality 324 mOsm/kg (285-295) H 09/10/20 18:40 Lactic Acid 1.5 mmol/L (0.5-2.2) 09/04/20 23:20 Lactate 2.8 mmol/L (0.5-2.2) H 09/09/20 12:50 Calcium 9.0 mg/dL (8.5-10.5) 09/10/20 18:40 Iron 119 ug/dL (59-158) 09/08/20 06:46 TIBC 212 mcg/dl 09/08/20 06:46 % Saturation 56.1 % (20-50) H 09/08/20 06:46 Unsat Iron Binding 93 ug/dL (112-347) L 09/08/20 06:46 Ferritin 2656 ng/mL (30-400) H 09/10/20 04:29 Total Bilirubin 0.9 mg/dL (0.15-1.2) 09/10/20 04:29 AST 95 U/L (0-40) H 09/10/20 04:29 ALT 170 U/L (0-41) H 09/10/20 04:29 Alkaline Phosphatase 94 IU/L (40-130) 09/10/20 04:29 Creatine Kinase 93 U/L (39-308) 09/10/20 04:29 Troponin T Gen 5 ng/L 37 ng/L (0-15) H 09/04/20 23:20 C-Reactive Protein 6.3 mg/L (0.0-4.9) H 09/10/20 04:29 NT-Pro-B Natriuret Pep 70 pg/mL (0-125) 09/10/20 04:29 Total Protein 7.2 g/dL (6.6-8.7) 09/10/20 04:29 Albumin 3.6 g/dL (3.5-5.2) 09/10/20 04:29 Globulin 3.6 g/dL (1.3-4.6) 09/10/20 04:29 Procalcitonin 0.22 ng/mL (0-0.5) 09/08/20 06:46 TSH 1.18 uIU/mL (0.27-4.20) 09/08/20 06:46 TSH Cancelled 09/08/20 06:46 Vancomycin Trough 14.7 ug/mL (10-15) 09/08/20 06:46 Serum Ketones Negative (Negative) 09/09/20 04:[address] 09/08/20 11:40 IMPRESSION: 1. Diffuse hazy bilateral groundglass infiltrates suspicious for COVID19 pneumonia. 2. Small to moderate Pneumomediastinum. No pneumothorax. 3. No significant pericardial effusion. 4. No mediastinal or hilar lymphadenopathy. 5. Incidental aberrant right subclavian artery. Notified Jabari Lindsey MD at 09/08/2020 12:51 PM. Chest X-Ray 09/10/20 08:40 IMPRESSION: 1. Mild residual pneumomediastinum. This appears slightly improved since the prior CT. 2. No visualized pneumothorax. 3. Coarse bilateral pulmonary infiltrates appear improved compared to previous. Lung volumes are improved today. 4. No focal consolidation or significant pleural fluid. A&P Assessment and plan (1) ARDS (adult respiratory distress syndrome): Status: Acute (2) Pneumomediastinum: Status: Acute (3) Acute worsening of stage 3 chronic kidney disease: Status: Acute (4) Acute hypoxemic respiratory failure due to COVID-19: Status: Acute (5) Suspected severe acute respiratory syndrome coronavirus 2 (SARS-CoV-2) infection: Status: Acute (6) History of renal cell carcinoma: Status: Acute (7) Obesity (BMI 30-39.9): Status: Acute (8) GERD (gastroesophageal reflux disease): Status: Acute Qualifiers: Esophagitis presence: esophagitis presence not specified Qualified Code(s): K21.9 - Gastro-esophageal reflux disease without esophagitis Overall: Hemant Michaels is a 69 year old male with PMH significant for hyperlipidemia, 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 #Acute hypoxic respiratory failure secondary to ARDS due to COVID-19 pneumonia #Moderate pneumomediastinum #JONA on CKD patient with history of renal cell carcinoma and nephrectomy #Obesity BMI 34.7 #GERD -Currently saturating 92% on BiPAP 01/21 FiO2 95% at high risk for intubation -Also on Precedex 0.3 MCG per hour GTT for anxiety -No change in FiO2 requirements in the last 3 days on BiPAP patient appears not in respiratory distress at this point -We will try to reduce positive pressure as much as possible to prevent worsening of pneumomediastinum; while maintaining saturations greater than 88; -Chest x-ray today Mild residual pneumomediastinum. This appears slightly impro mike since the prior CT. No visualized pneumothorax. Coarse bilateral pulmonary infiltrates appear improved compared to previous. Lung volumes are improved today. -Patient is DNI as per family and will continue to provide supportive care -If any signs of patient suffering respiratory russell-we will update family as they do not want patient to suffer and would want comfort care -Continues to be afebrile, normal white count, procalcitonin 0.22, cultures negative so far, urine Legionella antigen, bacterial antigens, MRSA nares negative -Improving ESR, CRP, ferritin, monitor inflammatory markers every 48 hours -Completed 5 days of remdesivir and 1 dose of Actemra -Currently on dexamethasone 6 mg IV push daily -Pulmicort 0.5 and DuoNeb every 6 hours scheduled; incentive spirometry as tolerated -On Zosyn every 8 hours scheduled to complete 7-day course -Lovenox 100 mg subcutaneous every 12 hours for DVT prophylaxis and high D-dimer -On Lasix 40 mg daily -I/O/N since admission-1.3 L;Last 24 hours -1.1 L; electrolytes within normal limits -Worsening LFTs-secondary to [id number] LFTs; hold lipitor -Sugars moderately controlled-As he is on steroids, A1c 6.1-patient prediabetic- we will cover with scale coverage -Patient is n.p.o. and sodium 147 ; patient on dextrose 75 mils per hour Medical condition explained to the patient at bedside and he verbalized und erstanding and agreed with the plan Recommendations conveyed to hospitalist, RN, RT covering the patient Attestations Medical Necessity Statement*: Requires further hospitalization for management of ARDS, BiPAP dependent secondary to COVID-19 pneumonia, JONA on CKD Critical Care Time: The high probability of a clinically significant, sudden or life threatening deterioration of the patient's [respiratory, cardiac, renal] system(s) required my full and direct attention, intervention and personal management. The critical care time is as shown. 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
[2020-09-11] VITALS (51 sets, daily range): BP systolic 105–139; BP diastolic 72–106; PULSE 72–97; RESP 16–27; TEMP 36.4–36.9; O2SAT 88–98
[2020-09-11] MEDS: ipratropium-albuterol 3 mL Neb INHALATION ×7 (00:18→23:05)
[2020-09-11] MEDS: dextrose 5% 1,000 ML 75 ML IV ×3 (01:16→23:28)
[2020-09-11] MEDS: dexmedetomidine 400 MCG in sodium chloride 0.9% (100 ml) 100 ML 18.08 MCG IV (01:17)
[2020-09-11] MEDS: dexamethasone 4 mg/mL INJ 6 MG IVP (01:19)
[2020-09-11] MEDS: piperacillin-tazobactam 3.375 GM in sodium chloride 0.9% (plus) 50 ML IV ×3 (04:24→23:32)
[2020-09-11 05:11] LABS: ABG PCO2 35.9 mmHg (35-45); ABG PH Result 7.43 (7.35-7.45); Alveolar-Arterial Oxygen Gradi 77.3 mmHg (5-10); Arterial Blood Gas Hematocrit 54.3 % (42-52); Base Excess ABG -0.3 mmol/L (-2.0-2.0); Blood Gas Allen Test Pos; Blood Gas Operator Identificat JB; Blood Gas Sample Site Radial, right; Blood Gas Sample Type Arterial; Carboxyhemoglobin 0.3 %THgb (0.4-20.1); HCO3 ABG 23.6 mmol/L (22-26); HGB O2 Sat 93.7 % (95-100); Ionized Calcium Level - ABG 1.2 mmol/L (1.1-1.4); Methemoglobin 0.2 % (0.4-1.5); Oxygen Saturation ABG 94.1; PO2 ABG 72.9 mmHg (80.0-100.0); Potassium Level - ABG 4.1 mmol/L (3.5-5.0); Total Hemoglobin 17.7 g/dL (14-18)
[2020-09-11 05:26] LABS: Oxygen Device BIPAP
[2020-09-11 07:28] LABS: Basophils % 0.1 %; Eosinophils # 0.1 10^3/uL (0.0-0.8); Eosinophils % 0.8 %; Hematocrit 53.8 % (42.0-52.0); Lymphocytes # 0.3 10^3/uL (0.8-4.8); Lymphocytes % 2.9 %; Mean Corpuscular HGB Conc 31.6 g/dL (30.0-36.0); Mean Corpuscular Hemoglobin 29.4 pg (28.0-34.0); Mean Corpuscular Volume 92.9 fL (80-94); Mean Platelet Volume 11.7 fL (7.4-10.4); Monocytes # 0.4 10^3/uL (0.2-0.9); Monocytes % 3.3 %; Neutrophils % 91.9 %; Nucleated Red Blood Cells % 0 %; Platelet Count 213 10^3/cmm (130-400); Red Blood Count 5.79 10^6/uL (4.1-5.3); Red Cell Distribution Width 13.2 % (12.1-15.1); White Blood Count 10.7 10^3/uL (4.0-10.0)
[2020-09-11 07:51] LABS: D Dimer 1.34 ug/mIFEU (0-0.59)
[2020-09-11 07:59] LABS: Alanine Aminotransferase 157 U/L (0-41); Albumin Level 3.8 g/dL (3.5-5.2); Alkaline Phosphatase 106 IU/L (40-130); Anion Gap 21.3 (5-19); Aspartate Amino Transferase 79 U/L (0-40); Blood Urea Nitrogen 64 mg/dL (8-23); Calcium 8.8 mg/dL (8.5-10.5); Carbon Dioxide 24 mmol/L (22-29); Chloride 110 mmol/L (98-107); Globulin 3.5 g/dL (1.3-4.6); Glomerular Filtration Rate 33.3 mL/min (90-130); Glucose 183 mg/dL (65-115); Osmolality Calculated 335 mOsm/kg (285-295); Potassium 4.3 mmol/L (3.5-5.1); Sodium 151 mmol/L (136-145); Total Protein 7.3 g/dL (6.6-8.7)
[2020-09-11 08:00] LABS: C Reactive Protein 3.7 mg/L (0.0-4.9); Creatine Phosphokinase 97 U/L (39-308); Procalcitonin 0.13 ng/mL (0-0.5)
[2020-09-11 08:00] LABS: Glucose Point of Care 126 mg/dL (70-110)
[2020-09-11 08:00] LABS: Glucose Point of Care 155 mg/dL (70-110)
[2020-09-11 08:00] LABS: Glucose Point of Care 183 mg/dL (70-110)
[2020-09-11] MEDS: budesonide 0.5 mg/2 mL Neb INHALATION ×2 (08:14→20:34)
[2020-09-11 08:35] LABS: NT Pro B Type Natriuretic Pept 159 pg/mL (0-125)
[2020-09-11 08:36] LABS: Erythrocyte Sedimentation Rate 12 mm/hr (0-10)
[2020-09-11] MEDS: dexmedetomidine 400 MCG in sodium chloride 0.9% (100 ml) 100 ML 15.5 MCG IV ×2 (08:44→15:24)
[2020-09-11] MEDS: enoxaparin 100 mg/mL Syringe SUBCUT ×2 (10:51→18:27)
[2020-09-11 11:41] LABS: Glucose Point of Care 153 mg/dL (70-110)
--- NOTE | 2020-09-11 13:19 | P.PN_ITS ---
Subjective Subjective: Interval history: No acute events overnight. Patient tolerated being on heated high flow for around 3 to 4 hours yesterday. Today morning on examination lying comfortably in bed at 70% BiPAP ventilation 01/21 saturating 94%. On examination was transitioned over to heated high flow. Comfortable during examination. Denies any nausea, and vomiting, headache. Discussed his health in detail with at bedside who is also admitted with similar problems. Medications: Reviewed: Yes Vitals/I&O/Wt Last Vital Signs Temp 97.7 F 09/11/20 11:48 Pulse 79 09/11/20 11:55 Resp 22 H 09/11/20 11:55 BP 139/102 09/11/20 11:48 Pulse Ox 94 09/11/20 11:55 09/10/20 09/11/20 09/11/20 22:59 06:59 14:59 Intake Total 2154.000 / 2305.736 100.624 / 2406.360 1062.126 / 1062.126 Output Total 350 / 850 Balance 2154.000 / 1805.736 -249.376 / 5935.881 3477.126 / 1062.126 Weight last 48 hrs Weight 95.368 kg Physical Exam Const: COMMON NORMALS: average body habitus GENERAL APPEARANCE: cooperative, anxious, lethargic and ill appearing ORIENTATION/CONSCIOUSNESS: Yes lethargic HENMT: COMMON NORMALS: normocephalic and atraumatic HEAD & SCALP: nor mocephalic and atraumatic Chest: CHEST: Yes Symmetrical chest wall rise Resp: EFFORT & INSPECTION: Yes symmetric chest movement OTHER: B/L Crackles present in both guevara , diminished and coarse Cardio: COMMON NORMALS: regular rate, regular rhythm, S1 normal heart sound present, S2 normal heart sound present, No gallops present (Cardio), No rub (Cardio) and Peripheral pulses 2+ throughout RATE: regular rate RHYTHM: regular rhythm HEART SOUNDS: S1 normal heart sound present and S2 normal heart sound present PERIPHERAL PULSES: Peripheral pulses 2+ throughout GI: COMMON NORMALS: Normal to inspection, nondistended, normoactive bowel sounds present, Soft to palpation, non-tender, No hepatosplenomegaly present and no masses AUSCULTATION: Yes normoactive bowel sounds PALPATION: Yes Soft to palpation and Yes No hepatosplenomegaly present RECTAL EXAM: Yes deferred Extremity: COMMON NORMALS: no clubbing, cyanosis or edema and no pedal edema Neuro: SENSORIUM/ORIENTATION: Yes lethargic Urinary Catheter Management^: Jaquez: Cath Placed During This Visit: yes Reason for Continuing Indwelling Catheter: Accurate Measurement of Urinary Output in Critically Ill Patients Urinary Catheter Date of Insertion: 09/05/20 Data : 09/11/20 06:25 09/11/20 06:25 A&P Assessment and plan (1) ARDS (adult respiratory distress syndrome): Status: Acute (2) Acute hypoxemic respiratory failure due to COVID-19: Status: Acute (3) Pneumomediastinum: Status: Acute (4) Acute worsening of stage 3 chronic kidney disease: Status: Acute (5) Rhabdomyolysis: Status: Acute (6) Transaminitis: Status: Acute (7) History of renal cell carcinoma: Status post left nephrectomy Status: Acute (8) GERD (gastroesophageal reflux disease): Protonix 40 mg oral daily Status: Acute Qualifiers: Esophagitis presence: esophagitis presence not specified Qualified Code(s): K21.9 - Gastro-esophageal reflux disease without esophagitis Additional A&P Information ARDS secondary COVID-19 pneumonia: Severe disease. Oxygen supplementation keeping saturation around 88 to 90%. Wean to high flow as possible for as long as possible to give patient breaks from BiPAP. PF ratio on ABG improving. 129>> 63 Continue remdesivir to finish 5-day course. Last dose on September 10. Post 1 dose of Actemra. Dexamethasone 6 mg IV. Pulmicort twice daily, DuoNebs every 4 hours. Vitamin C, zinc Pulmonary toilet with incentive spirometry and flutter valve when possible. We will continue to monitor inflammatory markers including ESR, CRP, ferritin, LDH, D-dimer. Inflammatory markers trending down. CRP normal today. D-dimer trending down. As patient is critically sick continue with full dose anticoagulation. We will continue to monitor hemoglobin. Procalcitonin, MRSA swab, urine Legionella, bacterial antigen negative. Sputum culture still awaited. Blood cultures preliminary negative so far. Continue Zosyn to finish a 7-day course. Was on September 13. Echocardiogram done shows limited view EF around 50% with possible diastolic dysfunction. Strict input output charting. Patient net euvolemic since admission. Lasix as needed daily. Pneumomediastinum: Appears to be improving on today's chest x-ray. Appreciate pulmonology input. Continue with BiPAP support for now. We will try to avoid high pressures as possible. Hypernatremia: Mildly worsening again today. Sodium 151. Patient has poor oral intake secondary to being BiPAP dependent. Will encourage sips of water on BiPAP free time. D5W at 75 cc/h. Will monitor for fluid overload. Repeat BMP in evening. JONA on CKD: Baseline creatinine 1.5. Creatinine has remained stable ranging from 1.8-2.1. Anion gap is normal. Medical reconciliation done for nephrotoxic drugs. Continue to monitor for now. Rhabdomyolysis: Resolved. Most likely secondary severe hypoxia and sepsis. Continue to monitor CPK daily for now. Transaminitis: Most likely secondary rhabdomyolysis and severe sickness. Trending down. Continue to monitor. Check hepatitis panel, HIV. If continues to worsen will do liver ultrasound. Discussed patient care with his son Mr. Tobias over the phone. We discussed that unfortunately patient is still requiring high oxygen supplementation BiPAP support to maintain his saturations around 90. Patient has developed pneumomediastinum, has worsening of his CKD and it presented there is BiPAP dependent for last 3 days. Mr. Spencer states he does not want his father to suffer and wants to make sure that he remains comfortable. We also discussed of monitoring his vitals and his clinical status for next 24 to 48 hours before making further decisions about goals of care. CODE STATUS DNR/DNI. Full dose anticoagulation help with DVT prophylaxis. Protonix for PUD prophylaxis. Attestations Medical Necessity Statement*: Requires further hospitalization for management of ARDS secondary to COVID-19 pneumonia, hypernatremia, pneumomediastinum. Time Spent in Patient Care: Greater than 35 minutes (>than 50% of time spent in counselling and/or direct pt care on unit) . 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
[2020-09-11 17:03] LABS: Glucose Point of Care 147 mg/dL (70-110)
[2020-09-11 21:12] LABS: Glucose Point of Care 138 mg/dL (70-110)
[2020-09-11] MEDS: dexmedetomidine 400 MCG in sodium chloride 0.9% (100 ml) 100 ML 12.91 MCG IV (22:23)
--- NOTE | 2020-09-11 23:47 | PC.NURSE ---
Shift report received from Diana DOWNEY. Patient is resting in bed w/eyes closed currently on Precedex 0.6 mcg. Patient arouses to verbal commands. No signs of pain present. VS stable.
[2020-09-12] VITALS (21 sets, daily range): BP systolic 123–151; BP diastolic 78–91; PULSE 74–107; RESP 16–36; TEMP 36.4–37; O2SAT 88–96
[2020-09-12] MEDS: dexamethasone 4 mg/mL INJ 6 MG IVP (02:23)
[2020-09-12] MEDS: ipratropium-albuterol 3 mL Neb INHALATION ×4 (03:42→23:22)
[2020-09-12] MEDS: dexmedetomidine 400 MCG in sodium chloride 0.9% (100 ml) 100 ML 12.91 MCG IV (06:06)
[2020-09-12 06:37] LABS: Glucose Point of Care 164 mg/dL (70-110)
[2020-09-12 08:42] LABS: Basophils % 0.2 %; Eosinophils # 0.2 10^3/uL (0.0-0.8); Eosinophils % 1.4 %; Hematocrit 53.5 % (42.0-52.0); Lymphocytes # 0.2 10^3/uL (0.8-4.8); Lymphocytes % 1.8 %; Mean Corpuscular HGB Conc 31.8 g/dL (30.0-36.0); Mean Corpuscular Hemoglobin 29.4 pg (28.0-34.0); Mean Corpuscular Volume 92.6 fL (80-94); Mean Platelet Volume 11.9 fL (7.4-10.4); Monocytes # 0.3 10^3/uL (0.2-0.9); Neutrophils # 12.36 10^3/uL (1.8-7.7); Neutrophils % 93.7 %; Nucleated Red Blood Cells % 0 %; Platelet Count 210 10^3/cmm (130-400); Red Blood Count 5.78 10^6/uL (4.1-5.3); Red Cell Distribution Width 13.3 % (12.1-15.1); White Blood Count 13.2 10^3/uL (4.0-10.0)
[2020-09-12] MEDS: budesonide 0.5 mg/2 mL Neb INHALATION ×2 (08:51→20:16)
[2020-09-12 09:07] LABS: Alanine Aminotransferase 129 U/L (0-41); Albumin Level 3.7 g/dL (3.5-5.2); Alkaline Phosphatase 140 IU/L (40-130); Anion Gap 20.1 (5-19); Aspartate Amino Transferase 69 U/L (0-40); Blood Urea Nitrogen 57 mg/dL (8-23); Calcium 8.8 mg/dL (8.5-10.5); Carbon Dioxide 24 mmol/L (22-29); Chloride 107 mmol/L (98-107); Globulin 3.4 g/dL (1.3-4.6); Glomerular Filtration Rate 35.3 mL/min (90-130); Glucose 172 mg/dL (65-115); Osmolality Calculated 324 mOsm/kg (285-295); Potassium 4.1 mmol/L (3.5-5.1); Sodium 147 mmol/L (136-145); Total Protein 7.1 g/dL (6.6-8.7)
[2020-09-12 09:40] LABS: C Reactive Protein 2.5 mg/L (0.0-4.9)
[2020-09-12 09:47] LABS: Procalcitonin 0.11 ng/mL (0-0.5)
[2020-09-12 09:58] LABS: Erythrocyte Sedimentation Rate 12 mm/hr (0-10)
[2020-09-12 10:41] LABS: ABG PCO2 28.9 mmHg (35-45); ABG PH Result 7.45 (7.35-7.45); Alveolar-Arterial Oxygen Gradi 58.8 mmHg (5-10); Arterial Blood Gas Hematocrit 52.8 % (42-52); Base Excess ABG -2.5 mmol/L (-2.0-2.0); Blood Gas Allen Test Pos; Blood Gas Sample Site Radial, left; Blood Gas Sample Type Arterial; Carboxyhemoglobin 0.6 %THgb (0.4-20.1); Ionized Calcium Level - ABG 1.3 mmol/L (1.1-1.4); Methemoglobin 0.2 % (0.4-1.5); Oxygen Device NC; Oxygen Saturation ABG 82.7; PO2 ABG 45.5 mmHg (80.0-100.0); Potassium Level - ABG 3.8 mmol/L (3.5-5.0); Total Hemoglobin 17.2 g/dL (14-18)
[2020-09-12 10:41] LABS: NT Pro B Type Natriuretic Pept 101 pg/mL (0-125)
[2020-09-12] MEDS: benzonatate 100 mg Capsule PO (10:45)
[2020-09-12] MEDS: zinc gluconate 50 mg Tablet PO (10:45)
[2020-09-12] MEDS: ascorbic acid 500 mg Tablet PO (10:45)
[2020-09-12] MEDS: enoxaparin 100 mg/mL Syringe SUBCUT ×2 (10:46→17:54)
[2020-09-12] MEDS: piperacillin-tazobactam 3.375 GM in sodium chloride 0.9% (plus) 50 ML IV ×2 (10:46→17:53)
[2020-09-12] MEDS: pantoprazole DR 40 mg Tablet PO (10:46)
--- NOTE | 2020-09-12 11:00 | PC.SOCIAL ---
IMM update IMM not updated as patient isn't expected to discharge in the next 24-48 hours.
[2020-09-12 13:17] LABS: Glucose Point of Care 152 mg/dL (70-110)
[2020-09-12] MEDS: dextrose 5% 1,000 ML 75 ML IV (13:18)
[2020-09-12] MEDS: dexmedetomidine 400 MCG in sodium chloride 0.9% (100 ml) 100 ML 10.33 MCG IV (15:32)
--- NOTE | 2020-09-12 15:57 | PM.PN ---
Subjective Subjective: Interval history: No acute events overnight. Today morning patient placed back on heated high flow which he tolerated for around 2 hours after which he became tachycardic and hypoxic. During that time Precedex was switched off. Patient was placed back on BiPAP. Has remained hemodynamically stable and afebrile. Patient has been saturating well on BiPAP 01/21 70% FiO2. Medications: Reviewed: Yes Vitals/I&O/Wt Last Vital Signs Temp 98.6 F 09/12/20 11:31 Pulse 101 H 09/12/20 12:29 Resp 30 H 09/12/20 12:15 BP 136/90 09/12/20 11:31 Pulse Ox 89 L 09/12/20 12:29 09/12/20 09/12/20 09/12/20 06:59 14:59 22:59 Intake Total 1095.872 / 2415.331 1104.000 / 1104.000 50 / 1154.000 Output Total 350 / 1250 Balance 745.872 / 3252.755 8741.000 / 1104.000 50 / 1154.000 Weight last 48 hrs Weight 95.368 kg Weight 95.368 kg Physical Exam Const: COMMON NORMALS: average body habitus GENERAL APPEARANCE: cooperative, anxious, lethargic and ill appearing ORIENTATION/CONSCIOUSNESS: Yes lethargic HENMT: COMMON NORMALS: normocephalic and atraumatic HEAD & SCALP: normocephalic and atraumatic Chest: CHEST: Yes Symmetrical chest wall rise Resp: EFFORT & INSPECTION: Yes symmetric chest movement OTHER: B/L Crackles present in both guevara , diminished and coarse Cardio: COMMON NORMALS: regular rate, regular rhythm, S1 normal heart sound present, S2 normal heart sound present, No gallops present (Cardio), No rub (Cardio) and Peripheral pulses 2+ throughout RATE: regular rate RHYTHM: regular rhythm HEART SOUNDS: S1 normal heart sound present and S2 normal heart sound present PERIPHERAL PULSES: Peripheral pulses 2+ throughout GI: COMMON NORMALS: Normal to inspection, nondistended, normoactive bowel sounds present, Soft to palpation, non-tender, No hepatosplenomegaly present and no masses AUSCULTATION: Yes normoactive bowel sounds PALPATION: Yes Soft to palpation and Yes No hepatosplenomegaly present RECTAL EXAM: Yes deferred Extremity: COMMON NORMALS: no clubbing, cyanosis or edema and no pedal edema Neuro: SENSORIUM/ORIENTATION: Yes lethargic Urinary Catheter Management^: Jaquez: Cath Placed During This Visit: yes Reason for Continuing Indwelling Catheter: Accurate Measurement of Urinary Output in Critically Ill Patients Urinary Catheter Date of Insertion: 09/05/20 Data : 09/12/20 06:07 09/12/20 06:07 Micro: Microbiology 09/06/20 19:48 Blood Culture - Final Blood NO GROWTH AFTER 5 DAYS 09/06/20 19:43 Blood Culture - Final Blood NO GROWTH AFTER 5 DAYS A&P Assessment and plan (1) ARDS (adult respiratory distress syndrome): Status: Acute (2) Acute hypoxemic respiratory failure due to COVID-19: Status: Acute (3) Pneumomediastinum: Status: Acute (4) Acute worsening of stage 3 chronic kidney disease: Status: Acute (5) Rhabdomyolysis: Status: Acute (6) Transaminitis: Status: Acute (7) History of renal cell carcinoma: Status post left nephrectomy Status: Acute (8) GERD (gastroesophageal reflux disease): Protonix 40 mg oral daily Status: Acute Qualifiers: Esophagitis presence: esophagitis presence not specified Qualified Code(s): K21.9 - Gastro-esophageal reflux disease without esophagitis Additional A&P Information ARDS secondary COVID-19 pneumonia: Severe disease. Oxygen supplementation keeping saturation around 88 to 90%. Wean to high flow as possible for as long as possible to give patient breaks from BiPAP. PF ratio on ABG improving. 129>> 63 Continue remdesivir to finish 5-day course. Last dose on September 10. Post 1 dose of Actemra. Dexamethasone 6 mg IV. Pulmicort twice daily, DuoNebs every 4 hours. Vitamin C, zinc Pulmonary toilet with incentive spirometry and flutter valve when possible. We will continue to monitor inflammatory markers including ESR, CRP, ferritin, LDH, D-dimer. Inflammatory markers trending down. CRP normal today. D-dimer trending down. As patient is critically sick continue with full dose anticoagulation. We will continue to monitor hemoglobin. Procalcitonin, MRSA swab, urine Legionella, bacterial antigen negative. Sputum culture still awaited. Blood cultures preliminary negative so far. Continue Zosyn to finish a 7-day course. Last dose on September 13. Echocardiogram done shows limited view EF around 50% with possible diastolic dysfunction. Strict input output charting. Patient net euvolemic since admission. Lasix as needed daily. Pneumomediastinum: Appears to be improving on today's chest x-ray. Appreciate pulmonology input. Continue with BiPAP support for now. We will try to avoid high pressures as possible. Hypernatremia: Patient has poor oral intake secondary to being BiPAP dependent. Will encourage sips of water on BiPAP free time. D5W at 75 cc/h. Will monitor for fluid overload. Repeat BMP in evening. JONA on CKD: Baseline creatinine 1.5. Creatinine has remained stable ranging from 1.8-2.1. Anion gap is normal. Medical reconciliation done for nephrotoxic drugs. Continue to monitor for now. Rhabdomyolysis: Resolved. Most likely secondary severe hypoxia and sepsis. Continue to monitor CPK daily for now. Transaminitis: Most likely secondary rhabdomyolysis and severe sickness. Trending down. Continue to monitor. Check hepatitis panel, HIV. If continues to worsen will do liver ultrasound. Discussed patient care with his son Mr. Tobias over the phone. We discussed that unfortunately patient is still requiring high oxygen supplementation BiPAP support to maintain his saturations around 90. Patient has developed pneumomediastinum, has worsening of his CKD and it presented there is BiPAP dependent for last 3 days. Mr. Spencer states he does not want his father to suffer and wants to make sure that he remains comfortable. We also discussed of monitoring his vitals and his clinical status for next 24 to 48 hours before making further decisions about goals of care. CODE STATUS DNR/DNI. Full dose anticoagulation help with DVT prophylaxis. Protonix for PUD prophylaxis. Attestations Medical Necessity Statement*: Requires further hospitalization for management of severe ARDS, BiPAP to high heated high flow nasal cannula supplementation dependent in setting of severe COVID-19 pneumonia, hypernatremia. Time Spent in Patient Care: Greater than 35 minutes (>than 50% of time spent in counselling and/or direct pt care on unit). Coding Level of Care Code Acute [employer]chand[employer] Coordinator for [facility] Diagnoses ARDS (adult respiratory distress syndrome) J80 Acute hypoxemic respiratory failure due to COVID-19 U07.1; J96.01 Pneumomediastinum J98.2 Acute worsening of stage 3 chronic kidney disease N18.30 Rhabdomyolysis M62.82 Transaminitis R74.01 History of renal cell carcinoma Z85.528 GERD (gastroesophageal reflux disease) K21.9 Esophagitis presence: esophagitis presence not specified
[2020-09-12] MEDS: dexmedetomidine 400 MCG in sodium chloride 0.9% (100 ml) 100 ML 15.5 MCG IV (23:49)
[2020-09-13] VITALS (68 sets, daily range): BP systolic 115–144; BP diastolic 74–93; PULSE 76–102; RESP 20–36; TEMP 36.6–36.9; O2SAT 78–97
[2020-09-13] MEDS: dextrose 5% 1,000 ML 75 ML IV (02:03)
[2020-09-13] MEDS: piperacillin-tazobactam 3.375 GM in sodium chloride 0.9% (plus) 50 ML IV (02:03)
[2020-09-13] MEDS: dexamethasone 4 mg/mL INJ 6 MG IVP (02:04)
[2020-09-13] MEDS: ipratropium-albuterol 3 mL Neb INHALATION ×4 (04:02→20:32)
--- NOTE | 2020-09-13 06:00 | XRR_ITS ---
PROCEDURE INFORMATION: Exam: XR Chest Exam date and time: 09/13/2020 6:00 AM Age: 69 years old Clinical indication: Shortness of breath; Additional info: Covid TECHNIQUE: Imaging protocol: XR of the chest. Views: 1 view. Total images: 1 COMPARISON: CR XR chest 1V portable [id number] 09/10/2020 9:11 AM FINDINGS: Lungs: Bilateral pulmonary opacities are again noted and appear unchanged. Pleural spaces: Unremarkable. No pleural effusion. No pneumothorax. Heart/Mediastinum: Heart size is stable when compared to the prior exam. Bones/joints: Osseous structures are unchanged from the prior exam. XR/XR chest 1V portable [id number] IMPRESSION: Bilateral pulmonary opacities are again noted and appear unchanged.
[2020-09-13] MEDS: dexmedetomidine 400 MCG in sodium chloride 0.9% (100 ml) 100 ML 12.91 MCG IV ×2 (06:19→14:46)
[2020-09-13] MEDS: ondansetron 2 mg/ML SDV 2 mL 4 MG IVP (06:47)
[2020-09-13] MEDS: morphine 4 mg/mL SDV 1 mL 1 MG IVP (07:16)
--- NOTE | 2020-09-13 07:27 | PC.NURSE ---
Per GUILLERMO from Dr. Damico Precedex can be titrated to 1.2 mcg due to patient fighting the BiPap. Currently at 0.7 mcg and patient is tolerating well.
[2020-09-13 07:31] LABS: Alanine Aminotransferase 118 U/L (0-41); Albumin Level 3.4 g/dL (3.5-5.2); Alkaline Phosphatase 178 IU/L (40-130); Anion Gap 18.9 (5-19); Aspartate Amino Transferase 87 U/L (0-40); Blood Urea Nitrogen 44 mg/dL (8-23); Calcium 8.8 mg/dL (8.5-10.5); Carbon Dioxide 25 mmol/L (22-29); Chloride 102 mmol/L (98-107); Creatinine Clr Calc Pharmacy 50.3808; Glomerular Filtration Rate 46.4 mL/min (90-130); Glucose 153 mg/dL (65-115); Osmolality Calculated 308 mOsm/kg (285-295); Potassium 3.9 mmol/L (3.5-5.1); Sodium 142 mmol/L (136-145); Total Bilirubin 1.3 mg/dL (0.15-1.2); Total Protein 6.4 g/dL (6.6-8.7)
[2020-09-13 07:48] LABS: C Reactive Protein 3.9 mg/L (0.0-4.9); NT Pro B Type Natriuretic Pept 158 pg/mL (0-125)
[2020-09-13] MEDS: budesonide 0.5 mg/2 mL Neb INHALATION (08:08)
--- NOTE | 2020-09-13 14:54 | P.PN_ITS ---
Subjective Subjective: Interval history: Overnight patient became agitated and he continued to pull the BiPAP off with a saturation dropping down to high 30s. Patient remained on Precedex drip which was increased to 0.7 Thanks morning today. Since then he has remained on BiPAP 01/21 85% saturating 90%. Given that patient has been on BiPAP for over 8 days now with prior trip free time not more than 7 to 8 hours over that. Still requiring high oxygen supplementation and BiPAP support without having any breaks in between to have diet or sips of water not improving even after maximal supportive care further goals of care discussion was done with patient's son Mr. Spencer over the phone he phone and at bedside. We discussed unfortunately at this stage he continues to require high oxygen supplementation at this point only thing for him is to intubate him for further intubation which puts him at a higher risk for pneumomediastinum, pneumothorax unfortunately also been ventilator depe ndent. Given all the above family decided patient to be made comfort care. Patient's son requested to be put on comfort care measures at around 5 PM as he stays away from [place] and it might take him few hours to be in town. Medications: Reviewed: Yes Vitals/I&O/Wt Last Vital Signs Temp 98.3 F 09/13/20 08:00 Pulse 82 09/13/20 12:30 Resp 26 H 09/13/20 12:30 BP 144/89 09/13/20 12:30 Pulse Ox 90 09/13/20 12:30 09/12/20 09/13/20 09/13/20 22:59 06:59 14:59 Intake Total 237.188 / 2166.876 2403.462 / 2508.650 378 / 378 Output Total 900 / 900 1650 / 1650 Balance 237.188 / 1341.188 267.462 / 1608.650 -1272 / -1272 Weight last 48 hrs Weight 95.889 kg Weight 95.368 kg Physical Exam Const: COMMON NORMALS: average body habitus GENERAL APPEARANCE: coop erative, anxious, lethargic and ill appearing ORIENTATION/CONSCIOUSNESS: Yes lethargic HENMT: COMMON NORMALS: normocephalic and atraumatic HEAD & SCALP: normocephalic and atraumatic Chest: CHEST: Yes Symmetrical chest wall rise Resp: EFFORT & INSPECTION: Yes symmetric chest movement OTHER: B/L Crackles present in both guevara , diminished and coarse Cardio: COMMON NORMALS: regular rate, regular rhythm, S1 normal heart sound present, S2 normal heart sound present, No gallops present (Cardio), No rub (Cardio) and Peripheral pulses 2+ throughout RATE: regular rate RHYTHM: regular rhythm HEART SOUNDS: S1 normal heart sound present and S2 normal heart sound present PERIPHERAL PULSES: Peripheral pulses 2+ throughout GI: COMMON NORMALS: Normal to inspection, nondistended, normoactive bowel sounds present, Soft to palpation, non-tender, No hepatosplenomegaly present and no masses AUSCULTATION: Yes normoactive bowel sounds PALPATION: Yes Soft to palpation and Yes No hepatosplenomegaly present RECTAL EXAM: Yes deferred Extremity: COMMON NORMALS: no clubbing, cyanosis or edema and no pedal edema Neuro: SENSORIUM/ORIENTATION: Yes lethargic Urinary Catheter Management^: Jaquez: Cath Placed During This Visit: yes Reason for Continuing Indwelling Catheter: Accurate Measurement of Urinary Output in Critically Ill Patients Urinary Catheter Date of Insertion: 09/11/20 Data : 09/12/20 06:07 09/13/20 05:03 A&P Assessment and plan (1) ARDS (adult respiratory distress syndrome): Status: Acute (2) Acute hypoxemic respiratory failure due to COVID-19: Status: Acute (3) Pneumomediastinum: Status: Acute (4) Acute worsening of stage 3 chronic kidney disease: Status: Acute (5) Rhabdomyolysis: Status: Acute (6) Transaminitis: Status: Acute (7) History of renal cell carcinoma: Status post left nephrectomy Status: Acute (8) GERD (gastroesophageal reflux disease): Protonix 40 mg oral daily Status: Acute Qualifiers: Esophagitis presence: esophagitis presence not specified Qualified Code(s): K21.9 - Gastro-esophageal reflux disease without esophagitis Additional A&P Information ARDS secondary COVID-19 pneumonia: Severe disease. Oxygen supplementation keeping saturation around 88 to 90%. Wean to high flow as possible for as long as possible to give patient breaks from BiPAP. PF ratio on ABG improving. 129>> 63 Continue remdesivir to finish 5-day course. Last dose on September 10. Post 1 dose of Actemra. Dexamethasone 6 mg IV. Pulmicort twice daily, DuoNebs every 4 hours. Vitamin C, zinc Pulmonary toilet with incentive spirometry and flutter valve when possible. We will continue to monitor inflammatory markers including ESR, CRP, ferritin, LDH, D-dimer. Inflammatory markers trending down. CRP normal today. D-dimer trending down. As patient is critically sick continue with full dose anticoagulation. We will continue to monitor hemoglobin. Procalcitonin, MRSA swab, urine Legionella, bacterial antigen negative. Sputum culture still awaited. Blood cultures preliminary negative so far. Continue Zosyn to finish a 7-day course. Last dose on September 13. Echocardiogram done shows limited view EF around 50% with possible diastolic dysfunction. Strict input output charting. Patient net euvolemic since admission. Lasix as needed daily. Pneumomediastinum: Appears to be improving on today's chest x-ray. Appreciate pulmonology input. Continue with BiPAP support for now. We will try to avoid high pressures as possible. Hypernatremia: Patient has poor oral intake secondary to being BiPAP dependent. Will encourage sips of water on BiPAP free time. D5W at 75 cc/h. Will monitor for fluid overload. Repeat BMP in evening. JONA on CKD: Baseline creatinine 1.5. Creatinine has remained stable ranging from 1.8-2.1. Anion gap is normal. Medical reconciliation done for nephrotoxic drugs. Continue to monitor for now. Rhabdomyolysis: Resolved. Most likely secondary severe hypoxia and sepsis. Continue to monitor CPK daily for now. Transaminitis: Most likely secondary rhabdomyolysis and severe sickness. Trending down. Continue to monitor. Check hepatitis panel, HIV. If continues to worsen will do liver ultrasound. After family's goals of care discussion patient's CODE STATUS changed to comfort measures status only. Morphine and Ativan as needed for comfort and air hunger. Stop IV antibiotics, IV dexamethasone, oral medications. Continue nebulization. Continue Precedex at low-dose. Switch from BiPAP to 2 L nasal cannula. Monitor vitals as per protocol. Attestations Medical Necessity Statement*: Requires further hospitalization for comfort measures status only given severe ARDS with COVID-19 pneumonia with patient being on BiPAP dependent, persistent CKD, hypernatremia, worsening transaminitis. Time Spent in Patient Care: Greater than 35 minutes (>than 50% of time spent in counselling and/or direct pt care on unit) . Coding Level of Care Code Acute General Road Foreman for [facility] Diagnoses ARDS (adult respiratory distress syndrome) J80 Acute hypoxemic respiratory failure due to COVID-19 U07.1; J96.01 Pneumomediastinum J98.2 Acute worsening of stage 3 chronic kidney disease N18.30 Rhabdomyolysis M62.82 Transaminitis R74.01 History of renal cell carcinoma Z85.528 GERD (gastroesophageal reflux disease) K21.9 Esophagitis presence: esophagitis presence not specified
[2020-09-13] MEDS: dexmedetomidine 400 MCG in sodium chloride 0.9% (100 ml) 100 ML 18.08 MCG IV (22:50)
[2020-09-14] VITALS (10 sets, daily range): BP systolic 133–141; BP diastolic 81–99; PULSE 88–95; RESP 30–41; TEMP 36.7–36.8; O2SAT 87–92
[2020-09-14] MEDS: ipratropium-albuterol 3 mL Neb INHALATION ×4 (00:55→08:41)
[2020-09-14] MEDS: LORazepam 2 mg/mL INJ 1 mL IVP ×2 (01:13→11:35)
--- NOTE | 2020-09-14 01:26 | PC.NURSE ---
Late Entry After shift change Dr. Lindsey called to check on the patient. He explained to me that patient was to be on Comfort Care. Patient currently has D5 running and on BiPap. When Mahi respiratory therapist and I went in to speak to the patient and explain to him that we were going to remove the BiPap and put him on O2 via NC @ 2-4L, patients became very distraught. I explained to her that it was discussed earlier with her son and he was to be placed on Comfort Care. said that was absolutely not the case. Patient states that if he is going to he would like to be taken home. I explained to him that his was not yet ready to leave the hospital and she could not go home with him. Patient answers my questions with complete answers. He asks me for drinks of water. Patient and his both agree that they would like to him stay on the BiPap until the morning. I spoke to son Jatinder [phone] and he states that if his Mom and Dad are making decision he would also like to wait until the morning. Jatinder was going to come to the hospital tonight but his Mother asked him to wait until the morning and he agreed that would be a good idea. Patient answers my questions appropriately and often asks for drinks of water.
--- NOTE | 2020-09-14 03:14 | PC.NURSE ---
Late Entry 09/13/20 @ 5049 Patient has asked for OJ several times this evening.
--- NOTE | 2020-09-14 03:15 | PC.NURSE ---
As this nurse was providing patient care, patient was discussing the thunder storm outside. Patient remains A & O, asking for sips of OJ and water.
[2020-09-14] MEDS: dexmedetomidine 400 MCG in sodium chloride 0.9% (100 ml) 100 ML 18.08 MCG IV (03:34)
--- NOTE | 2020-09-14 06:35 | PC.NURSE ---
Patient oxygen saturation has stayed in the high 80's to low 90's. He can tell me where he is at and that him and his have been over 30 years. Patient and are still very firm in wanting to stay on the BiPap until speaking with the doctor again. Patient has drank a large amount of water this evening.
--- NOTE | 2020-09-14 10:56 | DCPLANNER ---
IMM not completed due to pt on Comfort Care and expected to .
[2020-09-14] MEDS: morphine 4 mg/mL SDV 1 mL IVP ×2 (11:05→11:38)
--- NOTE | 2020-09-14 11:57 | PC.NURSE ---
roustabout supervisor notified patient .
--- NOTE | 2020-09-14 12:03 | PC.NURSE ---
Dr vick at bedside having conversation with both patient's and son patient will be made comfortable and the bi pap removed Dr ruiz with instructions to give 6mg Morphine and place patient on 2L NC patient given meds then patient asked to brush his teeth patient then taken off bi pap placed on 2 L NC and ativan administered patient very tachapnic this nurse administered 10mg morphione slow push to aid in air hunger and mor comfort with passing patient 1150 Am on this day
--- NOTE | 2020-09-14 12:12 | P.DES_ITS ---
Discharge Providers DDS Date of Admission: 09/05/20 00:02 Date Summary Completed: 09/14/20 Attending Provider at Admission: Markell Sigala Time of : 11:50 Attending Provider at Discharge: Jabari Lindsey MD Consults: Pulmonology: Datar Primary Care Provider: Paige Aguilar MD Diagnoses Hospital Diagnoses (1) ARDS (adult respiratory distress syndrome): (2) Acute hypoxemic respiratory failure due to COVID-19: (3) Pneumomediastinum: (4) Acute worsening of stage 3 chronic kidney disease: (5) Rhabdomyolysis: (6) Transaminitis: (7) History of renal cell carcinoma: (8) GERD (gastroesophageal reflux disease): Qualifiers: Esophagitis presence: esophagitis presence not specified Qualified Code(s): K21.9 - Gastro-esophageal reflux disease without esophagitis Reason for Visit Reason for Visit: Low Oxygen COVID POS Summary Date and Time of Date of : 09/14/20 Time of : 11:50 Summary Summary: Hemant Michaels is a 69 year old male with PMH significant for hyperlipidemia, 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 He was seen for this by primary care physician in 08/29 during which time he was found to be COVID-19 PCR positive. Also noted poor appetite and generalized weakness. Denied chest pain. No diarrhea or constipation. Denied abdominal pain. Laboratory workup on arrival showed a WBC of 5.2, hemoglobin 16.3, hematocrit of 49.1 and platelet count of 128. D-dimer was elevated 2.91. Arterial blood gas showed a pH of 7.46, pCO2 of 28.5, PO2 of 57.2 and bicarb of 20.3. This was initially on 3 L O2. Sodium 131, potassium 4.1, chloride 93, bicarb 21, BUN 40 and creatinine of 2.1. AST of 181, ALT of 131, alkaline phosphatase is 67, total bilirubin 1.6. Creatinine phosphokinase was elevated at 1709. Troponin of 37. CRP of 83.2. ProBNP of 132. Procalcitonin of 0.26. Chest x-ray showed predominantly peripheral interstitial opacities bilaterally. Initial vital signs showed a temperature of 98.5?, blood pressure of 145/86, heart rate of 101, respiratory rate 24 with O2 saturation of 79%. In emergency room patient was given 50 100 cc bolus of NS, Decadron 10 mg, DuoNeb treatment. Patient will need to the hospital for further management of severe hypoxia/severe ARDS from COVID-19 pneumonia. He was started on treatment with IV remdesivir, IV dexamethasone, elevation treatment and also received a dose of Tocilizumab while in hospitalization. He was also started on empiric broad- spectrum antibiotics and empiric anticoagulation. finisher tailor apprentice was also consulted. Patient remained severely critically ill during hospitalization with his hospitalization getting complicated by patient developing pneumomediastinum. During hospitalization patient remained 100% BiPAP dependent for last 8 days with him being off BiPAP for around 8 to 10 hours in total over last 8 days. On admission he was also found to be in rhabdomyolysis for which he initially required IV fluids. During hospitalization patient also developed JONA on CKD with his creatinine trending up to 2.2. His fluid status was managed as per IV fluids versus late Lasix on a daily basis. Patient also developed mild transaminitis. Because of all the above and patient being 100% BiPAP dependent for around 8 days without any improvement in symptoms or resolution further goals of care discussions were done with patient's at bedside and Mr. Spencer who is patient's son. Family decided comfort measures which were started on September 14 at around 10:30 AM and patient eventually . Patient was comfortable in the end. Additional Data Confirmation of as documented by pronouncing clinician: no pulse, no respirations and no heart sounds Family: at bedside Additional persons at bedside: nursing staff Attending/PCP notified?: I am attending Was code activated?: No Autopsy requested?: No Advance directives?: No Hospice patient?: Yes Discharge Plan Discharge Patient Disposition: Home Condition: Stable Prescriptions: No Action Tylenol Extra Strength 500 mg Tablet 500 - 1,000 mg PO PRN RF: 0 rosuvastatin [Crestor] 20 mg Tablet 10 mg PO DAILY RF: 0 Prilosec OTC 20 mg Tablet,Delayed Release (Dr/Ec) 20 mg PO DAILY PRN (Reason: Heartburn) RF: 0 Referrals: Paige Aguilar MD [Primary Care Provider] - Patient Instructions: Opioid Safety DS Attestations Time Spent in /Discharge Care*: greater than 30 min Quality - AMI: AMI present?: No Quality - Stroke: CVA present?: No Quality - VTE: VTE present?: No Coding Level of Care Code Acute Information Technology Auditor for [facility] Fwd Diagnoses ARDS (adult respiratory distress syndrome) J80 Acute hypoxemic respiratory failure due to COVID-19 U07.1; J96.01 Pneumomediastinum J98.2 Acute worsening of stage 3 chronic kidney disease N18.30 Rhabdomyolysis M62.82 Transaminitis R74.01 History of renal cell carcinoma Z85.528 GERD (gastroesophageal reflux disease) K21.9 Esophagitis presence: esophagitis presence not specified
--- NOTE | 2020-09-14 12:47 | PC.RESP ---
1135 bipap mask was taken off patient and 2LPM NC was placed. Per comfort care orders
--- NOTE | 2020-09-14 14:38 | PC.NURSE ---
unable to waste remainders of morphine form administrations due to discharge of patient to [facility] Tara Ha RN witnessed med disposal
[2020-09-14 15:23] LABS: Glucose Point of Care 91 mg/dL (70-110)
[2020-09-14 15:23] LABS: Glucose Point of Care 157 mg/dL (70-110)
[2020-09-14 15:23] LABS: Glucose Point of Care 151 mg/dL (70-110)
[2020-09-15 09:29] LABS: Glucose Point of Care 103 mg/dL (70-110)
[2020-09-15 09:29] LABS: Glucose Point of Care 98 mg/dL (70-110)
[2020-09-15 09:29] LABS: Glucose Point of Care 130 mg/dL (70-110)
[2020-09-15 14:00] LABS: ABG PCO2 35.4 mmHg (35-45); ABG PH Result 7.45 (7.35-7.45); Alveolar-Arterial Oxygen Gradi 80.3 mmHg (5-10); Base Excess ABG 0.9 mmol/L (-2.0-2.0); Blood Gas Allen Test Pos; Blood Gas Operator Identificat BD; Blood Gas Sample Site Brachial, right; Blood Gas Sample Type Arterial; Carboxyhemoglobin 0.7 %THgb (0.4-20.1); HCO3 ABG 24.4 mmol/L (22-26); HGB O2 Sat 83.7 % (95-100); Ionized Calcium Level - ABG 1.1 mmol/L (1.1-1.4); Methemoglobin 0.6 % (0.4-1.5); Oxygen Device NC; Oxygen Saturation ABG 84.8; PO2 ABG 48.5 mmHg (80.0-100.0); Potassium Level - ABG 3.8 mmol/L (3.5-5.0); Total Hemoglobin 16.3 g/dL (14-18)
== END 2020-09-14 11:50 | disposition expired | DRG 177 ==
LOC: ER 09-05 00:09 → CSU 09-05 00:54 → ICU 09-06 17:01 → MS 2A 09-10 14:56
PROVIDERS: Internal Medicine; Internal Medicine Pulmonary Disease; Nurse Practitioner Family; Admitting Provider Hospitalist; Emergency Provider Emergency Medicine; PCP Family Medicine; Visit Provider Student in an Organized Health Care Education/Training Program
DX: U07.1 COVID-19 (principal); J12.82 Pneumonia due to coronavirus disease 2019; J80 Acute respiratory distress syndrome; M62.82 Rhabdomyolysis; N17.9 Acute kidney failure, unspecified; E87.0 Hyperosmolality and hypernatremia; E87.2 Acidosis; D69.6 Thrombocytopenia, unspecified; E78.5 Hyperlipidemia, unspecified; Z85.528 Personal history of other malignant neoplasm of kidney; Z90.5 Acquired absence of kidney; K21.9 Gastro-esophageal reflux disease without esophagitis; N18.30 Chronic kidney disease, stage 3 unspecified; M19.90 Unspecified osteoarthritis, unspecified site; Z87.442 Personal history of urinary calculi; J98.2 Interstitial emphysema; Z51.5 Encounter for palliative care; Z66 Do not resuscitate; E66.9 Obesity, unspecified; Z68.34 Body mass index [BMI] 34.0-34.9, adult
CPT/HCPCS: 36415; 36416; 36600; 51702; 71045; 71250; 80048; 80051; 80053; 80202; 82009; 82330; 82550; 82728; 82803; 82805; 82962; 83036; 83540; 83550; 83605; 83880; 84145; 84443; 84484; 85025; 85378; 85384; 85610; 85651; 85730; 86140; 86403; 87040; 87449; 87641; 93308; 94640; 94660; 94664; 96361; 96372; 96374; 99291; J0696; J1100; J1644; J1650; J1940; J2060; J2270; J2405; J2543; J3262; J3370; J3535; J7030; J7040; J7050; J7626